=== PATIENT | male | born 1965 | race Caucasian/White ===

== ENCOUNTER → 2017-11-21 15:19 | Outpatient (CLI) | payer MEDICARE, MEDICAID, SELFPAY ==
--- NOTE | 2017-11-21 15:16 | DI.REPORT_ITS ---
SYMPTOMS/DIAGNOSIS: F/U LEFT DISTAL PHALANX FRACTURE LEFT RING FINGER: A single lateral view was obtained at the request of the ordering physician. Comparison is 07/13/17. The patient's ring finger is in a splint. On the lateral view, there is a displaced fracture involving the dorsal aspect of the base of the distal phalanx. There is soft tissue swelling noted.
== END ==
PROVIDERS: PCP Family Medicine; Visit Provider Student in an Organized Health Care Education/Training Program
DX: S62.665A Nondisplaced fracture of distal phalanx of left ring finger, initial encounter for closed fracture (principal); W01.10XA Fall on same level from slipping, tripping and stumbling with subsequent striking against unspecified object, initial encounter
CPT/HCPCS: 73140; 29130; 99214

== ENCOUNTER 2017-12-24 03:43 | Outpatient (CLI) | payer MEDICARE, MEDICAID, SELFPAY ==
[2017-12-24 10:42] LABS: ALT 119 U/L (12-78); AST 67 U/L (15-37); Albumin 4.1 g/dL (3.4-5.0); Alkaline Phosphatase 132 U/L (46-116); Anion Gap 10.9 mmol/L (3-11); BUN 13 mg/dL (7-18); Bilirubin, Total 0.6 mg/dL (0.2-1.0); CO2 26.1 mmol/L (21.0-32.0); CREATININE 0.94 mg/dL (0.70-1.30); Calcium 8.7 mg/dL (8.5-10.1); Chloride 101 mmol/L (98-107); Glucose 200 mg/dL (70-100); Potassium 4.3 mmol/L (3.5-5.1); Sodium 138 mmol/L (136-145); Total Protein 7.4 g/dL (6.4-8.2)
[2017-12-26 05:31] LABS: Hemoglobin A1C 7.7 % (4.5-6.2)
== END 2017-12-24 04:03 ==
PROVIDERS: Internal Medicine; PCP Family Medicine; Visit Provider Family Medicine
DX: E11.9 Type 2 diabetes mellitus without complications (principal)
CPT/HCPCS: 36415; 80053; 83036

== ENCOUNTER 2017-12-28 15:00 | Outpatient (CLI) | payer MEDICARE, MEDICAID, SELFPAY ==
--- NOTE | 2017-12-28 14:45 | DI.RAD_ITS ---
SYMPTOMS/DIAGNOSIS: PAIN, R52 STERNUM: Three views. No osseous abnormalities identified. IMPRESSION: Negative examination.
== END 2017-12-28 15:20 ==
PROVIDERS: PCP Family Medicine; Visit Provider Internal Medicine
DX: R07.2 Precordial pain (principal)
CPT/HCPCS: 71120

== ENCOUNTER → 2018-01-02 15:03 | Outpatient (BNVA) | payer MEDICARE, MEDICAID, SELFPAY | PROVIDERS: PCP Family Medicine; Referring Provider Family Medicine; Visit Provider Student in an Organized Health Care Education/Training Program | DX: S62.665D Nondisplaced fracture of distal phalanx of left ring finger, subsequent encounter for fracture with routine healing (principal); W01.10XD Fall on same level from slipping, tripping and stumbling with subsequent striking against unspecified object, subsequent encounter | CPT/HCPCS: 99213 ==

== ENCOUNTER 2018-03-07 02:03 | Outpatient (CLI) | payer MEDICARE, MEDICAID, SELFPAY ==
[2018-03-07 12:14] LABS: ALT 103 U/L (12-78); AST 53 U/L (15-37); Albumin 4.3 g/dL (3.4-5.0); Alkaline Phosphatase 114 U/L (46-116); Anion Gap 9.2 mmol/L (3-11); BUN 16 mg/dL (7-18); Bilirubin, Total 0.5 mg/dL (0.2-1.0); CO2 29.8 mmol/L (21.0-32.0); CREATININE 0.89 mg/dL (0.70-1.30); Calcium 9.6 mg/dL (8.5-10.1); Chloride 99 mmol/L (98-107); GGT 198 U/L (15-85); Glucose 179 mg/dL (70-100); Potassium 4.5 mmol/L (3.5-5.1); Sodium 138 mmol/L (136-145); Total Protein 7.7 g/dL (6.4-8.2)
[2018-03-07 14:10] LABS: Hemoglobin A1C 7.4 % (4.5-6.2)
== END 2018-03-07 02:23 ==
PROVIDERS: PCP Family Medicine; Visit Provider Family Medicine
DX: R94.5 Abnormal results of liver function studies (principal); E11.9 Type 2 diabetes mellitus without complications
CPT/HCPCS: 36415; 80053; 82977; 83036

== ENCOUNTER 2018-06-03 00:52 | Outpatient (CLI) | payer MEDICARE, MEDICAID, SELFPAY ==
[2018-06-03 10:05] LABS: Hemoglobin A1C 7.4 % (4.5-6.2)
[2018-06-03 10:40] LABS: ALT 80 U/L (12-78); AST 43 U/L (15-37); Alkaline Phosphatase 108 U/L (46-116); BUN 22 mg/dL (7-18); Bilirubin, Total 0.6 mg/dL (0.2-1.0); CREATININE 1.02 mg/dL (0.70-1.30); Calcium 9.3 mg/dL (8.5-10.1); Chloride 99 mmol/L (98-107); Cholesterol 166 mg/dL (50-200); GGT 156 U/L (15-85); Glucose 173 mg/dL (70-100); HDL Cholesterol 40 mg/dL (40-60); LDL CHOLESTEROL 96 mg/dL (<100); Potassium 4.6 mmol/L (3.5-5.1); Sodium 141 mmol/L (136-145); Total Protein 7.6 g/dL (6.4-8.2); Triglyceride 261 mg/dL (30-150)
[2018-06-03 10:51] LABS: Uric Acid 4.7 mg/dL (3.5-7.2)
[2018-06-03 16:47] LABS: COMMENT (LAB VIEW ONLY) 149.83 mg/dL
== END 2018-06-03 01:12 ==
PROVIDERS: PCP Family Medicine; Visit Provider Family Medicine
DX: I63.9 Cerebral infarction, unspecified (principal); E11.9 Type 2 diabetes mellitus without complications; I10 Essential (primary) hypertension; E78.5 Hyperlipidemia, unspecified; M10.9 Gout, unspecified; R94.5 Abnormal results of liver function studies
CPT/HCPCS: 36415; 80053; 80061; 83721; 82043; 82570; 82977; 83036; 84550

== ENCOUNTER → 2018-06-06 09:22 | Outpatient (BNVA) | payer MEDICARE, MEDICAID, SELFPAY | PROVIDERS: PCP Family Medicine; Visit Provider Nurse Practitioner Adult Health | DX: G43.009 Migraine without aura, not intractable, without status migrainosus (principal); E11.40 Type 2 diabetes mellitus with diabetic neuropathy, unspecified; Z79.84 Long term (current) use of oral hypoglycemic drugs; I10 Essential (primary) hypertension | CPT/HCPCS: 99213 ==

== ENCOUNTER 2018-07-11 01:51 | Outpatient (CLI) | payer MEDICARE, MEDICAID, SELFPAY ==
[2018-07-11 11:08] LABS: Hemoglobin A1C 6.9 % (4.5-6.2)
[2018-07-11 12:05] LABS: ALT 91 U/L (12-78); AST 44 U/L (15-37); Albumin 4.2 g/dL (3.4-5.0); Alkaline Phosphatase 115 U/L (46-116); Anion Gap 9.2 mmol/L (3-11); BUN 16 mg/dL (7-18); Bilirubin, Total 0.3 mg/dL (0.2-1.0); CO2 30.8 mmol/L (21.0-32.0); CREATININE 0.93 mg/dL (0.70-1.30); Calcium 9.7 mg/dL (8.5-10.1); Chloride 101 mmol/L (98-107); Glucose 162 mg/dL (70-100); Potassium 4.3 mmol/L (3.5-5.1); Sodium 141 mmol/L (136-145); Total Protein 7.9 g/dL (6.4-8.2)
== END 2018-07-11 02:11 ==
PROVIDERS: PCP Family Medicine; Visit Provider Family Medicine
DX: E11.9 Type 2 diabetes mellitus without complications (principal)
CPT/HCPCS: 36415; 80053; 83036

== ENCOUNTER 2018-10-28 00:17 | Outpatient (CLI) | payer MEDICARE, MEDICAID, SELFPAY ==
[2018-10-28 10:17] LABS: Hemoglobin A1C 7.9 % (4.5-6.2)
[2018-10-28 11:15] LABS: ALT 88 U/L (12-78); AST 51 U/L (15-37); Alkaline Phosphatase 107 U/L (46-116); Anion Gap 10.4 mmol/L (3-11); BUN 18 mg/dL (7-18); Bilirubin, Total 0.6 mg/dL (0.2-1.0); CO2 26.6 mmol/L (21.0-32.0); CREATININE 0.94 mg/dL (0.70-1.30); Calcium 8.6 mg/dL (8.5-10.1); Chloride 103 mmol/L (98-107); GGT 164 U/L (15-85); Glucose 210 mg/dL (70-100); Potassium 4.3 mmol/L (3.5-5.1); Sodium 140 mmol/L (136-145); Total Protein 7.2 g/dL (6.4-8.2)
== END 2018-10-28 00:37 ==
PROVIDERS: PCP Family Medicine; Visit Provider Family Medicine
DX: Z72.89 Other problems related to lifestyle (principal); E11.9 Type 2 diabetes mellitus without complications; R94.5 Abnormal results of liver function studies
CPT/HCPCS: 36415; 80053; 82977; 83036

== ENCOUNTER 2019-01-23 02:08 | Outpatient (CLI) | payer MEDICARE, MEDICAID, SELFPAY ==
[2019-01-23 11:00] LABS: Hemoglobin A1C 6.5 % (4.5-6.2)
[2019-01-23 12:43] LABS: ALT 55 U/L (16-63); AST 29 U/L (15-37); Albumin 4.1 g/dL (3.4-5.0); Alkaline Phosphatase 101 U/L (46-116); BUN 18 mg/dL (7-18); Bilirubin, Total 0.5 mg/dL (0.2-1.0); CREATININE 1.08 mg/dL (0.70-1.30); Chloride 102 mmol/L (98-107); Glucose 153 mg/dL (70-100); Potassium 4.3 mmol/L (3.5-5.1); Sodium 139 mmol/L (136-145); Total Protein 7.8 g/dL (6.4-8.2)
== END 2019-01-23 02:28 ==
PROVIDERS: PCP Family Medicine; Visit Provider Family Medicine
DX: E11.9 Type 2 diabetes mellitus without complications (principal); I10 Essential (primary) hypertension
CPT/HCPCS: 36415; 80053; 83036

== ENCOUNTER 2019-04-17 00:52 | Outpatient (CLI) | payer MEDICARE, MEDICAID, SELFPAY ==
--- NOTE | 2019-04-17 14:16 | DI.US_ITS ---
EXAM: US CAROTID CLINICAL HISTORY: h/o carotid stenosis, CVA, cerebral infarction, I63.9 TECHNIQUE: Ultrasound performed using standard protocol. COMPARISON: CAROTID ULTRASOUND from 05/27/2016 FINDINGS: Bilateral duplex carotid ultrasound was performed. There is bilateral antegrade vertebral flow. The re is little if any visible atheromatous plaque in the carotid circulation. Flow velocities in commo n internal and external carotid arteries are within normal limits bilaterally. IMPRESSION: No evidence of a hemodynamically significant carotid stenosis.
== END 2019-04-17 01:12 ==
PROVIDERS: PCP Family Medicine; Visit Provider Family Medicine
DX: I63.9 Cerebral infarction, unspecified (principal); Z86.79 Personal history of other diseases of the circulatory system
CPT/HCPCS: 93880

== ENCOUNTER → 2019-06-04 13:19 | Outpatient (BNVA) | payer MEDICARE, MEDICAID, SELFPAY | PROVIDERS: PCP Family Medicine; Referring Provider Family Medicine; Visit Provider Nurse Practitioner Adult Health | DX: G43.009 Migraine without aura, not intractable, without status migrainosus (principal) | CPT/HCPCS: 99213 ==

== ENCOUNTER 2019-06-25 14:36 | Outpatient (CLI) | payer MEDICARE, MEDICAID, SELFPAY ==
[2019-06-25 15:26] LABS: Calculated LDL 110 mg/dL (<100); Cholesterol 210 mg/dL (<200); HDL Cholesterol 43 mg/dL (40-60); Triglyceride 289 mg/dL (<150)
[2019-06-25 16:18] LABS: Hemoglobin A1C 6.2 % (3.8-5.6)
== END 2019-06-25 14:56 ==
PROVIDERS: PCP Family Medicine; Visit Provider Family Medicine
DX: E11.9 Type 2 diabetes mellitus without complications (principal); N40.0 Benign prostatic hyperplasia without lower urinary tract symptoms; I63.9 Cerebral infarction, unspecified
CPT/HCPCS: 36415; 80061; 83036; 84153

== ENCOUNTER 2020-04-01 11:36 | Outpatient (RCR) | payer OTHER, MEDICAID, SELFPAY ==
--- NOTE | 2020-04-01 12:30 | HOLTER_ITS ---
APPROVED REPORT Exam Type: HOLTER MONITOR APPLICATION Reason for Test: tachycardia Patient Location: O Conclusion This is a 48-hour Holter monitor ordered for indication of tachycardia. ???The patient was in normal sinus rhythm for the majority of the recording with an average heart rat e of 86 bpm. Maximal heart rate in sinus rhythm was 140 bpm. ???There was one episode of SVT which lasted 4 beats. There were rare PACs. ???There were no episodes of ventricular tachycardia and rare PVCs. ???There were no episodes of atrial fibrillation, no pauses greater than 3 seconds and no evidence of high degree heart block. ???There were no patient triggered events.
== END 2020-04-17 23:59 | disposition home or self-care (01) ==
LOC: RT 11:36
PROVIDERS: PCP Family Medicine; Visit Provider Family Medicine
DX: R00.0 Tachycardia, unspecified (principal); I49.1 Atrial premature depolarization; I47.2 Ventricular tachycardia
CPT/HCPCS: 93227; 93225; 93226

== ENCOUNTER 2020-04-03 01:38 | Outpatient (CLI) | payer OTHER, MEDICAID, SELFPAY ==
[2020-04-03 14:44] LABS: Hemoglobin A1C 7.8 % (<5.7)
[2020-04-03 14:46] LABS: ALT 70 U/L (16-63); AST 38 U/L (15-37); Albumin 4.3 g/dL (3.4-5.0); Alkaline Phosphatase 108 U/L (46-116); Anion Gap 12.6 mmol/L (3-11); BUN 15 mg/dL (7-18); Bilirubin, Total 0.4 mg/dL (0.2-1.0); CO2 23.4 mmol/L (21.0-32.0); CREATININE 1.11 mg/dL (0.70-1.30); Calcium 9.3 mg/dL (8.5-10.1); Chloride 102 mmol/L (98-107); Glucose 182 mg/dL (74-106); Potassium 4.1 mmol/L (3.5-5.1); Sodium 138 mmol/L (136-145); TSH (W/Ref FT4) 1.54 uIU/mL (0.36-3.74); Total Protein 7.7 g/dL (6.4-8.2); Uric Acid 3.4 mg/dL (3.5-7.2)
[2020-04-03 14:57] LABS: Calculated LDL 58 mg/dL (<100); Cholesterol 154 mg/dL (<200); HDL Cholesterol 42 mg/dL (40-60); Triglyceride 271 mg/dL (<150)
[2020-04-03 16:24] LABS: COMMENT (LAB VIEW ONLY) 65.84 mg/dL; Microalb ug/mg Crea 54.8 ug/mg Cr
[2020-04-03 23:09] LABS: PSA, Screening 1.9 ng/mL (0.0-3.5)
== END 2020-04-03 01:58 ==
PROVIDERS: PCP Family Medicine; Visit Provider Family Medicine
DX: I10 Essential (primary) hypertension (principal); E78.5 Hyperlipidemia, unspecified; E11.9 Type 2 diabetes mellitus without complications; M10.9 Gout, unspecified; R00.0 Tachycardia, unspecified; Z12.5 Encounter for screening for malignant neoplasm of prostate
CPT/HCPCS: 36415; 80053; 80061; 84153; 82043; 82570; 83036; 84443; 84550

== ENCOUNTER 2020-04-25 02:58 | Outpatient (CLI) | payer OTHER, MEDICAID, SELFPAY ==
[2020-04-26 15:45] LABS: COVID-19 RT-PCR Result NEGATIVE (Negative)
== END 2020-04-25 03:18 ==
PROVIDERS: PCP Family Medicine; Visit Provider Internal Medicine Cardiovascular Disease
DX: Z11.59 Encounter for screening for other viral diseases (principal); Z01.810 Encounter for preprocedural cardiovascular examination
CPT/HCPCS: U0003

== ENCOUNTER 2020-05-06 02:45 | Outpatient (CLI) | payer OTHER, MEDICAID, SELFPAY ==
[2020-05-07 19:10] LABS: COVID-19 RT-PCR UVMMC Result Negative (Negative)
== END 2020-05-06 03:05 ==
PROVIDERS: Family Medicine; PCP Family Medicine; Visit Provider Internal Medicine Cardiovascular Disease
DX: Z11.52 Encounter for screening for COVID-19 (principal)
CPT/HCPCS: U0003

== ENCOUNTER 2020-05-09 02:52 | Outpatient (CLI) | payer OTHER, MEDICAID, SELFPAY ==
--- NOTE | 2020-05-09 09:00 | ETT_ITS ---
APPROVED REPORT Exam: Exercise Treadmill Patient Location: Out-Patient Room/Bed: Stress Nurse: Sammi Lynne RN Ordering Provider:ALEC CELAYA, Contact Number: [phone] BMI: 41.04 Baseline Rhythm: Sinus Rhythm Comment: Flattened/inverted T waves noted Indications: Tachycardia, chest pressure, chest pain Medical History Medical History: Anxiety, depression, diabetes, etoh abuse, hypertension, hyperlipidemia, carotid subha nosis Cardiac Medications: aspirin, glipizide, lisinopril, omeprazole, rosuvastatin, sitagliptin Allergies: Penicillin, diphenhydramine Cardiac Risk Factors: hypertension, hyperlipidemia, diabetes, obesity, family hx, smoker (former) Previous Cardiac Procedures: None Pretest Chest Pain Characteristics: None Exercise History: Sedentary Physical Disabilities: None Lung Sounds: Clear to auscultation Heart Sounds: Regular Stress Test Details Test: Exercise stress testing was performed using a Eladio protocol. Rest Stress HR Resting HR Supine: 81 bpm Max Heart Rate (APMHR): 164 bpm Resting HR Standin bpm Target HR (85% APMHR): 139 bpm Max HR Achieved: 158 bpm % of APMHR: 96 Recovery HR: 112 bpm HR response to stress: Normal HR response to stress BP Resting BP Supine: 156/92 mmHg Resting BP Standin/80 mmHg Max BP: 192/76 mmHg Recovery BP: 148/76 mmHg BP response to stress: Normal blood pressure response to stress. ECG Resting ECG: Sinus Rhythm Ectopy: None Stress ECG: Sinus Tachycardia ST Change: Horizontal ST depression Lead(s): III, AVF Stage: [address] Deviation: 1 mm Arrhythmia: None Recovery ECG: Sinus Tachycardia Recovery ST Change: No significant ST segment changes noted Recovery Arrhythmia: None Clinical Reason for Termination: Leg pain, dyspnea Stress Symptoms: Leg pain, dyspnea Exercise duration: 4 min34 sec Highest Stage Reached: Stage 2: 2.5 mph at 12% grade. Exercise capacity: 7.00 METs Kamara Treadmill Score: 4.3 Rate Pressure Product: 11510 Stress ECG Conclusion 1. Resting electrocardiogram was normal 2. Patient exercised on the Eladio protocol. He completed a workload of 7 METS, limited by shortness of breath and leg pain. 3. Normal heart rate and blood pressure response to exercise. The patient achieved 96% of predicted heart rate for age 4. Electrocardiographically there was ST depression noted in inferior and lateral leads consistent wi th myocardial ischemia 5. There were no significant dysrhythmias 6. Suggest repeat with imaging if clinically indicated Kamara Treadmill Score is 4.3 which is Moderate risk. Stress Test Summary STAGE Time (mins) Speed (mph) Grade (%) HR BP SYMPTOMS METS Supine 81 156/92 Standing 97 142/80 1 3 1.7 10 140 4.6 1 min recovery 136 186/80 3 min recovery 124 192/76 6 min recovery 112 154/76 9 min recovery 112 148/76 12 min recovery 112 22 min recovery 113 Pt remained tachycardic after 24 minutes in recovery, 113 HR. Pt denied symptoms and stated he did no t take any of his medications today. Instructed to return home and take medications.
== END 2020-05-09 03:12 ==
PROVIDERS: PCP Family Medicine; Visit Provider Family Medicine
DX: R00.0 Tachycardia, unspecified (principal); R07.89 Other chest pain; I10 Essential (primary) hypertension; E78.5 Hyperlipidemia, unspecified; E11.9 Type 2 diabetes mellitus without complications; E66.9 Obesity, unspecified; Z82.49 Family history of ischemic heart disease and other diseases of the circulatory system; Z87.891 Personal history of nicotine dependence
CPT/HCPCS: 93016; 93018; 93017

== ENCOUNTER 2020-05-14 01:51 | Outpatient (CLI) | payer OTHER, MEDICAID, SELFPAY ==
--- NOTE | 2020-05-14 06:45 | DI.US_ITS ---
EXAM: US ABDOMEN CLINICAL HISTORY: ELEVATED LFT'S,R79.89 TECHNIQUE: Ultrasound abdomen performed using standard protocol. COMPARISON: No exams were available for comparison FINDINGS: LIVER: The liver is enlarged, measuring 24 cm in length. There is increased echogenicity consistent with moderate to severe diffuse fatty infiltration.. Posterior portions of the liver are suboptimall y visualized. No focal liver lesions are seen.. GALLBLADDER: No evidence of cholelithiasis. No evidence of wall thickening. No pericholecystic fluid identified. ELLSWORTH'S SIGN: Negative. BILIARY SYSTEM: No intrahepatic or extrahepatic biliary ductal dilation. KIDNEYS: Kidneys are symmetric in size. No evidence of renal calculi. No evidence of hydronephrosis. No renal mass or cyst identified. PANCREAS: Normal where visualized. SPLEEN: Borderline enlargement with a length 12.6 cm. ABDOMINAL AORTA AND IVC: Visualized portions normal caliber. ASCITES: None seen. IMPRESSION: Enlarged liver with moderate to severe fatty infiltration. DATA REPOSITORY:
--- NOTE | 2020-05-14 06:45 | DI.US_ITS ---
APPROVED REPORT EXAM: Comprehensive 2D, Doppler, and color-flow Echocardiogram Patient Location: Out-Patient Android Developer: Hue Zhong RDCS (AE) Indications: Tachycardia, HTN, DM Other Information Study Quality: Fair Conclusion Normal left ventricular wall thickness and chamber size. Estimated ejection fraction is 55 to 60%. There are no segmental wall motion abnormalities Normal right ventricular size and systolic function Both atria are normal in size There are no structural or hemodynamically significant valvular abnormalities Mildly dilated ascending aorta, measuring 3.77 cm Wall motion Left Ventricle The left ventricle is normal size. The left ventricular systolic function is normal. The left ventric ular ejection fraction is within the normal range. There is normal left ventricular wall thickness. T here is normal LV segmental wall motion. There is no ventricular septal defect visualized. LVEF is 55 -60%. Right Ventricle The right ventricle is normal size. The right ventricular systolic function is normal. Atria The left atrium size is normal. The right atrium size is normal. The interatrial septum is intact wit h no evidence for an atrial septal defect. Aortic Valve The aortic valve is normal in structure. Aortic valve is trileaflet. There is no aortic valvular sten osis. No aortic regurgitation is present. Mitral Valve The mitral valve is normal in structure. No evidence of mitral valve stenosis. Trace mitral regurgita tion. Tricuspid Valve The tricuspid valve is normal in structure. There is no tricuspid valve stenosis. Trace tricuspid reg urgitation. Unable to assess PA pressure. Pulmonic Valve Pulmonic valve is not well visualized. There is no pulmonic valvular stenosis. There is no pulmonic v alvular regurgitation. Great Vessels The aortic root is normal in size. The ascending aorta is mildly dilated. Aortic arch is normal in ca liber. The IVC is normal in size and collapses >50% with inspiration. Pericardium There is no pericardial effusion. 2D Dimensions IVSD d PLAX 1.09 cm M: 0.6-1.2 LV Vol A2C d MOD 85.6 mL LVPW d PLAX 1.09 cm M: 0.6 - 1.2 LV Vol A4C d MOD 124.8 mL LVID d PLAX 4.59 cm M: 4.2 - 5.8 LA vol/ BSA A2C s A-L 17.7 mL/m2 LVDs 3.45 cm M: 2.5 - 4.0 LA vol/ BSA A4C s A-L 15.4 mL/m2 Ao Root d 2.90 cm M: 3.1 - 3.7 LA Vol/ BSA Biplane s A-L 17.5 mL/m2 RA Area A4C 16.09 cm2 LA Area A4C s MOD 15.51 cm2 RA Vol/ BSA A4C s A-L 18.4 mL/m2 LA Area A2C s MOD 15.69 cm2 Ao Asc Diam d 3.77 cm M: 2.6 - 3.4 LV EF A4C MOD 50.2 % LV EF Teichholz 49.2 % LV EF A2C MOD 50.0 % LVEF (Finch's) 51.08 % M: 52 - 72 LV EF Biplane MOD 51.1 % LV Volume 75.81 mL M: 62 - 150 SV 54.14 mL LV Volume Index 32.67 mL/m2 M: 34 - 74 SV Index 23.32 mL/m2 LV Vol Biplane MOD 106.0 mL FS 24.80 % M-Mode TAPSE 2.14 cm (M/F) >1.7 LV Diastology MV E' medial 0.130 (>0.07 m/s) E/A Ratio 1.1 LV E/e MED 6.10 (<14) MV E Vmax 0.79 (0.4-1.3 m/s) MV E' lateral 0.123 (>0.1 m/s) MV A Vmax 0.70 (0.4-1.3 m/s) LV E/e LAT 6.40 (<14) MV E/A Ratio 1.07 MV E/E' medial 6.13 MV E/E' lateral 6.43 Aortic Valve LVOT Area 3.80 cm2 AoV Area Vmax 3.34 cm2 LVOT Vmax 1.10 m/s AoV Area/ BSA (Vmax) 1.44 cm2/m2 LVOT Mean Yanick. 0.68 m/s BRONWYN Mean Yanick. 2.84 cm2 LVOT Peak Grad 4.8 mmHg BRONWYN Mean Yanick. Index 1.22 cm2/m2 LVOT Mean Grad 2.2 mmHg LVOT VTI 0.210 m LVOT Diam s 2.15 cm AoV Vmax 1.25 m/s Velocity Ratio 0.88 AoV Mean Yanick. 0.90 m/s AoV Peak Grad 6.2 mmHg LVOT SV 79.92 mL AoV Mean Grad 3.7 mmHg AoV VTI 0.221 m AoV Area VTI 3.61 cm2 AoV Area/ BSA (VTI) 1.55 cm/m2 Mitral Valve MV DT 193 (160-240 msec) MV PHT 56 msec MV Area PHT 3.92 cm2 MV VTI 0.300 m MV Area VTI 2.66 (4.0-6.0 cm2) Pulmonary Valve PV Vmax 1.19 (0.5-1.5 m/s) RVOT Peak Gr. 2.21 mmHg PV Peak Grad 5.7 mmHg RVOT Mean Gr. 1.15 mmHg PV Mean Grad 3.1 mmHg RVOT VTI 0.153 m PV VTI 0.189 m RVOT Vmax 0.74 m/s
== END 2020-05-14 02:11 ==
PROVIDERS: PCP Family Medicine; Visit Provider Family Medicine
DX: R79.89 Other specified abnormal findings of blood chemistry (principal); E11.9 Type 2 diabetes mellitus without complications; I10 Essential (primary) hypertension; R00.0 Tachycardia, unspecified; I77.810 Thoracic aortic ectasia; K76.0 Fatty (change of) liver, not elsewhere classified
CPT/HCPCS: 93306; 76700

== ENCOUNTER → 2020-06-02 08:41 | Outpatient (BNVA) | payer OTHER, MEDICAID, SELFPAY | PROVIDERS: PCP Family Medicine; Referring Provider Family Medicine; Visit Provider Nurse Practitioner Adult Health | DX: G43.009 Migraine without aura, not intractable, without status migrainosus (principal) | CPT/HCPCS: 99213 ==

== ENCOUNTER 2020-06-09 03:03 | Outpatient (CLI) | payer OTHER, MEDICAID, SELFPAY ==
[2020-06-09 14:24] LABS: Hemoglobin A1C 8.3 % (<5.7)
[2020-06-09 15:23] LABS: ALT 67 U/L (16-63); AST 30 U/L (15-37); Albumin 4.6 g/dL (3.4-5.0); Alkaline Phosphatase 117 U/L (46-116); BUN 22 mg/dL (7-18); Bilirubin, Total 0.3 mg/dL (0.2-1.0); CREATININE 1.1 mg/dL (0.70-1.30); Calcium 9.7 mg/dL (8.5-10.1); Chloride 99 mmol/L (98-107); Glucose 228 mg/dL (74-106); Potassium 4.3 mmol/L (3.5-5.1); Sodium 138 mmol/L (136-145); Total Protein 8.5 g/dL (6.4-8.2)
== END 2020-06-09 03:04 | disposition home or self-care (01) ==
LOC: LBO 03:03
PROVIDERS: PCP Family Medicine; Visit Provider Family Medicine
DX: E11.9 Type 2 diabetes mellitus without complications (principal); R79.89 Other specified abnormal findings of blood chemistry
CPT/HCPCS: 36415; 80053; 83036

== ENCOUNTER 2020-09-03 02:56 | Outpatient (CLI) | payer OTHER, MEDICAID, SELFPAY ==
[2020-09-03 08:19] LABS: Hemoglobin A1C 6.5 % (<5.7)
== END 2020-09-03 02:57 | disposition home or self-care (01) ==
PROVIDERS: PCP Family Medicine; Visit Provider Family Medicine
DX: E11.9 Type 2 diabetes mellitus without complications (principal)
CPT/HCPCS: 36415; 83036

== ENCOUNTER 2020-12-10 12:52 | Outpatient (CLI) | payer OTHER, MEDICAID, SELFPAY ==
[2020-12-10 13:35] LABS: Hemoglobin A1C 6.2 % (<5.7)
== END 2020-12-10 12:53 | disposition home or self-care (01) ==
LOC: LBO 12:56
PROVIDERS: PCP Family Medicine; Visit Provider Family Medicine
DX: E11.9 Type 2 diabetes mellitus without complications (principal)
CPT/HCPCS: 36415; 83036

== ENCOUNTER 2021-05-11 03:36 | Outpatient (CLI) | payer MEDICARE, MEDICAID, SELFPAY ==
[2021-05-11 11:54] LABS: Hemoglobin A1C 5.8 % (<5.7)
[2021-05-11 13:12] LABS: ALT 38 U/L (16-63); AST 24 U/L (15-37); Albumin 4.3 g/dL (3.4-5.0); Alkaline Phosphatase 81 U/L (46-116); Anion Gap 10.1 mmol/L (3-11); BUN 18 mg/dL (7-18); Bilirubin, Total 0.5 mg/dL (0.2-1.0); CO2 26.9 mmol/L (21.0-32.0); CREATININE 0.9 mg/dL (0.70-1.30); Calcium 9.1 mg/dL (8.5-10.1); Calculated LDL 67 mg/dL (<100); Chloride 101 mmol/L (98-107); Cholesterol 150 mg/dL (<200); Glucose 115 mg/dL (74-106); HDL Cholesterol 58 mg/dL (40-60); Potassium 4.5 mmol/L (3.5-5.1); Sodium 138 mmol/L (136-145); Total Protein 7.8 g/dL (6.4-8.2); Triglyceride 128 mg/dL (<150)
== END 2021-05-11 03:37 | disposition home or self-care (01) ==
LOC: LBO 03:37
PROVIDERS: PCP Family Medicine; Visit Provider Family Medicine
DX: E78.5 Hyperlipidemia, unspecified (principal); E11.9 Type 2 diabetes mellitus without complications
CPT/HCPCS: 36415; 80053; 80061; 83036

== ENCOUNTER → 2021-05-14 09:29 | Outpatient (BNVA) | payer MEDICARE, MEDICAID, SELFPAY | PROVIDERS: PCP Family Medicine; Referring Provider Family Medicine; Visit Provider Nurse Practitioner Adult Health | DX: G43.009 Migraine without aura, not intractable, without status migrainosus (principal) | CPT/HCPCS: 99213; 99214 ==

== ENCOUNTER → 2021-07-06 08:58 | Outpatient (BNVA) | payer MEDICARE, MEDICAID, SELFPAY | PROVIDERS: PCP Family Medicine; Visit Provider Nurse Practitioner Adult Health | DX: G43.009 Migraine without aura, not intractable, without status migrainosus (principal) | CPT/HCPCS: 99213; 99214 ==

== ENCOUNTER 2021-09-07 14:41 | Outpatient (CLI) | payer MEDICARE, MEDICAID, SELFPAY | END 2021-09-07 14:42 | disposition home or self-care (01) | LOC: LBO 14:43 | PROVIDERS: PCP Family Medicine; Visit Provider Physician Assistant | DX: U07.1 COVID-19 (principal) | CPT/HCPCS: 36415; 82565 ==

== ENCOUNTER → 2021-10-14 10:24 | Outpatient (BNVA) | payer MEDICARE, MEDICAID, SELFPAY | PROVIDERS: PCP Family Medicine; Referring Provider Family Medicine; Visit Provider Nurse Practitioner Adult Health | DX: G43.009 Migraine without aura, not intractable, without status migrainosus (principal); R20.0 Anesthesia of skin | CPT/HCPCS: 99213; 99214 ==

== ENCOUNTER → 2021-12-09 09:31 | Outpatient (BNVA) | payer MEDICARE, MEDICAID, SELFPAY | PROVIDERS: PCP Family Medicine; Referring Provider Family Medicine; Visit Provider Nurse Practitioner Adult Health | DX: G43.009 Migraine without aura, not intractable, without status migrainosus (principal); R20.0 Anesthesia of skin | CPT/HCPCS: 99212; 99213 ==

== ENCOUNTER 2021-12-30 13:54 | Observation (INO) | payer MEDICARE, MEDICAID, SELFPAY ==
[2021-12-30] VITALS (33 sets, daily range): BP systolic 108–132; BP diastolic 65–82; PULSE 68–94; RESP 11–19; TEMP 36.4–37.1; O2SAT 95–96
--- NOTE | 2021-12-30 14:00 | RT.EKG_ITS ---
APPROVED REPORT Exam: Resting ECG Reason for Exam: sternal discomfort when breathing Patient Location: E HR:78 bpm ECG Measurements Heart Rate 78 AXIS VT 145 P 59 QRSd 85 QRS 46 QT 346 T 5 QTc 395 Conclusion Sinus rhythm...normal P axis, V-rate 60- 99 Physician: Rate 78, sinus rhythm, no significant ST elevations or depressions. No evidence of STEMI. unchanged
--- NOTE | 2021-12-30 14:00 | DI.CT_ITS ---
Exam(s) CT CHEST/ABD/PEL W EXAM: CT CHEST/ABD/PEL W CLINICAL HISTORY: vomiting, epigasrtic and chest pain, breathing josé luis. TECHNIQUE: Imaging Protocol: Axial computed tomography images with coronal and sagittal reformatted images were created and reviewed CONTRAST MATERIAL: Intravenous: Omnipaque 350 Contrast volume:100 ml Oral: None COMPARISON: No exams were available for comparison FINDINGS: CHEST: LUNGS: There is some platelike atelectasis and mild increased markings in both lower lobes. No pleur al effusions. No ominous pulmonary nodules. No significant focal findings in the trachea and mainst em bronchi. MEDIASTINUM: There is no hilar nor mediastinal adenopathy. Visualized thyroid unremarkable. CARDIAC: Heart size is normal. There is a small anterior pericardial effusion maximum thickness 12 m illimeters. This does not cover the apex.Caliber thoracic aorta is within normal limits. There is n o dissection. 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 OSSEOUS: No significant osseous lesions.. ABDOMEN: There is no ascites. LIVER: There are no focal hepatic lesions nor dilatation of intrahepatic ducts. GALLBLADDER/BILIARY: No obvious gallbladder pathology. CBD is not dilated. PANCREAS: No evidence of pancreatic mass nor dilatation of the pancreatic duct. SPLEEN: Spleen is not enlarged. There are no intrasplenic lesions. Splenic and portal veins are gamez nt. ADRENALS: There are no significant adrenal masses. KIDNEYS: No calculi nor hydronephrosis. No solid renal masses. No cysts evident. ABDOMINAL AORTA: Abdominal aorta is not enlarged. LYMPH NODES: There is no retroperitoneal nor paraaortic adenopathy. ABDOMINAL WALL: No evidence of significant anterior abdominal wall nor inguinal hernia. GI: There is no evidence of bowel obstruction. PELVIS: LYMPH NODES: There is no intrapelvic nor inguinal adenopathy. GI: The appendix is abnormal. It is widened, measuring 12 millimeters in diameter. It contains flui d and 3 calcified appendicoliths. There is no periappendiceal streaking.No evidence of sigmoid diver ticulitis. URINARY BLADDER: Mildly distended. No obvious masses nor calculi therein. REPRODUCTIVE: Enlarged and slightly lobulated prostate gland. OSSEOUS: No significant osseous lesions. No fractures. IMPRESSION: 1. Small pericardial effusion limited to the right side of the anterior pericardium but exhibiting th ickness 12 millimeters. Size is normal. 2. Appendix is abnormal, suspicious for appendicitis. The appendix is thickened to diameter of 12 mi llimeters and contains fluid and calcified appendicoliths. There is, however, no periappendiceal fat stranding. There is no adenopathy in the mesoappendix. Report called by myself to ER physician RADIATION DOSE DELIVERED: 1,849.14mGy.cm Total DLP DATA REPOSITORY: All CT scans at this facility are submitted to the National Radiology Data Registry (NRDR) Dose Index Registry (DIR) with the [employer] ([employer]). RADIATION OPTIMIZATION: All CT scans at this facility use at least one of these dose optimization te chniques: automated exposure control; mA and/or kV adjustment per patient size (includes targeted exa ms where dose is matched to clinical indication); or iterative reconstruction.
--- NOTE | 2021-12-30 14:23 | ED.GENADUL_ITS ---
Discharge Plan Disposition Patient Disposition: STILL A PATIENT Condition: Stable Discharge Details Chief Complaint: Abd Prob Clinical Impression: Acute epigastric pain Primary Care Provider: Kanwal Griffin ED Provider: Anthony Gandhi Home Meds and New Rx's Prescriptions: No Action aspirin 81 mg tablet,delayed release (DR/EC) 81 mg PO DAILY (DME) blood-glucose meter Misc See Dose Instructions .ROUTE .MEDSUPPLY Qty: 1 0RF Dose Instruction: As directed Rx Instructions: One touch verio E11.9 Once daily testing Balanced B-100 Complex 100 mg tablet extended release PO cyproheptadine 4 mg tablet See Rx Instructions PO DAILY Qty: 60 2RF Rx Instructions: Take 4 mg orally daily; May take an additional 4mg daily as needed for headaches multivitamin 1 EACH tablet 1 tab PO DAILY allopurinol 300 mg tablet 300 mg PO DAILY Qty: 90 4RF (DME) Blood Glucose Test Strip See Rx Instructions .ROUTE .MEDSUPPLY Qty: 100 7RF Rx Instructions: One Touch Verio test strips E11.9. Test daily Jardiance 25 mg tablet 25 mg PO QAM Qty: 90 5RF esomeprazole magnesium [Nexium] 20 mg capsule,delayed release(DR/EC) 20 mg PO DAILY Qty: 90 4RF gabapentin 300 mg capsule 300 mg PO BID Qty: 180 5RF glipizide 10 mg tablet extended release 24hr See Rx Instructions .ROUTE .COMPLEX Qty: 90 5RF Dose Instruction: TAKE 1 TABLET BY MOUTH DAILY Rx Instructions: TAKE 1 TABLET BY MOUTH DAILY (DME) lancets [FreeStyle Lancets] 28 gauge misc See Rx Instructions .ROUTE .MEDSUPPLY Qty: 100 5RF Rx Instructions: daily testing E11.9. One Touch Verio Lancets lisinopril 10 mg tablet 10 mg PO DAILY Qty: 90 4RF nystatin 100,000 unit/gram cream 1 - 2 applic TP BID PRN (Reason: rash) Qty: 30 1RF risperidone [Risperdal] 1 mg tablet 1 mg PO .AM Qty: 90 4RF risperidone [Risperdal] 2 mg tablet 2 mg PO HS Qty: 90 4RF rosuvastatin 10 mg tablet 10 mg PO DAILY Qty: 90 4RF Januvia 100 mg tablet 100 mg PO DAILY Qty: 90 11RF venlafaxine 75 mg capsule,extended release 24hr 75 mg PO DAILY Qty: 90 5RF naproxen sodium [Aleve] 220 MG tablet 220 mg PO BID PRN Medical Decision Making This is a 56-year-old male with past medical history of previous stroke, alcohol abuse, hypertension, high cholesterol, who presents today for evaluation of epigastric and chest pain. Patient states that 3 days ago he had had 8 episodes of vomiting. It was nonbloody. After that he has been able to eat without complication but he has had persistent epigastric pain and lower chest pain. He states it is worse when he stretches back. It does not seem to be worsened with food. He denies any current nausea. He denies any tearing or ripping pain. He denies any pleuritic chest pain. He denies any cough or fever. No other complaints at this time. He denies any history of cardiac disease. Exam demonstrates evidence of mild epigastric tenderness, minimal lower chest tenderness over the xiphoid process. No guarding or rebound. Bowel sounds present. Lung sounds are clear. Differential includes pancreatitis, diverticulitis, less likely cardiac or pulmonary etiology. Due to his age and risk factors we will evaluate for these concerning etiologies, monitor closely and reassess. 3:20 PM Laboratory work-up is stable. Pending CT scan. Patient will be signed out to my colleague Dr. Antwan Morataya for follow-up on imaging. EKG 14: 12 Rate 78, sinus rhythm, no significant ST elevations or depressions. No evidence of STEMI. HPI General Date/Time Provider Initiated Documentation: 12/30/21 14:08 . HPI Narrative: This is a 56-year-old male with past medical history of previous stroke, alcohol abuse, hypertension, high cholesterol, who presents today for evaluation of epigastric and chest pain. Patient states that 3 days ago he had had 8 episodes of vomiting. It was nonbloody. After that he has been able to eat without complication but he has had persistent epigastric pain and lower chest pain. He states it is worse when he stretches back. It does not seem to be worsened with food. He denies any current nausea. He denies any tearing or ripping pain. He denies any pleuritic chest pain. He denies any cough or fever. No other complaints at this time. He denies any history of cardiac disease. Related Data Home Medications Medication Instructions Recorded Confirmed multivitamin 1 tab PO DAILY 07/13/12 12/30/21 naproxen sodium 220 mg tablet 220 mg PO BID PRN 12/19/15 12/30/21 (Aleve) aspirin 81 mg tablet,delayed 81 mg PO DAILY 03/25/21 12/30/21 release blood-glucose meter #1 ea 05/14/21 12/30/21 allopurinol 300 mg tablet 300 mg PO DAILY #90 tabs 06/18/21 12/30/21 blood sugar diagnostic (Blood #100 ea 06/18/21 12/30/21 Glucose Test strips) empagliflozin 25 mg tablet 25 mg PO QAM #90 tabs 06/18/21 12/30/21 (Jardiance) esomeprazole magnesium 20 mg 20 mg PO DAILY #90 caps 06/18/21 12/30/21 capsule,delayed release (Nexium) gabapentin 300 mg capsule 300 mg PO BID #180 caps 06/18/21 12/30/21 glipizide 10 mg tablet, extended See Rx Instructions .Route 06/18/21 12/30/21 release 24 hr .COMPLEX #90 tabs lancets 28 gauge (FreeStyle #100 ea 06/18/21 12/30/21 Lancets) lisinopril 10 mg tablet 10 mg PO DAILY #90 tabs 06/18/21 12/30/21 nystatin 100,000 unit/gram topical 1 - 2 applic topical BID PRN rash 06/18/21 12/30/21 cream #30 grams risperidone 1 mg tablet (Risperdal) 1 mg PO .AM #90 tabs 06/18/21 12/30/21 risperidone 2 mg tablet (Risperdal) 2 mg PO HS #90 tabs 06/18/21 12/30/21 rosuvastatin 10 mg tablet 10 mg PO DAILY #90 tabs 06/18/21 12/30/21 sitagliptin 100 mg tablet (Januvia) 100 mg PO DAILY #90 tabs 06/18/21 12/30/21 venlafaxine 75 mg capsule,extended 75 mg PO DAILY #90 caps 06/18/21 12/30/21 release 24 hr vit B complex 100 combo no.2 100 tab PO 06/18/21 12/30/21 mg tablet,extended release (Balanced B-100 Complex) cyproheptadine 4 mg tablet See Rx Instructions PO DAILY 12/09/21 12/30/21 migraine headache #60 tabs Previous Rx's Medication Instructions Recorded blood-glucose meter #1 ea 05/14/21 allopurinol 300 mg tablet 300 mg PO DAILY #90 tabs 06/18/21 blood sugar diagnostic (Blood #100 ea 06/18/21 Glucose Test strips) empagliflozin 25 mg tablet 25 mg PO QAM #90 tabs 06/18/21 (Jardiance) esomeprazole magnesium 20 mg 20 mg PO DAILY #90 caps 06/18/21 capsule,delayed release (Nexium) gabapentin 300 mg capsule 300 mg PO BID #180 caps 06/18/21 glipizide 10 mg tablet, extended See Rx Instructions .Route 06/18/21 release 24 hr .COMPLEX #90 tabs lancets 28 gauge (FreeStyle #100 ea 06/18/21 Lancets) lisinopril 10 mg tablet 10 mg PO DAILY #90 tabs 06/18/21 nystatin 100,000 unit/gram topical 1 - 2 applic topical BID PRN rash 06/18/21 cream #30 grams risperidone 1 mg tablet (Risperdal) 1 mg PO .AM #90 tabs 06/18/21 risperidone 2 mg tablet (Risperdal) 2 mg PO HS #90 tabs 06/18/21 rosuvastatin 10 mg tablet 10 mg PO DAILY #90 tabs 06/18/21 sitagliptin 100 mg tablet (Januvia) 100 mg PO DAILY #90 tabs 06/18/21 venlafaxine 75 mg capsule,extended 75 mg PO DAILY #90 caps 06/18/21 release 24 hr cyproheptadine 4 mg tablet See Rx Instructions PO DAILY 12/09/21 migraine headache #60 tabs Allergies Allergy/AdvReac Type Severity Reaction Status Date / Time Penicillins Allergy Unknown Verified 12/30/21 14:01 venom-honey bee Allergy Swelling Verified 12/30/21 14:01 metformin AdvReac Intermediate diarrhea Verified 12/30/21 14:01 diphenhydramine HCl AdvReac hyper Verified 12/30/21 14:01 General Stated Complaint: Abd Prob SIS: 3 Review of Systems All systems reviewed & are unremarkable except as noted in HPI and below PFSH All Active Problems (Updated 12/30/21 @ 15:21 by Anhtony Gandhi DO) Acute epigastric pain (Acute) Left leg numbness (Acute) Right leg numbness (Acute) COVID-19 (Acute) 09/05/21 Vaccinated, booster 03/25/21 Anterior epistaxis (Acute) Encounter for screening colonoscopy (Acute) Facial pain (Acute) Bilateral impacted cerumen (Acute) Fall (Acute) Migraine headache without aura (Acute) Abnormal stress test (Acute) ischemic changes in inferior and lateral leads - needs cath LFT elevation (Acute) Chest pressure (Acute) Sleep apnea (Acute) Encounter for annual physical exam (Acute) Tachycardia (Acute) Sinus pain (Acute) Conductive hearing loss, external ear (Acute) Carpal tunnel syndrome (Acute) Foot pain (Acute) Ventricular arrhythmia (Acute 12/16/06) Vivid dream (Acute 02/08/17) Sensorineural hearing loss (SNHL), bilateral (Chronic) Chronic left-sided low back pain with left-sided sciatica (Acute) Unspecified intellectual disabilities (Chronic) IQ-53 Syrinx of spinal cord (Chronic 06/13/17) Reduced libido (Chronic 04/01/11) Peptic reflux disease (Chronic) Multiple somatic complaints (Chronic) Hyperlipidemia (Chronic 09/19/12) Gout (Chronic 06/08/17) Essential hypertension (Chronic 05/18/13) Diabetes mellitus (Chronic 09/19/12) Depressive disorder (Chronic) with psychotic features hears voices DISH (diffuse idiopathic skeletal hyperostosis) (Chronic 03/09/17) Carotid stenosis, right (Chronic 07/01/16) per ulatrsound May 2016. Asymptomatic. Needs yearly ultrasound follow-up. Anxiety (Chronic) Alcohol intake above recommended sensible limits (Chronic) Hyperlipidemia (Chronic) Hypertension (Chronic) Medical History Abdominal pain 03/17/02 neg h. 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) Right facial numbness (05/26/16) OCCASIONALLY Shoulder pain right; with bursitis S/P surgery Skin lesion (04/19/17) Unspecified sprain of left wrist, subsequent encounter (01/12/16) Vivid dream (02/08/17) Weakness of right side of body (05/26/16) Surgical History Colonoscopy - MAC (~02/2011) EGD - MAC (~02/2011) EXTRACTION, TEETH (~12/1989) H/O esophagogastroduodenoscopy 02/16/11 H/O tooth extraction 04/18/89 H/O tooth extraction 04/18/89 History of esophagogastroduodenoscopy History of shoulder surgery History of tooth extraction S/P wrist surgery 04/18/09 SHOULDER SURGERY (~04/2009) Status post wrist surgery WRIST SURGERY (~04/2009) Family History Mother , AGE 56 Essential hypertension Leukemia Stomach cancer Father , AGE 85 Essential hypertension Depression Stroke Alcohol abuse A-fib Heart disease Sister Essential hypertension Heart disease Hyperlipidemia Sister Essential hypertension Cancer skin Sister No problems noted. Maternal Grandfather , AGE 68 Essential hypertension Heart disease Paternal Grandfather , AGE 83 Essential hypertension Stomach cancer Colon cancer Maternal Grandmother , AGE 89 Asthma Paternal Grandmother , AGE 84 Stroke Asthma Social History Smoking/Tobacco Use Status: Former Tobacco Use tobacco type: cigarettes Quit Date: 04/18/81 Tobacco: How many years used: 35 Smokeless tobacco user: chewing tobacco Second Hand Exposure: Yes Smoking risk assessment performed?: Yes Alcohol Intake: never Drug use: Never Substance use type: does not use Household members: spouse Housing: house Communication Needs: Hard of Hearing, Corrective Lenses and Cannot Read Do you need help understanding health information?: Often 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 Pets and animals: Yes Pets and animals: cat(s) Sexually active: No Do you think of yourself as: straight/heterosexual Current gender identity: male What is your relationship status?: How often do you talk on the phone with friends or family?: three or more times per week How often do you get together with friends or relatives?: twice per week How often do you attend denominational or lutheran services?: 1-3 times per year Do you belong to any clubs or organized social groups?: no Panel score (0-1 are the most socially isolated patients): 2 What type of physical activity do you participate in: walking and aerobic Duration: 30-45 minutes/day Frequency: 5-6 times per week Tatianna/Protestant: Lutheran Special tatianna needs: No Seatbelt use: always Helmet use: No Drive intox or ride w/intox 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 3.ENT: Atraumatic external nose and ears. Moist MM. Neck: Symmetric, trachea midline, No thyromegaly. 4.CVS: +S1/S2, No murmurs or gallops. Peripheral pulses 2+ and equal in all extremities. Brisk capillary refill in all extremities. 5.RESP: Unlabored respiratory effort. Clear to auscultation bilaterally. No wheezes rales or rhonchi 6.GI: Mildly bloated, minimal epigastric tenderness. No guarding or rebound. No pain at McBurney's point, negative Maldonado sign. 7.MSK: Normocephalic/Atraumatic, Extremities w/o deformity or ttp No cyanosis or clubbing, Normal movement of all extremities 8.Skin: Warm, Dry. No rashes or lesions. 9.Neuro: director presales II-XII grossly intact. Sensation grossly intact, no focal neurologic deficits. 10.Psych: (AAO) x3. Appropriate mood and affect Course Vital Signs Vital signs: Vital Signs Temperature 36.4 C L 12/30/21 13:58 Pulse 94 H 12/30/21 13:58 Respiratory Rate 16 12/30/21 13:58 Blood Pressure 131/82 12/30/21 13:58 Pulse Oximetry 96 12/30/21 13:58 Temperature 36.4 C L 12/30/21 13:58 Temperature Source Oral 12/30/21 13:58 Pulse 94 H 12/30/21 13:58 Respiratory Rate 16 12/30/21 13:58 Respiratory Effort Non-Labored 12/30/21 14:04 Blood Pressure 131/82 12/30/21 13:58 Blood Pressure Position Sitting 12/30/21 13:58 Pulse Oximetry 96 12/30/21 13:58 Oxygen Delivery Method Room Air 12/30/21 13:58 Oxygen Flow Rate 0 12/30/21 13:58 Pain Level 3 12/30/21 13:58
[2021-12-30 14:29] LABS: Abs Immature Grans 0.03 10^3/uL (0.0-0.06); Absolute Basophil Count 0.05 10^3/uL (0.0-0.2); Absolute Eosinophil Count 0.31 10^3/uL (0.0-0.7); Absolute Lymphocyte Count 2.18 10^3/uL (1.2-3.4); Absolute Monocyte Count 0.95 10^3/uL (0.1-0.8); Absolute Neutrophil Count 4.49 10^3/uL (1.2-6.7); Basophils % 0.6; Eosinophils % 3.9; HGB 17.1 g/dL (13.5-17.5); Immature Grans % 0.4; Lymphocytes % 27.2; MCH 29.5 pg (27.0-33.0); MCHC 33.5 % (32.0-36.0); MCV 88 fL (80-95); MPV 10.7 fL (8.0-11.0); Monocytes % 11.9; Platelet Count 219 10^3/uL (130-400); RDW 13.2 % (11.8-14.1); RDW-SD 42.4 fL; WBC 8.01 10^3/uL (4.4-10.8)
[2021-12-30] MEDS: Pantoprazole 40 MG VIAL IVP (14:40)
[2021-12-30 14:59] LABS: ALT 38 U/L (16-63); AST 20 U/L (15-37); Albumin 4.2 g/dL (3.4-5.0); Alkaline Phosphatase 84 U/L (46-116); Anion Gap 7.7 mmol/L (3-11); BUN 19 mg/dL (7-18); Bilirubin, Total 0.4 mg/dL (0.2-1.0); CO2 28.3 mmol/L (21.0-32.0); CREATININE 0.9 mg/dL (0.70-1.30); Calcium 9.1 mg/dL (8.5-10.1); Chloride 102 mmol/L (98-107); Glucose 108 mg/dL (74-106); Lipase 144 U/L (73-393); Potassium 3.8 mmol/L (3.5-5.1); Sodium 138 mmol/L (136-145); Troponin I < 50 ng/L (<or=60)
[2021-12-30] MEDS: Omnipaque 350 MG/ML 100 ML BTL IV (16:20)
[2021-12-30] MEDS: Normal Saline Flush 10 ML SYR IVP (16:23)
[2021-12-30 16:41] LABS: Bilirubin Negative (Negative); Blood Negative (Negative); Clarity Clear (Clear); Glucose >=1000 mg/dL (Negative); Ketones Negative (Negative); Leukocyte Esterase Negative (Negative); Nitrite Negative (Negative); Specific Gravity <= 1.005 (1.005-1.025); Urobilinogen 0.2 EU/dL (Up TO 0.2); pH 5.5 (5-8)
[2021-12-30] MEDS: Normal Saline 1,000 ML 150 ML IV (16:51)
[2021-12-30 17:32] LABS: Source Nasal/Nares
[2021-12-30 17:40] LABS: Troponin I < 50 ng/L (<or=60)
[2021-12-30 18:04] LABS: COVID-19 PCR Negative (Negative)
--- NOTE | 2021-12-30 18:05 | W.PM.HP.N ---
Date of service: 12/30/21 Time of Service: 18:05 Assessment and Plan Assessment and plan (1) Abdominal pain: Status: Acute Assessment and plan: mr. Chaudhary is a pleasant 56 year old male with a PMHx significant for DM, HTN, who comes in to the ER with abdominal pain for 3 days which started after a bout of vomiting after he ate a [place]. His pain is more central. His CT scan shows a dilated and thickened appendix but no inflammation. He also has a small pericardial effusion He had a abnormal stress test done and that followed up with a cath. The cath showed no reversible issues. he is managed with metoprolol. Will admit for observation. IV fluids, NPO and repeat labs and exam in am. If pain worsens then may need laparoscopic appendectomy tomorrow. I did order an urgent ECHO due to the pericardial effusion. The plan was discussed with the patient and his and they agreed to proceed. History of Present Illness Consults Consult date: 12/30/21 Requesting physician: Antwan Morataya Narrative: Mr. Chaudhary is a pleasant 56 year old male who comes to the ED today because of abdominal pain. He had a sandwich on Tuesday around 10 am. A few hours later he felt sick to his stomach and vomited the undigested sandwich. He states that after that he started to have mid to lower abdominal pain that was generalized. He denies any diarrhea,Nausea or fevers. He has had no more episodes of vomiting. His labs are normal. His CT scan, which I reviewed today showed a dilated apopendix with a thickened wall but no inflammation. Also noted was a small pericardial effusion. Patient denies chest pain. Per Dr. Morataya his EKG today was normal. Radiologists interpretation: FINDINGS: CHEST: LUNGS: There is some platelike atelectasis and mild increased markings in both lower lobes.? No pleural effusions.? No ominous pulmonary nodules.? No significant focal findings in the trachea and mainstem bronchi.? MEDIASTINUM: There is no hilar nor mediastinal adenopathy. Visualized thyroid unremarkable. CARDIAC: Heart size is normal.? There is a small anterior pericardial effusion maximum thickness 12 millimeters.? This does not cover the apex.Caliber thoracic aorta is within normal limits.? There is no dissection.? 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 OSSEOUS: No significant osseous lesions.. ABDOMEN: There is no ascites. LIVER: There are no focal hepatic lesions nor dilatation of intrahepatic ducts.? GALLBLADDER/BILIARY: No obvious gallbladder pathology.? CBD is not dilated. PANCREAS: No evidence of pancreatic mass nor dilatation of the pancreatic duct.? SPLEEN: Spleen is not enlarged. There are no intrasplenic lesions.? Splenic and portal veins are patent. ADRENALS: There are no significant adrenal masses. KIDNEYS: No calculi nor hydronephrosis. No solid renal masses. No cysts evident. ABDOMINAL AORTA: Abdominal aorta is not enlarged. LYMPH NODES: There is no retroperitoneal nor paraaortic adenopathy. ABDOMINAL WALL: No evidence of significant anterior abdominal wall nor inguinal hernia.? GI: There is no evidence of bowel obstruction. PELVIS:? LYMPH NODES: There is no intrapelvic nor inguinal adenopathy. GI: The appendix is abnormal.? It is widened, measuring 12 millimeters in diameter.? It contains fluid and 3 calcified appendicoliths.? There is no periappendiceal streaking.No evidence of sigmoid diverticulitis. URINARY BLADDER: Mildly distended.? No obvious masses nor calculi therein. REPRODUCTIVE: Enlarged and slightly lobulated prostate gland. OSSEOUS: No significant osseous lesions. No fractures. IMPRESSION: 1. Small pericardial effusion limited to the right side of the anterior pericardium but exhibiting thickness 12 millimeters.? Size is normal. 2. Appendix is abnormal, suspicious for appendicitis.? The appendix is thickened to diameter of 12 millimeters and contains fluid and calcified appendicoliths.? There is, however, no periappendiceal fat stranding.? There is no adenopathy in the mesoappendix. HIs PMHx is significant for Diabetes, HTN, Migrain headaches. He had a stress test in the past which was abnormal. He had a cath done at [facility] which showed no major vascular narrowing and no reversible defects. He is managed medically on Metoprolol. ([facility] [place] are in the patients chart on Med Surg). Review of Systems Constitutional Constitutional: Denies fatigue, Denies fever(s), Denies headache(s), Denies poor appetite and Denies weight loss Eyes Eyes: Denies change in vision ENT Ears, Nose, Mouth, and Throat: Denies change in voice, Denies dysphagia and Denies headache(s) Cardiovascular Cardiovascular: Denies chest pain, Denies chest pain at rest, Denies irregular heart rhythm, Denies palpitations and Denies dyspnea Respiratory Respiratory: Denies cough and Denies dyspnea Gastrointestinal Gastrointestinal: Reports as per HPI and Denies dysphagia Genitourinary Genitourinary: Reports system reviewed and no additional complaints, except as documented Musculoskeletal Musculoskeletal: Reports system reviewed and no additional complaints, except as documented Integumentary/Breasts Skin/Breast: Reports system reviewed and no additional complaints, except as documented Neurologic Neurologic: Denies headache(s) Psychiatric Psychiatric: Reports system reviewed and no additional complaints, except as documented Endocrine Endocrine: Denies fatigue and Denies palpitations PFSH All Active Problems Abdominal pain (Acute) Left leg numbness (Acute) Right leg numbness (Acute) COVID-19 (Acute) 09/05/21 Vaccinated, booster 03/25/21 Anterior epistaxis (Acute) Encounter for screening colonoscopy (Acute) Facial pain (Acute) Bilateral impacted cerumen (Acute) Fall (Acute) Migraine headache without aura (Acute) Abnormal stress test (Acute) ischemic changes in inferior and lateral leads - needs cath LFT elevation (Acute) Chest pressure (Acute) Sleep apnea (Acute) Encounter for annual physical exam (Acute) Tachycardia (Acute) Sinus pain (Acute) Conductive hearing loss, external ear (Acute) Carpal tunnel syndrome (Acute) Foot pain (Acute) Ventricular arrhythmia (Acute 12/16/06) Vivid dream (Acute 02/08/17) Sensorineural hearing loss (SNHL), bilateral (Chronic) Chronic left-sided low back pain with left-sided sciatica (Acute) Unspecified intellectual disabilities (Chronic) IQ-53 Syrinx of spinal cord (Chronic 06/13/17) Reduced libido (Chronic 04/01/11) Peptic reflux disease (Chronic) Multiple somatic complaints (Chronic) Hyperlipidemia (Chronic 09/19/12) Gout (Chronic 06/08/17) Essential hypertension (Chronic 05/18/13) Diabetes mellitus (Chronic 09/19/12) Depressive disorder (Chronic) with psychotic features hears voices DISH (diffuse idiopathic skeletal hyperostosis) (Chronic 03/09/17) Carotid stenosis, right (Chronic 07/01/16) per [facility]atrs[facility] May 2016. Asymptomatic. Needs yearly ultrasound follow-up. Anxiety (Chronic) Alcohol intake above recommended sensible limits (Chronic) Hyperlipidemia (Chronic) Hypertension (Chronic) Medical History Abdominal pain 03/17/02 neg h. 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) Right facial numbness (05/26/16) OCCASIONALLY Shoulder pain right; with bursitis S/P surgery Skin lesion (04/19/17) Unspecified sprain of left wrist, subsequent encounter (01/12/16) Vivid dream (02/08/17) Weakness of right side of body (05/26/16) Surgical History Colonoscopy - MAC (~02/2011) EGD - MAC (~02/2011) EXTRACTION, TEETH (~12/1989) H/O esophagogastroduodenoscopy 02/16/11 H/O tooth extraction 04/18/89 H/O tooth extraction 04/18/89 History of esophagogastroduodenoscopy History of shoulder surgery History of tooth extraction S/P wrist surgery 04/18/09 SHOULDER SURGERY (~04/2009) Status post wrist surgery WRIST SURGERY (~04/2009) Family History Mother , AGE 56 Essential hypertension Leukemia Stomach cancer Father , AGE 85 Essential hypertension Depression Stroke Alcohol abuse A-fib Heart disease Sister Essential hypertension Heart disease Hyperlipidemia Sister Essential hypertension Cancer skin Sister No problems noted. Maternal Grandfather , AGE 68 Essential hypertension Heart disease Paternal Grandfather , AGE 83 Essential hypertension Stomach cancer Colon cancer Maternal Grandmother , AGE 89 Asthma Paternal Grandmother , AGE 84 Stroke Asthma Social History Smoking/Tobacco Use Status: Former Tobacco Use tobacco type: cigarettes Quit Date: 04/18/81 Tobacco: How many years used: 35 Smokeless tobacco user: chewing tobacco Second Hand Exposure: Yes Smoking risk assessment performed?: Yes Alcohol Intake: never Drug use: Never Substance use type: does not use Household members: spouse Housing: house Communication Needs: Hard of Hearing, Corrective Lenses and Cannot Read Do you need help understanding health information?: Often current occupation: [employer] Pets and animals: Yes Pets and animals: cat(s) Sexually active: No Do you think of yourself as: straight/heterosexual Current gender identity: male What is your relationship status?: How often do you talk on the phone with friends or family?: three or more times per week How often do you get together with friends or relatives?: twice per week How often do you attend mandaen or orthodox services?: 1-3 times per year Do you belong to any clubs or organized social groups?: no Panel score (0-1 are the most socially isolated patients): 2 What type of physical activity do you participate in: walking and aerobic Duration: 30-45 minutes/day Frequency: 5-6 times per week Eagle/Sabianist: Rastafari Special eagle needs: No Seatbelt use: always Helmet use: No Drive intox or ride w/intox 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 Do you feel safe at home: Yes Do you feel safe in your relationship?: Yes Victim of physical abuse: No Victim of emotional abuse: No Victim of sexual abuse: No Would you like helpful sources: No Meds Allergies and Home Medications Allergies Allergy/AdvReac Type Severity Reaction Status Date / Time Penicillins Allergy Unknown Verified 12/30/21 14:01 venom-honey bee Allergy Swelling Verified 12/30/21 14:01 metformin AdvReac Intermediate diarrhea Verified 12/30/21 14:01 diphenhydramine HCl AdvReac hyper Verified 12/30/21 14:01 Home Medications Medication Instructions Recorded Confirmed Type multivitamin 1 tab PO DAILY 07/13/12 12/30/21 History naproxen sodium 220 mg tablet 220 mg PO BID PRN 12/19/15 12/30/21 History (Aleve) aspirin 81 mg tablet,delayed 81 mg PO DAILY 03/25/21 12/30/21 History release blood-glucose meter #1 ea 05/14/21 12/30/21 Rx allopurinol 300 mg tablet 300 mg PO DAILY #90 tabs 06/18/21 12/30/21 Rx blood sugar diagnostic (Blood #100 ea 06/18/21 12/30/21 Rx Glucose Test strips) empagliflozin 25 mg tablet 25 mg PO QAM #90 tabs 06/18/21 12/30/21 Rx (Jardiance) esomeprazole magnesium 20 mg 20 mg PO DAILY #90 caps 06/18/21 12/30/21 Rx capsule,delayed release (Nexium) gabapentin 300 mg capsule 300 mg PO BID #180 caps 06/18/21 12/30/21 Rx glipizide 10 mg tablet, extended See Rx Instructions .Route 06/18/21 12/30/21 Rx release 24 hr .COMPLEX #90 tabs lancets 28 gauge (FreeStyle #100 ea 06/18/21 12/30/21 Rx Lancets) lisinopril 10 mg tablet 10 mg PO DAILY #90 tabs 06/18/21 12/30/21 Rx nystatin 100,000 unit/gram topical 1 - 2 applic topical BID PRN rash 06/18/21 12/30/21 Rx cream #30 grams risperidone 1 mg tablet (Risperdal) 1 mg PO .AM #90 tabs 06/18/21 12/30/21 Rx risperidone 2 mg tablet (Risperdal) 2 mg PO HS #90 tabs 06/18/21 12/30/21 Rx rosuvastatin 10 mg tablet 10 mg PO DAILY #90 tabs 06/18/21 12/30/21 Rx sitagliptin 100 mg tablet (Januvia) 100 mg PO DAILY #90 tabs 06/18/21 12/30/21 Rx venlafaxine 75 mg capsule,extended 75 mg PO DAILY #90 caps 06/18/21 12/30/21 Rx release 24 hr vit B complex 100 combo no.2 100 tab PO 06/18/21 12/30/21 History mg tablet,extended release (Balanced B-100 Complex) cyproheptadine 4 mg tablet See Rx Instructions PO DAILY 12/09/21 12/30/21 Rx migraine headache #60 tabs Exam Const General: cooperative, comfortable and no acute distress Nutritional Appearance: obese Orientation: alert and oriented x3 HENMT Head: normocephalic and atraumatic Resp Effort & Inspection: normal respiratory effort Auscultation: clear to auscultation bilaterally Cardio Rate: regular rate Rhythm: regular rhythm Heart Sounds: no gallops, no murmurs and no rubs GI Palpation: soft, no hepatosplenomegaly and tender (mid abdomen and LLQ more the RLQ) Results Imaging Abdomen CT scan report/results: report reviewed and image reviewed Labs Result diagrams: 12/30/21 14:15 12/30/21 14:15 Labs: Laboratory Results - last 24 hr 12/30/21 12/30/21 12/30/21 14:15 14:15 16:20 WBC 8.01 RBC 5.80 H Hgb 17.1 Hct 51.0 H MCV 88 MCH 29.5 MCHC 33.5 RDW 13.2 Plt Count 219 MPV 10.7 Immature Gran % 0.4 Neutrophils % 56.0 Lymphocytes % 27.2 Monocytes % 11.9 Eosinophils % 3.9 Basophils % 0.6 Nucleated RBC % 0.0 Absolute Neutrophils 4.49 Absolute Lymphocytes 2.18 Absolute Monocytes 0.95 H Absolute Eosinophils 0.31 Absolute Basophils 0.05 Sodium 138 Potassium 3.8 Chloride 102 Carbon Dioxide 28.3 Anion Gap 7.7 BUN 19 H Creatinine 0.9 Est GFR (CKD-EPI 2020) 99.00 Glucose 108 H Calcium 9.1 Total Bilirubin 0.4 AST 20 ALT 38 Alkaline Phosphatase 84 Troponin I < 50 Total Protein 8.0 Albumin 4.2 Lipase 144 Urine Color Yellow Urine Clarity Clear Urine pH 5.5 Ur Specific [place] <= 1.005 Urine Protein Negative Urine Ketones Negative Urine Blood Negative Urine Nitrite Negative Urine Bilirubin Negative Urine Urobilinogen 0.2 Ur Leukocyte Esterase Negative Urine Glucose >=1000 H COVID-19 Source SARS-CoV-2 (PCR) 12/30/21 12/30/21 17:17 17:25 WBC RBC Hgb Hct MCV MCH MCHC RDW Plt Count MPV Immature Gran % Neutrophils % Lymphocytes % Monocytes % Eosinophils % Basophils % Nucleated RBC % Absolute Neutrophils Absolute Lymphocytes Absolute Monocytes Absolute Eosinophils Absolute Basophils Sodium Potassium Chloride Carbon Dioxide Anion Gap BUN Creatinine Est GFR (CKD-EPI 2020) Glucose Calcium Total Bilirubin AST ALT Alkaline Phosphatase Troponin I < 50 Total Protein Albumin Lipase Urine Color Urine Clarity Urine pH Ur Specific [place] Urine Protein Urine Ketones Urine Blood Urine Nitrite Urine Bilirubin Urine Urobilinogen Ur Leukocyte Esterase Urine Glucose COVID-19 Source Nasal/Nares SARS-CoV-2 (PCR) Negative Last Vital Signs Temp 97.5 F L 12/30/21 13:58 Pulse 71 12/30/21 17:16 Resp 14 12/30/21 17:20 BP 127/66 12/30/21 17:16 Pulse Ox 96 12/30/21 13:58
--- NOTE | 2021-12-30 18:07 | ED.PROG_ITS ---
Date of service: 12/30/21 Time of Service: 18:08 Medical Decision Making Received signout from Dr. Gandhi. Please see his note regarding his of the initial presentation, exam and plan of care. The patient CT images showed a discrete pericardial effusion with no mechanical effect. The patient has evidence of a 12 mm in appendicitis that is thickened but without evidence of acute stranding. His presentation is somewhat unusual. Case discussed and patient seen in consultation by Dr. Escobedo. Received and reviewed patient's cardiac catheterization from June 16, 2020 in follow-up to abnormal stress test. This revealed no intervene of all disease and decision was made for the patient to be medically managed. Patient to be admitted for observation/medical management. Sign Out Sign Out Data: Sign Out Comment: Abdominal pain and vomiting 2 days ago, follow-up on imaging and reassess. Last updated by Anthony Gandhi DO at 12/30/21 15:32 Discharge Plan Disposition Patient Disposition: [facility] INPATIENT Condition: Stable Discharge Details Clinical Impression: Abdominal pain Admit Date/Time: 12/30/21 18:06 Admit Provider: Bessy Escobedo Attending Provider: Bessy Escobedo Primary Care Provider: Kanwal Griffin ED Provider: Antwan Morataya
[2021-12-30] MEDS: Lactated Ringers 1,000 ML 125 ML IV (19:30)
[2021-12-30] MEDS: Gabapentin 300 MG CAP PO (19:49)
[2021-12-30] MEDS: Docusate Sodium 100 MG CAP PO (19:49)
[2021-12-30] MEDS: risperiDONE 0.5 MG TAB 2 MG PO (21:06)
[2021-12-31 03:00] VITALS: BP 118/74; PULSE 72; RESP 17; TEMP 37; O2SAT 95
[2021-12-31] MEDS: Lactated Ringers 1,000 ML 125 ML IV ×2 (03:04→11:12)
[2021-12-31 07:12] VITALS: BP 121/60; PULSE 65; RESP 16; TEMP 36.8; O2SAT 94
[2021-12-31 07:17] LABS: Abs Immature Grans 0.03 10^3/uL (0.0-0.06); Absolute Basophil Count 0.05 10^3/uL (0.0-0.2); Absolute Lymphocyte Count 2.11 10^3/uL (1.2-3.4); Absolute Monocyte Count 0.93 10^3/uL (0.1-0.8); Absolute Neutrophil Count 3.89 10^3/uL (1.2-6.7); Basophils % 0.7; Eosinophils % 4.1; HCT 48.2 % (40.0-50.0); HGB 16.3 g/dL (13.5-17.5); Immature Grans % 0.4; Lymphocytes % 28.9; MCH 29.4 pg (27.0-33.0); MCHC 33.8 % (32.0-36.0); MCV 87 fL (80-95); MPV 10.5 fL (8.0-11.0); Monocytes % 12.7; Neutrophils % 53.2; Platelet Count 193 10^3/uL (130-400); RBC 5.54 10^6/uL (4.36-5.78); RDW 13.2 % (11.8-14.1); RDW-SD 42.3 fL; WBC 7.31 10^3/uL (4.4-10.8)
--- NOTE | 2021-12-31 07:27 | W.PM.PROGNOT ---
Date of Service Date of service: 12/31/21 Time of Service: 07:27 Assessment and Plan Assessment and plan (1) Abdominal pain: Status: Acute Assessment and plan: His white blood cell count this morning is only 7, and his vital signs are certainly reassuring. I do not think the abdominal exam is exactly consistent with acute appendicitis, nor do I find the CAT scan images particularly worrisome. Subjective Subjective Interval history since last seen: He says he feels a little better this morning, but he still has some ongoing crampy abdominal pain across the lower portion of both the right and left sides of his abdomen. He does have some appetite this morning. He says he has a bit of a new cough, that is mildly productive. Exam Resp Effort & Inspection: normal respiratory effort, able to speak in complete sentences and no respiratory distress Auscultation: bronchial breath sounds GI Inspection: normal to inspection, non-distended and large pannus Palpation: soft, no guarding, no hernias and nontender Percussion: normal to percussion Auscultation: hyperactive bowel sounds Objective Last Vital Signs Temp 98.2 F 12/31/21 07:12 Pulse 65 12/31/21 07:12 Resp 16 12/31/21 07:12 BP 121/60 12/31/21 07:12 Pulse Ox 94 12/31/21 07:12 Laboratory Results - last 24 hr 12/30/21 12/30/21 12/30/21 14:15 14:15 16:20 WBC 8.01 RBC 5.80 H Hgb 17.1 Hct 51.0 H MCV 88 MCH 29.5 MCHC 33.5 RDW 13.2 Plt Count 219 MPV 10.7 Immature Gran % 0.4 Neutrophils % 56.0 Lymphocytes % 27.2 Monocytes % 11.9 Eosinophils % 3.9 Basophils % 0.6 Nucleated RBC % 0.0 Absolute Neutrophils 4.49 Absolute Lymphocytes 2.18 Absolute Monocytes 0.95 H Absolute Eosinophils 0.31 Absolute Basophils 0.05 Sodium 138 Potassium 3.8 Chloride 102 Carbon Dioxide 28.3 Anion Gap 7.7 BUN 19 H Creatinine 0.9 Est GFR (CKD-EPI 2020) 99.00 Glucose 108 H Calcium 9.1 Total Bilirubin 0.4 AST 20 ALT 38 Alkaline Phosphatase 84 Troponin I < 50 Total Protein 8.0 Albumin 4.2 Lipase 144 Urine Color Yellow Urine Clarity Clear Urine pH 5.5 Ur Specific [place] <= 1.005 Urine Protein Negative Urine Ketones Negative Urine Blood Negative Urine Nitrite Negative Urine Bilirubin Negative Urine Urobilinogen 0.2 Ur Leukocyte Esterase Negative Urine Glucose >=1000 H COVID-19 Source SARS-CoV-2 (PCR) 12/30/21 12/30/21 12/31/21 17:17 17:25 06:57 WBC 7.31 RBC 5.54 Hgb 16.3 Hct 48.2 MCV 87 MCH 29.4 MCHC 33.8 RDW 13.2 Plt Count 193 MPV 10.5 Immature Gran % 0.4 Neutrophils % 53.2 Lymphocytes % 28.9 Monocytes % 12.7 Eosinophils % 4.1 Basophils % 0.7 Nucleated RBC % 0.0 Absolute Neutrophils 3.89 Absolute Lymphocytes 2.11 Absolute Monocytes 0.93 H Absolute Eosinophils 0.30 Absolute Basophils 0.05 Sodium Potassium Chloride Carbon Dioxide Anion Gap BUN Creatinine Est GFR (CKD-EPI 2020) Glucose Calcium Total Bilirubin AST ALT Alkaline Phosphatase Troponin I < 50 Total Protein Albumin Lipase Urine Color Urine Clarity Urine pH Ur Specific [place] Urine Protein Urine Ketones Urine Blood Urine Nitrite Urine Bilirubin Urine Urobilinogen Ur Leukocyte Esterase Urine Glucose COVID-19 Source Nasal/Nares SARS-CoV-2 (PCR) Negative
[2021-12-31 07:41] LABS: Anion Gap 6.6 mmol/L (3-11); BUN 14 mg/dL (7-18); CO2 28.4 mmol/L (21.0-32.0); Calcium 8.6 mg/dL (8.5-10.1); Chloride 104 mmol/L (98-107); Estimated GFR 87.24 (mL/min/1.73m2); Glucose 93 mg/dL (74-106); Potassium 3.9 mmol/L (3.5-5.1); Sodium 139 mmol/L (136-145)
[2021-12-31] MEDS: Allopurinol 300 MG TAB PO (08:42)
[2021-12-31] MEDS: Rosuvastatin 10 MG TAB PO (08:42)
[2021-12-31] MEDS: Gabapentin 300 MG CAP PO (08:42)
[2021-12-31] MEDS: Venlafaxine 75 MG CAPCR PO (08:42)
[2021-12-31] MEDS: Cyproheptadine 4 MG TAB PO (08:42)
[2021-12-31] MEDS: SITagliptin 100 MG TAB PO (08:42)
[2021-12-31] MEDS: Lisinopril 10 MG TAB PO (08:42)
[2021-12-31] MEDS: Docusate Sodium 100 MG CAP PO ×2 (08:42→13:42)
[2021-12-31] MEDS: Empaglifozin 25 MG TAB PO (08:42)
[2021-12-31] MEDS: risperiDONE 0.5 MG TAB 1 MG PO (08:43)
--- NOTE | 2021-12-31 10:27 | PDOC.CMIN ---
- If Service Date Differs Date of service: 12/31/21 Time of Service: 10:27 Care Management Initial Assess REASON FOR HOSPITALIZATION:: abdominal pain PAST MEDICAL HISTORY/PAST SURGICAL HISTORY:: All Active Problems . Abdominal pain (Acute). Left leg numbness (Acute). Right leg numbness (Acute). COVID-19 (Acute). 09/05/21. Vaccinated, booster 03/25/21. Anterior epistaxis (Acute). Encounter for screening colonoscopy (Acute). Facial pain (Acute). Bilateral impacted cerumen (Acute). Fall (Acute). Migraine headache without aura (Acute). Abnormal stress test (Acute). ischemic changes in inferior and lateral leads - needs cath. LFT elevation (Acute). Chest pressure (Acute). Sleep apnea (Acute). Encounter for annual physical exam (Acute). Tachycardia (Acute). Sinus pain (Acute). Conductive hearing loss, external ear (Acute). Carpal tunnel syndrome (Acute). Foot pain (Acute). Ventricular arrhythmia (Acute 12/16/06). Vivid dream (Acute 02/08/17). Sensorineural hearing loss (SNHL), bilateral (Chronic). Chronic left-sided low back pain with left-sided sciatica (Acute). Unspecified intellectual disabilities (Chronic). IQ-53. Syrinx of spinal cord (Chronic 06/13/17). Reduced libido (Chronic 04/01/11). Peptic reflux disease (Chronic). Multiple somatic complaints (Chronic). Hyperlipidemia (Chronic 09/19/12). Gout (Chronic 06/08/17). Essential hypertension (Chronic 05/18/13). Diabetes mellitus (Chronic 09/19/12). Depressive disorder (Chronic). with psychotic features. hears voices. DISH (diffuse idiopathic skeletal hyperostosis) (Chronic 03/09/17). Carotid stenosis, right (Chronic 07/01/16). [facility] Asymptomatic. Needs yearly ultrasound follow-up. Anxiety (Chronic). Alcohol intake above recommended sensible limits (Chronic). Hyperlipidemia (Chronic). Hypertension (Chronic). Medical History . Abdominal pain. 03/17/02 neg h. pylori, +liver cyst--resolved. Abdominal pain (03/17/02). Carpal tunnel syndrome. Chest pain. pos ETT and neg MPI. Chest pain. CVA (cerebral vascular accident). Foot pain. 04/18/89 resolved with orthotics. Fracture of distal phalanx of left ring finger. Gastrointestinal hemorrhage. History of ETOH abuse. Impacted cerumen of both ears. 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 Numbness of face (09/14/12). Plantar fascia syndrome (11/04/14). 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 Right facial numbness (05/26/16). OCCASIONALLY. Shoulder pain. right; with bursitis. S/P surgery. Skin lesion (04/19/17). Unspecified sprain of left wrist, subsequent encounter (01/12/16). Vivid dream (02/08/17). Weakness of right side of body (05/26/16). Surgical History . Colonoscopy - MAC (~02/2011). EGD - MAC (~02/2011). EXTRACTION, TEETH (~12/1989). H/O esophagogastroduodenoscopy. 02/16/11. H/O tooth extraction. 04/18/89. H/O tooth extraction. 04/18/89. History of esophagogastroduodenoscopy. History of shoulder surgery. History of tooth extraction. S/P wrist surgery. 04/18/09. SHOULDER SURGERY (~04/2009). Status post wrist surgery. WRIST SURGERY (~04/2009) PREVIOUS FUNCTIONAL STATUS/SOCIAL/FAMILY SUPPORTS:: Arie lives in [place] with his Edna Guaman CURRENT FUNCTIONAL STATUS:: Arie was perparing to discharge when CM met with him. He stated that his pain is better and the provider told him that he likely had a viral infecction. He denied the need for any services. Has patient been provided with info about the portal/API?: Yes Did the patient sign up for the portal?: Yes (previously) CODE STATUS:: Full Code INSURANCE COVERAGE / FINANCIAL ISSUES:: [facility] Medicare Replacement Plan. Medicaid PRIMARY CARE PHYSICIAN:: Kanwal Griffin POTENTIAL DISCHARGE NEEDS:: follow up with surgeon and plan of care PATIENT/FAMILY EDUCATION NEEDS:: Review of discharge instructions, activity, diet, limitations, follow up plan, Ask Me Three TRANSPORTATION:: via private vehicle with family PLAN:: Arie will be discharged home with no new services. He will follow up with his PCP and plan of care and transport with family.
--- NOTE | 2021-12-31 13:36 | DSE_ITS ---
Date of service: 12/31/21 Time of Service: 13:37 DS: Diagnosis Discharge Diagnosis (1) Abdominal pain: Status: Acute Asessment and Plan: This resolved with some gentle resuscitation overnight. It seems most consistent with a mild case of enteritis. Arie was able to tolerate a regular diet today. We will discharge him home, and he can follow-up with his primary care physician. Discharge Plan Disposition Patient Disposition: HOME Condition: Stable Discharge Details Reason For Visit: Abdominal Pain Admit Date/Time: 12/30/21 18:06 Admit Provider: Bessy Escobedo Attending Provider: Bessy Escobedo Primary Care Provider: Kanwal Griffin Hospital Course Hospital Course: Arie is a 56-year-old male who came to the emergency department with lower abdominal pain. He underwent a CAT scan that showed a mildly thickened appendix, but no pericholecystic fluid or inflammation. He was admitted to the hospital overnight with some intravenous fluids. By the following afternoon his symptoms had resolved, and he was tolerating a regular diet. Incidentally, his CAT scan raised the suggestion of a pericardial effusion. He underwent an echocardiogram that refuted that diagnosis. Home Meds and New Rx's Prescriptions: Continued aspirin 81 mg tablet,delayed release (DR/EC) 81 mg PO DAILY (DME) blood-glucose meter Mis See Dose Instructions .ROUTE .MEDSUPPLY Qty: 1 0RF Dose Instruction: As directed Rx Instructions: One touch verio E11.9 Once daily testing Balanced B-100 Complex 100 mg tablet extended release PO cyproheptadine 4 mg tablet See Rx Instructions PO DAILY Qty: 60 2RF Rx Instructions: Take 4 mg orally daily; May take an additional 4mg daily as needed for headaches multivitamin 1 EACH tablet 1 tab PO DAILY allopurinol 300 mg tablet 300 mg PO DAILY Qty: 90 4RF (DME) Blood Glucose Test Strip See Rx Instructions .ROUTE .MEDSUPPLY Qty: 100 7RF Rx Instructions: One Touch Verio test strips E11.9. Test daily Jardiance 25 mg tablet 25 mg PO QAM Qty: 90 5RF esomeprazole magnesium [Nexium] 20 mg capsule,delayed release(DR/EC) 20 mg PO DAILY Qty: 90 4RF gabapentin 300 mg capsule 300 mg PO BID Qty: 180 5RF glipizide 10 mg tablet extended release 24hr See Rx Instructions .ROUTE .COMPLEX Qty: 90 5RF Dose Instruction: TAKE 1 TABLET BY MOUTH DAILY Rx Instructions: TAKE 1 TABLET BY MOUTH DAILY (DME) lancets [FreeStyle Lancets] 28 gauge misc See Rx Instructions .ROUTE .MEDSUPPLY Qty: 100 5RF Rx Instructions: daily testing E11.9. One Touch Verio Lancets lisinopril 10 mg tablet 10 mg PO DAILY Qty: 90 4RF nystatin 100,000 unit/gram cream 1 - 2 applic TP BID PRN (Reason: rash) Qty: 30 1RF risperidone [Risperdal] 1 mg tablet 1 mg PO .AM Qty: 90 4RF risperidone [Risperdal] 2 mg tablet 2 mg PO HS Qty: 90 4RF rosuvastatin 10 mg tablet 10 mg PO DAILY Qty: 90 4RF Januvia 100 mg tablet 100 mg PO DAILY Qty: 90 11RF venlafaxine 75 mg capsule,extended release 24hr 75 mg PO DAILY Qty: 90 5RF naproxen sodium [Aleve] 220 MG tablet 220 mg PO BID PRN Discharge Instructions Instructions: Gastroenteritis (DC) Additional Instructions: Contact your primary care physician for routine follow-up in the next 2 to 3 weeks Referrals: Kanwal Griffin MD, [place] [Primary Care Provider] - Activity:: Activity as Tolerated Equipment/Supplies:: Blood Glucose Monitor Diet:: As Tolerated Discharge Orders Discharge Orders: Discharge Order (Routine); Ordered 12/31/21 Ordered By: Corona Thompson DS: Summary Time Spent with Patient providing and/or coordinating discharge services: Greater than 30 minutes Status at Discharge Functional status at discharge: independent ambulation Overall status at discharge: patient is back to baseline Mental Status: mental status grossly normal Speech and Movement: speech and movement normal Mood: congruent mood Affect: normal affect Exam Const General: cooperative and comfortable Nutritional Appearance: obese Orientation: awake and oriented x3 Eyes General: appearance normal, both eyes and all related structures Conjunctivae: conjunctivae normal Sclera: sclerae normal Resp Effort & Inspection: normal respiratory effort and able to speak in complete sentences Cardio Jugular venous pressure: no JVD Rate: regular rate GI Inspection: non-distended Palpation: soft, no guarding, no hernias and nontender Auscultation: normal bowel sounds Skin General skin exam: normal turgor Neuro General: patient alert, patient awake and patient oriented x3 Cognition: normal cognition Extrem Right lower extremity: no edema Left lower extremity: no edema Psych Mental Status: mental status grossly normal Speech and Movement: speech and movement normal Mood: congruent mood Affect: normal affect DS: Data Vitals/I&O Vitals and I&O: Vital Signs Temperature 98.2 F 12/31/21 07:12 Temperature Source Tympanic 12/31/21 07:12 Pulse 65 12/31/21 07:12 Pulse Rhythm Regular 12/31/21 08:45 Pulse 76 12/30/21 18:01 Respiratory Rate 16 12/31/21 07:12 Respiratory Effort Non-Labored 12/31/21 08:45 Respiratory Depth Normal 12/31/21 08:45 Respiratory Pattern Normal 12/31/21 08:45 Blood Pressure 121/60 12/31/21 07:12 Blood Pressure Mean 80 12/30/21 18:01 Blood Pressure Position Sitting 12/30/21 13:58 Pulse Oximetry 94 12/31/21 07:12 Oxygen Delivery Method Room Air 12/31/21 07:12 Oxygen Flow Rate 0 12/31/21 07:12 Pain Level 2 12/31/21 07:12 Intake & Output 12/30/21 12/31/21 12/31/21 23:59 11:59 23:59 Intake Total 1060 / 1060 1945.833 / 1945.833 Output Total 501 / 501 600 / 600 Balance 559 / 559 1345.833 / 1345.833 Weight 260 lb 3.23 oz Intake: IV 1000 / 1000 1945.833 / 1945.833 Oral 60 / 60 0 / 0 Output: Urine 501 / 501 600 / 600 Other: Urine Color Yellow Yellow Urine Appearance Clear Clear Urine Odor None None Voiding Methods Urinal Toilet Data Completed and Pending Labs on day of discharge: Labs from last 24 hours 12/31/21 12/31/21 12/30/21 06:57 06:57 17:25 WBC 7.31 RBC 5.54 Hgb 16.3 Hct 48.2 MCV 87 MCH 29.4 MCHC 33.8 RDW 13.2 Plt Count 193 MPV 10.5 Immature Gran % 0.4 Neutrophils % 53.2 Lymphocytes % 28.9 Monocytes % 12.7 Eosinophils % 4.1 Basophils % 0.7 Nucleated RBC % 0.0 Absolute Neutrophils 3.89 Absolute Lymphocytes 2.11 Absolute Monocytes 0.93 H Absolute Eosinophils 0.30 Absolute Basophils 0.05 Sodium 139 Potassium 3.9 Chloride 104 Carbon Dioxide 28.4 Anion Gap 6.6 BUN 14 Creatinine 1.0 Est GFR (CKD-EPI 2020) 87.24 Glucose 93 Calcium 8.6 Total Bilirubin AST ALT Alkaline Phosphatase Troponin I Total Protein Albumin Lipase Urine Color Urine Clarity Urine pH Ur Specific [place] Urine Protein Urine Ketones Urine Blood Urine Nitrite Urine Bilirubin Urine Urobilinogen Ur Leukocyte Esterase Urine Glucose COVID-19 Source Nasal/Nares SARS-CoV-2 (PCR) Negative 12/30/21 12/30/21 12/30/21 17:17 16:20 14:15 WBC 8.01 RBC 5.80 H Hgb 17.1 Hct 51.0 H MCV 88 MCH 29.5 MCHC 33.5 RDW 13.2 Plt Count 219 MPV 10.7 Immature Gran % 0.4 Neutrophils % 56.0 Lymphocytes % 27.2 Monocytes % 11.9 Eosinophils % 3.9 Basophils % 0.6 Nucleated RBC % 0.0 Absolute Neutrophils 4.49 Absolute Lymphocytes 2.18 Absolute Monocytes 0.95 H Absolute Eosinophils 0.31 Absolute Basophils 0.05 Sodium Potassium Chloride Carbon Dioxide Anion Gap BUN Creatinine Est GFR (CKD-EPI 2020) Glucose Calcium Total Bilirubin AST ALT Alkaline Phosphatase Troponin I < 50 Total Protein Albumin Lipase Urine Color Yellow Urine Clarity Clear Urine pH 5.5 Ur Specific [place] <= 1.005 Urine Protein Negative Urine Ketones Negative Urine Blood Negative Urine Nitrite Negative Urine Bilirubin Negative Urine Urobilinogen 0.2 Ur Leukocyte Esterase Negative Urine Glucose >=1000 H COVID-19 Source SARS-CoV-2 (PCR) 12/30/21 14:15 WBC RBC Hgb Hct MCV MCH MCHC RDW Plt Count MPV Immature Gran % Neutrophils % Lymphocytes % Monocytes % Eosinophils % Basophils % Nucleated RBC % Absolute Neutrophils Absolute Lymphocytes Absolute Monocytes Absolute Eosinophils Absolute Basophils Sodium 138 Potassium 3.8 Chloride 102 Carbon Dioxide 28.3 Anion Gap 7.7 BUN 19 H Creatinine 0.9 Est GFR (CKD-EPI 2020) 99.00 Glucose 108 H Calcium 9.1 Total Bilirubin 0.4 AST 20 ALT 38 Alkaline Phosphatase 84 Troponin I < 50 Total Protein 8.0 Albumin 4.2 Lipase 144 Urine Color Urine Clarity Urine pH Ur Specific [place] Urine Protein Urine Ketones Urine Blood Urine Nitrite Urine Bilirubin Urine Urobilinogen Ur Leukocyte Esterase Urine Glucose COVID-19 Source SARS-CoV-2 (PCR) PFSH All Active Problems Abdominal pain (Acute) Left leg numbness (Acute) Right leg numbness (Acute) COVID-19 (Acute) 09/05/21 Vaccinated, booster 03/25/21 Anterior epistaxis (Acute) Encounter for screening colonoscopy (Acute) Facial pain (Acute) Bilateral impacted cerumen (Acute) Fall (Acute) Migraine headache without aura (Acute) Abnormal stress test (Acute) ischemic changes in inferior and lateral leads - needs cath LFT elevation (Acute) Chest pressure (Acute) Sleep apnea (Acute) Encounter for annual physical exam (Acute) Tachycardia (Acute) Sinus pain (Acute) Conductive hearing loss, external ear (Acute) Carpal tunnel syndrome (Acute) Foot pain (Acute) Ventricular arrhythmia (Acute 12/16/06) Vivid dream (Acute 02/08/17) Sensorineural hearing loss (SNHL), bilateral (Chronic) Chronic left-sided low back pain with left-sided sciatica (Acute) Unspecified intellectual disabilities (Chronic) IQ-53 Syrinx of spinal cord (Chronic 06/13/17) Reduced libido (Chronic 04/01/11) Peptic reflux disease (Chronic) Multiple somatic complaints (Chronic) Hyperlipidemia (Chronic 09/19/12) Gout (Chronic 06/08/17) Essential hypertension (Chronic 05/18/13) Diabetes mellitus (Chronic 09/19/12) Depressive disorder (Chronic) with psychotic features hears voices DISH (diffuse idiopathic skeletal hyperostosis) (Chronic 03/09/17) Carotid stenosis, right (Chronic 07/01/16) per ulatrsound May 2016. Asymptomatic. Needs yearly ultrasound follow-up. Anxiety (Chronic) Alcohol intake above recommended sensible limits (Chronic) Hyperlipidemia (Chronic) Hypertension (Chronic) Medical History Abdominal pain 03/17/02 neg h. 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) Right facial numbness (05/26/16) OCCASIONALLY Shoulder pain right; with bursitis S/P surgery Skin lesion (04/19/17) Unspecified sprain of left wrist, subsequent encounter (01/12/16) Vivid dream (02/08/17) Weakness of right side of body (05/26/16) Surgical History Colonoscopy - MAC (~02/2011) EGD - MAC (~02/2011) EXTRACTION, TEETH (~12/1989) H/O esophagogastroduodenoscopy 02/16/11 H/O tooth extraction 04/18/89 H/O tooth extraction 04/18/89 History of esophagogastroduodenoscopy History of shoulder surgery History of tooth extraction S/P wrist surgery 04/18/09 SHOULDER SURGERY (~04/2009) Status post wrist surgery WRIST SURGERY (~04/2009) Family History Mother , AGE 56 Essential hypertension Leukemia Stomach cancer Father , AGE 85 Essential hypertension Depression Stroke Alcohol abuse A-fib Heart disease Sister Essential hypertension Heart disease Hyperlipidemia Sister Essential hypertension Cancer skin Sister No problems noted. Maternal Grandfather , AGE 68 Essential hypertension Heart disease Paternal Grandfather , AGE 83 Essential hypertension Stomach cancer Colon cancer Maternal Grandmother , AGE 89 Asthma Paternal Grandmother , AGE 84 Stroke Asthma Social History Smoking/Tobacco Use Status: Former Tobacco Use tobacco type: cigarettes Quit Date: 04/18/81 Tobacco: How many years used: 35 Smokeless tobacco user: chewing tobacco Second Hand Exposure: Yes Smoking risk assessment performed?: Yes Alcohol Intake: never Drug use: Never Substance use type: does not use Household members: spouse Housing: house Communication Needs: Hard of Hearing, Corrective Lenses and Cannot Read Do you need help understanding health information?: Often current occupation: [employer] Pets and animals: Yes Pets and animals: cat(s) Sexually active: No Do you think of yourself as: straight/heterosexual Current gender identity: male What is your relationship status?: How often do you talk on the phone with friends or family?: three or more times per week How often do you get together with friends or relatives?: twice per week How often do you attend religion or confucianist services?: 1-3 times per year Do you belong to any clubs or organized social groups?: no Panel score (0-1 are the most socially isolated patients): 2 What type of physical activity do you participate in: walking and aerobic Duration: 30-45 minutes/day Frequency: 5-6 times per week Tatianna/Buddhist: Mandaeism Special tatianna needs: No Seatbelt use: always Helmet use: No Drive intox or ride w/intox party bus driver: No Do you feel safe at home: Yes Do you feel safe in your relationship?: Yes Victim of physical abuse: No Victim of emotional abuse: No Victim of sexual abuse: No Would you like helpful sources: No
--- NOTE | 2021-12-31 14:30 | CHAPLAIN ---
Arie was resting in bed when I visited. His was with him and they were waiting for his discharged papers.
== END 2021-12-31 14:54 | disposition home or self-care (01) ==
LOC: ER 18:17 → MS 18:59
PROVIDERS: Student in an Organized Health Care Education/Training Program; Admitting Provider Surgery; Emergency Provider Emergency Medicine; PCP Family Medicine; Visit Provider Surgery
DX: R07.89 Other chest pain (principal); R10.30 Lower abdominal pain, unspecified; R93.3 Abnormal findings on diagnostic imaging of other parts of digestive tract; Z79.899 Other long term (current) drug therapy; Z79.82 Long term (current) use of aspirin; Z79.84 Long term (current) use of oral hypoglycemic drugs; Z86.73 Personal history of transient ischemic attack (TIA), and cerebral infarction without residual deficits; F10.10 Alcohol abuse, uncomplicated; I10 Essential (primary) hypertension; E78.00 Pure hypercholesterolemia, unspecified; R20.0 Anesthesia of skin; Z86.16 Personal history of COVID-19; G43.009 Migraine without aura, not intractable, without status migrainosus; G47.30 Sleep apnea, unspecified; M54.42 Lumbago with sciatica, left side; F70 Mild intellectual disabilities; E78.5 Hyperlipidemia, unspecified; K21.9 Gastro-esophageal reflux disease without esophagitis; M10.9 Gout, unspecified; E11.9 Type 2 diabetes mellitus without complications; M48.10 Ankylosing hyperostosis [Forestier], site unspecified; I65.21 Occlusion and stenosis of right carotid artery; F41.9 Anxiety disorder, unspecified
CPT/HCPCS: 36415; 74177; 80048; 80053; 83690; 87635; 93005; 96361; 96374; 99217; 99219; 99285; 71260; 81003; 84484; 85025; 93010; 93306; G0378; J3490

== ENCOUNTER 2022-02-01 04:01 | Outpatient (CLI) | payer MEDICARE, MEDICAID, SELFPAY ==
--- NOTE | 2022-02-01 13:00 | NS.NUTBLAN_ITS ---
Ozzie and his attend diabetes self management education 5'8 268 lbs BMI: 40 DM meds: 25 mg jardiance, januvia, 10 mg glipizide A1C (08/27/21): 5.9% Diet Recall: jiménez sandwich (WW) and magaly thomasut for B, Lunch: sandwich and chips, D: 3 hot dogs and baked beans Exercise: none Ozzie is here for help with weight loss. Currently with excellent glycemic control. Current intake high in simple carbs, low in non starchy vegetables and lean protein. Provided meal plans and education on lower carb meal plan with emphasizes lean protein, non starchy vegetables and healthy fats. Encouraged daily walking of 20 minutes. Ozzie and are both motivated to lose at least 10% of their body weight. Follow up scheduled for 03/01/22 at 1 pm.
== END 2022-02-01 04:02 | disposition home or self-care (01) ==
LOC: DS 04:01
PROVIDERS: PCP Family Medicine; Visit Provider Dietitian, Registered
DX: E11.9 Type 2 diabetes mellitus without complications (principal); Z79.84 Long term (current) use of oral hypoglycemic drugs; Z71.3 Dietary counseling and surveillance; E66.8 Other obesity
CPT/HCPCS: 97802

== ENCOUNTER 2022-03-08 03:09 | Outpatient (CLI) | payer MEDICARE, MEDICAID, SELFPAY ==
--- NOTE | 2022-03-08 14:00 | NS.NUTBLAN_ITS ---
Ozzie and his attend follow up for diabetes and weight management education. Wt: 264 lbs, 5'8 BMI: 39 down 4 lbs in last 6 weeks Meds: 10 mg glipizide, 25 mg jardiance. Ozzie's has been providing him with a meal plan with <100 g carbs, Meals are higher in lean protein and healthy fats and lower in carb rich foods. She has been journaling their meals and reports that she has also lost weight. He does not check BS, reports no symptoms of high or low BS. Ozzie remains active doing yard chores. Encouraged continued attention to meal plans and being active. Follow up planned for 05/17/22 at 1 pm. Goal weight loss at that time is 10 lbs.
== END 2022-03-08 03:10 | disposition home or self-care (01) ==
LOC: DS 03:09
PROVIDERS: PCP Family Medicine; Visit Provider Dietitian, Registered
DX: E11.9 Type 2 diabetes mellitus without complications (principal); Z79.84 Long term (current) use of oral hypoglycemic drugs; E66.8 Other obesity; Z71.3 Dietary counseling and surveillance; Z68.39 Body mass index [BMI] 39.0-39.9, adult
CPT/HCPCS: 97803

== ENCOUNTER → 2022-04-15 08:58 | Outpatient (BNVA) | payer MEDICARE, MEDICAID, SELFPAY | PROVIDERS: PCP Family Medicine; Referring Provider Family Medicine; Visit Provider Physical Therapy Assistant | DX: Z12.11 Encounter for screening for malignant neoplasm of colon (principal) ==

== ENCOUNTER 2022-04-26 09:08 | Day surgery (SDC) | payer MEDICARE, MEDICAID, SELFPAY ==
[2022-04-26 09:37] VITALS: BP 123/70; PULSE 78; RESP 16; TEMP 36.4; O2SAT 93
--- NOTE | 2022-04-26 09:59 | ANES.PREOP_ITS ---
General Info Date of Service Date Performed: 04/26/22 Height: 5 ft 8.11 in Weight: 118.6 kg Body Mass Index (BMI): 39.6 Surgical Procedure: Operation Date: 04/26/22 11:05 Proposed Procedure Side Surgeon p Kobe Lemus MD Meds Allergies and Home Medications Allergies Allergy/AdvReac Type Severity Reaction Status Date / Time Penicillins Allergy Unknown Verified 04/26/22 09:30 venom-honey bee Allergy Swelling Verified 04/26/22 09:30 metformin AdvReac Intermediate diarrhea Verified 04/26/22 09:30 diphenhydramine HCl AdvReac hyper Verified 04/26/22 09:30 Home Medication Medication Instructions Recorded multivitamin 1 tab PO DAILY 07/13/12 naproxen sodium 220 mg tablet 220 mg PO BID PRN 12/19/15 (Aleve) aspirin 81 mg tablet,delayed 81 mg PO DAILY 03/25/21 release blood-glucose meter #1 ea 05/14/21 allopurinol 300 mg tablet 300 mg PO DAILY #90 tabs 06/18/21 empagliflozin 25 mg tablet 25 mg PO QAM #90 tabs 06/18/21 (Jardiance) gabapentin 300 mg capsule 300 mg PO BID #180 caps 06/18/21 glipizide 10 mg tablet, extended See Rx Instructions .Route 06/18/21 release 24 hr .COMPLEX #90 tabs lancets 28 gauge (FreeStyle #100 ea 06/18/21 Lancets) lisinopril 10 mg tablet 10 mg PO DAILY #90 tabs 06/18/21 nystatin 100,000 unit/gram topical 1 - 2 applic topical BID PRN rash 06/18/21 cream #30 grams risperidone 1 mg tablet (Risperdal) 1 mg PO .AM #90 tabs 06/18/21 risperidone 2 mg tablet (Risperdal) 2 mg PO HS #90 tabs 06/18/21 sitagliptin phosphate 100 mg 100 mg PO DAILY #90 tabs 06/18/21 tablet (Januvia) venlafaxine 75 mg capsule,extended 75 mg PO DAILY #90 caps 06/18/21 release 24 hr vit B complex 100 combo no.2 100 1 tab PO DAILY 06/18/21 mg tablet,extended release (Balanced B-100 Complex) blood sugar diagnostic (Blood #100 ea 01/19/22 Glucose Test strips) bisacodyl 5 mg tablet,delayed 5 mg PO ONCE #4 tabs 04/15/22 release (Dulcolax (bisacodyl)) polyethylene glycol 3350 17 17 g PO ONCE #238 grams 04/15/22 gram/dose oral powder cyproheptadine 4 mg tablet 4 mg PO HS migraine headache 04/26/22 esomeprazole magnesium 20 mg 20 mg PO HS 04/26/22 capsule,delayed release (Nexium) rosuvastatin 10 mg tablet 10 mg PO HS 04/26/22 Current Visit Medications: Current Medications Generic Name Dose Route Start Last Admin Trade Name Freq PRN Reason Stop Dose Admin Ringer's Solution 1,000 mls @ 80 mls/hr 04/26/22 06:00 IV 05/18/22 23:59 INFUSION [facility] IV Miscellaneous Supplies 1 each 04/26/22 06:00 Iv Access IV 05/18/22 23:59 DIRECTED TYSON Sodium Chloride 0 ml 04/26/22 06:00 Normal Saline Flush 10 Ml Syr IV 05/18/22 23:59 PRN PRN Sodium Chloride 0 ml 04/26/22 06:00 Normal Saline 10 Ml Vial IJ 05/18/22 23:59 DIRECTED PRN Sterile Water 0 ml 04/26/22 06:00 Water,Injection,Sterile 10 Ml Vial IJ 05/18/22 23:59 DIRECTED PRN PFSH Active Problems Active Problems: Problem Status Onset Code Abdominal pain R10.9 Obesity E66.9 Left leg numbness R20.0 Right leg numbness R20.0 COVID-19 U07.1 Anterior epistaxis R04.0 Encounter for screening colonoscopy Z12.11 Facial pain R51.9 Bilateral impacted cerumen H61.23 Fall W19.XXXA Migraine headache without aura G43.009 Abnormal stress test R94.39 LFT elevation R79.89 Chest pressure R07.89 Sleep apnea G47.30 Encounter for annual physical exam Z00.00 Tachycardia R00.0 Sinus pain J34.89 Conductive hearing loss, external ear H90.2 Carpal tunnel syndrome G56.00 Foot pain M79.673 Ventricular arrhythmia 12/16/06 I49.9 Vivid dream 02/08/17 R68.89 Sensorineural hearing loss (SNHL), bilateral H90.3 Chronic left-sided low back pain with left-sided sciatica M54.42, G89.29 Unspecified intellectual disabilities F79 Syrinx of spinal cord 06/13/17 G95.0 Reduced libido 04/01/11 R68.82 Peptic reflux disease K21.9 Multiple somatic complaints R68.89 Hyperlipidemia 09/19/12 E78.5 Gout 06/08/17 M10.9 Essential hypertension 05/18/13 I10 Diabetes mellitus 09/19/12 E11.9 Depressive disorder F32.9 DISH (diffuse idiopathic skeletal hyperostosis) 03/09/17 M48.10 Carotid stenosis, right 07/01/16 I65.21 Anxiety F41.9 Alcohol intake above recommended sensible limits Z72.89 Hyperlipidemia E78.5 Hypertension I10 Medical History Medical History Abdominal pain 03/17/02 neg h. 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) Right facial numbness (05/26/16) OCCASIONALLY Shoulder pain right; with bursitis S/P surgery Skin lesion (04/19/17) Unspecified sprain of left wrist, subsequent encounter (01/12/16) Vivid dream (02/08/17) Weakness of right side of body (05/26/16) Surgical History Surgical History Colonoscopy - MAC (~02/2011) EGD - MAC (~02/2011) EXTRACTION, TEETH (~12/1989) H/O esophagogastroduodenoscopy 02/16/11 H/O tooth extraction 04/18/89 H/O tooth extraction 04/18/89 History of esophagogastroduodenoscopy History of shoulder surgery History of tooth extraction S/P wrist surgery 04/18/09 SHOULDER SURGERY (~04/2009) Status post wrist surgery WRIST SURGERY (~04/2009) Tobacco Smoking/Tobacco Use Status: Former Tobacco Use Smokeless tobacco user: chewing tobacco Passive smoking exposure: Yes Second hand exposure: Yes Alcohol Alcohol Intake: never Substance Use Substance use: Never Substance use type: does not use Vital Signs and Lab Results Vital Signs Most Recent Vital Signs in EMR: Most Recent Vital Signs Temp Pulse Resp BP Pulse Ox 36.4 C L 78 16 123/70 93 04/26/22 09:37 04/26/22 09:37 04/26/22 09:37 04/26/22 09:37 04/26/22 09:37 Lab Results Blood Type / Crossmatch: No Data to Display Complete Blood Count: No Data to Display Complete Metabolic Panel: No Data to Display Liver Function Panel: No Data to Display Coagulation Panel: 2 No Data to Display Cardiac Panel: No Data to Display Arterial Blood Gas: No Data to Display Venous Blood Gas: No Data to Display Pancreas Panel: No Data to Display Thyroid Panel: No Data to Display Infectious Disease: No Data to Display Blood Cultures: No Data to Display Toxicology Panel: No Data to Display Imaging and Studies Imaging and Studies Study information below may be from another EMR and interpreted by another provider. Please see original notes in EMR for more complete details. EKG Summary: Conclusion Sinus rhythm...normal P axis, V-rate 60- 99 Physician: Rate 78, sinus rhythm, no significant ST elevations or depressions. No evidence of STEMI. unchanged Stress Test Summary: 05/08 Stress ECG Conclusion 1. Resting electrocardiogram was normal 2. Patient exercised on the Eladio protocol. He completed a workload of 7 METS, limited by shortness of breath and leg pain. 3. Normal heart rate and blood pressure response to exercise. The patient achieved 96% of predicted heart rate for age 4. Electrocardiographically there was ST depression noted in inferior and lateral leads consistent with myocardial ischemia 5. There were no significant dysrhythmias 6. Suggest repeat with imaging if clinically indicated Kamara Treadmill Score is 4.3 which is Moderate risk. Carotid Artery Summary:: Bilateral duplex carotid ultrasound was performed. There is bilateral antegrade vertebral flow. There is little if any visible atheromatous plaque in the carotid circulation. Flow velocities in common internal and external carotid arteries are within normal limits bilaterally. IMPRESSION: No evidence of a hemodynamically significant carotid stenosis. 05/27/16 Anesthesia Assessment and Plan Anesthesia History Personal History: No History of Anesthesia Complications Family History: No Family History of Anesthesia Complications Exercise Tolerance Exercise Tolerance: Metabolic Equivalents>4 Pertinent Negatives Pertinent Negatives: No Symptoms of GERD Cardiac & Pulmonary Exam Cardiac Exam: Normal S1/S2 Heart Sounds Pulmonary Exam: Clear Bilateral Breath Sounds Implantable Cardiac Device Does patient have a Pacemaker or an ICD?: No Airway Exam Known Difficult Airway: No Mallampati Class: 2 Mouth Opening: Normal (> 3cm) Thyromental Distance: Greater than 3 cm Facial Hair: Full [place] Neck Range of Motion: Full ROM Neck Circumference: Thick Teeth Condition: Normal Dentition ASA Classification ASA Score: ASA 3 Emergency Case?: No NPO Status NPO Status: NPO Clears >2 hours, Solids >8 hours Anesthesia Plan Resuscitation Status: Full Code Anesthesia Technique: General Anesthesia Airway Planned: Natural Airway Monitors Used: Standard Monitors
[2022-04-26] MEDS: Lactated Ringers 1,000 ML 80 ML IV (10:00)
[2022-04-26 10:06] VITALS: BMI 39.6
--- NOTE | 2022-04-26 10:15 | COLE_ITS ---
Date of service: 04/26/22 Time of Service: 10:47 Colonoscopy Report Procedure Description: Procedures performed: 1. Colonoscopy 2. Cold forceps polypectomy x2 Preoperative diagnosis: Surveillance colonoscopy Postoperative diagnosis: Colon polyps Surgeon: Kvng Lemus Anesthesia: Dejon Indication for procedure: 56-year-old man does not have any symptoms, his prior colonoscopy was normal (10+ years ago) but he does have a family history of colon cancer: An aunt had colon cancer and an uncle had colon cancer. Findings: Normal terminal ileum. 2 small 3-5 mm sessile polyps were removed with hot snare technique from the transverse colon and sent together. No other findings. No diverticular disease and no hemorrhoid disease. Surveillance/follow-up recommendations: 3-5 years. Colorectal Society recommendations with 2 second-degree relatives is every 5 years. Villous or sessile serrated histology would warrant in 3 years. Complications: None Blood loss: Minimal Prep: Excellent Procedure in detail: Written consent was obtained from the patient who was in agreement with the risks, benefits and indications of the procedure.? We went to the endoscopy suite and laid the patient in left lateral decubitus position.? Anesthesia was administered which was tolerated well.? A timeout was performed and when we are all in agreement we began the procedure. Digital rectal exam and visual examination was performed and within normal limits.? A well?lubricated colonoscope was advanced without difficulty all the way to the cecum identified by the ileocecal valve, and triangular folds and appendiceal orifice.? Terminal ileum was normal.? It was then slowly wi thdrawn.?? Retroflexion was performed in the rectum.? The findings/interventions are noted above. The scope was then removed and the patient tolerated the procedure well and was then taken back to the PACU in hemodynamically stable condition.
--- NOTE | 2022-04-26 10:40 | BOWEL_PTH ---
PATIENT: Ozzie Chaudhary LOC: [facility] U#:[id number] AGE/SX: 56/M ROOM: RE04/26/[address]: Sarwat Lemus : 1965 BED: DIS: 04/26/2022 SPEC #: [id number] RECD: 04/26/22 12:43 STATUS: XAVIER REKatya #: [id number] WEST: 04/26/22 10:[address]: Sarwat Lemus DEPT: Surgical Specimen RECD BY: Valery Hopkins ENTERED: 04/26/22 12:43 SP TYPE: Bowel OTHR DR: Kanwal Griffin MD, DC Tissues: 1 - BIOPSY BOWEL Procedures: GROSS AND MICRO LEVEL 4 Comments: [id number]
[2022-04-26 10:59] VITALS: BP 113/77; PULSE 79; RESP 14; TEMP 36.6; O2SAT 92
[2022-04-26 11:15] VITALS: BP 125/84; PULSE 62; RESP 15; TEMP 36.7; O2SAT 94
--- NOTE | 2022-04-26 11:22 | W.ANESPOSTOP ---
Postoperative Evaluation Date, Time and Location Date Performed: 04/26/22 Time Performed: 10:55 Patient Location: Day Surgery Unit Vital Signs Most Recent Imported Vital Signs: Most Recent Vital Signs Temp Pulse Resp BP Pulse Ox 36.6 C 79 14 113/77 92 04/26/22 10:59 04/26/22 10:59 04/26/22 10:59 04/26/22 10:59 04/26/22 10:59 Pain Score Most Recent Pain Score: Most Recent Pain Score Pain Level 0 04/26/22 10:59 Assessment Mental Status: Awake (Alert & Oriented to Patient Baseline) Airway and Respiratory Function: Patent airway with normal (patient baseline) respiratory exam Cardiovascular Function: Hemodynamically Stable Hydration Status: Adequately Hydrated Nausea & Vomiting: No Nausea or Vomiting Pain: Pt. Denies Any Pain Peripheral Nerve Block: Patient did not receive a nerve block
== END 2022-04-26 11:43 | disposition home or self-care (01) ==
PROVIDERS: PCP Family Medicine; Visit Provider Student in an Organized Health Care Education/Training Program
PROC: 0DJD8ZZ Inspection of Lower Intestinal Tract, Via Natural or Artificial Opening Endoscopic (ICD-10-PCS; CPT 45378; principal; 2022-04-26 11:00)
DX: Z12.11 Encounter for screening for malignant neoplasm of colon (principal); K63.5 Polyp of colon; Z80.0 Family history of malignant neoplasm of digestive organs
CPT/HCPCS: 45385; 88305

== ENCOUNTER 2022-05-17 03:07 | Outpatient (CLI) | payer MEDICARE, MEDICAID, SELFPAY ==
--- NOTE | 2022-05-17 13:00 | NS.NUTBLAN_ITS ---
Ozzie and his return for diabetes self management education and weight management. Wt: 258 lbs down 6 lbs in last 8 weeks, down 10 lbs in last 90 days. Meds: 10 mg glipizide, 26 mg jardiance Does not check his blood sugars very often, but reports no numbers > 240 mg/dl. Encouraged him to check a couple times per week either fasting BS or post prandial BS. Overall, Ozzie is eating much less potato, pasta and bread and a lot more vegetables and meats. Is eating cottage cheese when needing a snack and continues to be active around the house. He is motivated to continue to lose weight and his goal weight is around 240 lbs. Follow up 07/12/22 at 1 pm.
== END 2022-05-17 03:08 | disposition home or self-care (01) ==
PROVIDERS: PCP Family Medicine; Visit Provider Dietitian, Registered
DX: E11.9 Type 2 diabetes mellitus without complications (principal); Z71.3 Dietary counseling and surveillance; E66.8 Other obesity; Z79.84 Long term (current) use of oral hypoglycemic drugs
CPT/HCPCS: 97802

== ENCOUNTER → 2022-06-09 12:27 | Outpatient (BNVA) | payer MEDICARE, MEDICAID, SELFPAY | PROVIDERS: PCP Family Medicine; Visit Provider Nurse Practitioner Adult Health | DX: G43.009 Migraine without aura, not intractable, without status migrainosus (principal) | CPT/HCPCS: 99212; 99213 ==

== ENCOUNTER 2022-11-06 11:50 | Outpatient (REF) | payer MEDICARE, MEDICAID, SELFPAY | END 2022-11-06 11:51 | disposition home or self-care (01) | LOC: LBN 11:50 | PROVIDERS: PCP Family Medicine; Visit Provider Nurse Practitioner Family | DX: L98.8 Other specified disorders of the skin and subcutaneous tissue (principal); N48.89 Other specified disorders of penis | CPT/HCPCS: 87070; 87205 ==

== ENCOUNTER → 2022-12-08 12:27 | Outpatient (BNVA) | payer MEDICARE, MEDICAID, SELFPAY | PROVIDERS: PCP Family Medicine; Visit Provider Nurse Practitioner Adult Health | DX: G43.009 Migraine without aura, not intractable, without status migrainosus (principal); I10 Essential (primary) hypertension; E11.9 Type 2 diabetes mellitus without complications | CPT/HCPCS: 99213 ==

== ENCOUNTER 2022-12-14 12:53 | Outpatient (REF) | payer MEDICARE, MEDICAID, SELFPAY ==
[2022-12-14 14:38] LABS: COMMENT (LAB VIEW ONLY) 44.89 mg/dL; Microalb ug/mg Crea 15.6 ug/mg Cr
== END 2022-12-14 12:54 | disposition home or self-care (01) ==
LOC: LBN 12:53
PROVIDERS: PCP Family Medicine; Visit Provider Family Medicine
DX: E11.9 Type 2 diabetes mellitus without complications (principal)
CPT/HCPCS: 82043; 82570

== ENCOUNTER → 2023-03-02 13:41 | Outpatient (CLI) | payer MEDICARE, MEDICAID, SELFPAY ==
--- NOTE | 2023-03-02 14:10 | DI.RAD_ITS ---
Exam(s) XR LUMBAR SPINE COMPLETE EXAM: XR LUMBAR SPINE COMPLETE CLINICAL HISTORY: low back pain, m54.50. TECHNIQUE: 2D digital imaging was performed. Five views. COMPARISON: MR MRI - LUMBAR SPINE WO CONTRAST from 06/16/[address] CHEST/ABD/PEL W from 12/30/2021 FINDINGS: BONES: No fracture or destructive lesion. Vertebral body heights are maintained. Small endplate oste ophytes. Facet hypertrophy identified L4-5 and L5-S1.. DISKS: Intervertebral disc spaces are maintained. ALIGNMENT: Lumbar spinal alignment is within normal limits. SOFT TISSUE: Normal. IMPRESSION: Degenerative changes of the facet joints of the lower lumbar spine. DATA REPOSITORY: RADIATION DOSE DELIVERED:
== END ==
PROVIDERS: PCP Family Medicine; Visit Provider Family Medicine
DX: M46.96 Unspecified inflammatory spondylopathy, lumbar region
CPT/HCPCS: 72110

== ENCOUNTER → 2023-06-07 13:23 | Outpatient (BNVA) | payer MEDICARE, MEDICAID, SELFPAY | PROVIDERS: PCP Family Medicine; Visit Provider Nurse Practitioner Adult Health | DX: G43.009 Migraine without aura, not intractable, without status migrainosus (principal) | CPT/HCPCS: 99214 ==

== ENCOUNTER 2023-07-25 11:03 | Outpatient (REF) | payer MEDICARE, MEDICAID, SELFPAY ==
[2023-07-25 15:17] LABS: HCT 51.5 % (40.0-50.0); HGB 17.4 g/dL (13.5-17.5); MCH 29.7 pg (27.0-33.0); MCHC 33.8 % (32.0-36.0); MCV 88 fL (80-95); MPV 11.3 fL (8.0-11.0); Platelet Count 216 10^3/uL (130-400); RBC 5.86 10^6/uL (4.36-5.78); RDW 13.1 % (11.8-14.1); RDW-SD 42.3 fL; WBC 6.55 10^3/uL (4.4-10.8)
[2023-07-25 16:06] LABS: Hemoglobin A1C 6.9 % (<5.7)
[2023-07-25 16:14] LABS: ALT 53 U/L (16-63); AST 27 U/L (15-37); Albumin 4.2 g/dL (3.4-5.0); Alkaline Phosphatase 88 U/L (46-116); Anion Gap 14.6 mmol/L (3-11); BUN 16 mg/dL (7-18); Bilirubin, Total 0.5 mg/dL (0.2-1.0); CO2 23.4 mmol/L (21.0-32.0); Calcium 9.1 mg/dL (8.5-10.1); Calculated LDL 60 mg/dL (<100); Chloride 104 mmol/L (98-107); Cholesterol 164 mg/dL (<200); Estimated GFR 86.16 (mL/min/1.73m2); Glucose 230 mg/dL (74-106); HDL Cholesterol 52 mg/dL (40-60); Potassium 3.9 mmol/L (3.5-5.1); Sodium 142 mmol/L (136-145); Total Protein 7.4 g/dL (6.4-8.2); Triglyceride 261 mg/dL (<150)
== END 2023-07-25 11:04 | disposition home or self-care (01) ==
LOC: NCHCN 11:03
PROVIDERS: PCP Physician Assistant; Visit Provider Physician Assistant
DX: E11.9 Type 2 diabetes mellitus without complications (principal); I10 Essential (primary) hypertension
CPT/HCPCS: 80053; 80061; 85027; 83036

== ENCOUNTER 2023-07-27 11:49 | Outpatient (CLI) | payer MEDICARE, MEDICAID, SELFPAY ==
--- NOTE | 2023-07-27 08:00 | DI.RAD_ITS ---
Exam(s) XR SHOULDER RT COMPLETE 2+V EXAM: XR SHOULDER RT COMPLETE 2+V CLINICAL HISTORY: RIGHT SHOULDER PAIN. TECHNIQUE: 2D digital imaging was performed. COMPARISON: No exams were available for comparison FINDINGS: Two views. No evidence of fracture or dislocation or abnormal soft tissue calcifications. There is a round luce ncy in the proximal diaphysis of the of the humerus consistent with a probable biceps tenodesis site. There are mild degenerative changes in the glenohumeral joint. Also mild degenerative changes in t he AC joint. Bone density normal. No osseous lesions. IMPRESSION: Biceps tenodesis site noted. Mild degenerative changes in the glenohumeral joint. No diminution of the subacromial space. DATA REPOSITORY: RADIATION DOSE DELIVERED:
== END 2023-07-27 11:50 | disposition home or self-care (01) ==
LOC: DIORS 11:49
PROVIDERS: PCP Physician Assistant; Referring Provider Physician Assistant; Visit Provider Student in an Organized Health Care Education/Training Program
DX: M19.011 Primary osteoarthritis, right shoulder; M75.101 Unspecified rotator cuff tear or rupture of right shoulder, not specified as traumatic
CPT/HCPCS: 99213; 73030

== ENCOUNTER → 2023-08-02 03:11 | Outpatient (CLI) | payer MEDICARE, MEDICAID, SELFPAY ==
--- NOTE | 2023-08-02 | DI.US_ITS ---
Exam(s) US CAROTID EXAM: US CAROTID CLINICAL HISTORY: DIZZINESS AND GIDDINESS R42 KNOWN CAROTID STENOSIS. TECHNIQUE: Ultrasound carotids performed using grayscale, color-flow, and spectral Doppler imaging. COMPARISON: US US CAROTID from 04/17/2019 FINDINGS: RIGHT CAROTID ARTERY: Plaque: Minimal. Velocity elevation: None. LEFT CAROTID ARTERY: Plaque: Minimal. Velocity elevation: None. VERTEBRAL ARTERIES: Antegrade flow. Measurements: R Bulb: 66.5cm/s PS / 9.6cm/s ED R CCA: 86.8cm/s PS / 18.2cm/s ED R ECA: 150.1cm/s PS / 19.4cm/s ED R ICA Prox: 103.2cm/s PS / 19.8cm/s ED R ICA Mid: 115.9cm/s PS / 21.6cm/s ED R ICA Distal: 40.3cm/s PS /14.6cm/s ED R Vert: 44cm/s PS / 15.8cm/s ED R SVR: 1.3 R DVR: 1.2 L Bulb: 88.1cm/s PS / 19.5cm/s ED L CCA: PS / 21.7cm/s ED L ECA: 126.1cm/s PS / 14.2cm/s ED L ICA Prox: 67.4cm/s PS / 10.8cm/s ED L ICA Mid: 85.1cm/s PS / 21.6cm/s ED L ICA Distal: 66.9cm/s PS / 18cm/s ED L Vert: 87.8cm/s PS / 9.8cm/s ED L SVR: 0.8 L DVR: 0.9 IMPRESSION: No evidence for hemodynamically significant internal carotid stenosis. Vertebral artery velocities a re within normal limits. Mildly elevated systolic velocity in the external carotid arteries, right greater than left. No sign ificant stenosis visually. Criteria for Carotid Stenosis: Normal: ICA PSV <125 cm/s no plaque or intimal thickening is visible. <50% stenosis: ICA PSV <125 cm/s and plaque or intimal thickening is visible. 50-69% stenosis: ICA PSV is 125-250 cm/s and plaque is visible. >70% stenosis to near occlusion: ICA PSV >250 cm/s with visible plaque and luminal narrowing. DATA REPOSITORY:
== END ==
PROVIDERS: PCP Physician Assistant; Visit Provider Physician Assistant
DX: R42 Dizziness and giddiness (principal)
CPT/HCPCS: 93880

== ENCOUNTER → 2023-08-10 04:33 | Outpatient (CLI) | payer MEDICARE, MEDICAID, SELFPAY ==
--- NOTE | 2023-08-10 08:30 | DI.MRI_ITS ---
Exam(s) MR UPPER JOINT RT WO EXAM: MR UPPER JOINT RT WO CLINICAL HISTORY: R SHOULDER PAIN,rt rotator cuff tear,m75.101. TECHNIQUE: Multiplanar multisequence MRI was performed. COMPARISON: MR MRI R UPPER JOINT WO CONT from 03/11/2010 CR XR SHOULDER RT COMPLETE 2+V from 07/27/2023 FINDINGS: BONES: There is no fracture or contusion pattern. Orthopedic screws are seen in the humeral head. JOINTS: Mild degenerative changes are seen at the acromioclavicular joint. The glenohumeral joint is normal. TENDONS: Supraspinatus: There is a focus of hyperintense signal seen in the anterior aspect of the supraspinat us tendon near its insertion site suspicious for partial small bursal surface tear. Infraspinatus: Unremarkable. Subscapularis: Unremarkable. Teres [place]: Unremarkable. Biceps and [place]: The long head of the biceps is not seen within the bicipital groove. The findings on the x-ray suggest of prior biceps tenodesis. MUSCLES: Unremarkable. GLENOID LABRUM: Unremarkable on this noncontrast examination. SOFT TISSUES: Unremarkable. LIGAMENTS: Unremarkable. OTHER: Subacromial and subdeltoid bursae are unremarkable. IMPRESSION: 1. Hyperintense signal seen on the at the anterior aspect of the supraspinatus tendon suspicious for small partial bursal surface tear. 2. Findings suggestive of a prior biceps tenodesis. DATA REPOSITORY:
== END ==
PROVIDERS: PCP Physician Assistant; Visit Provider Student in an Organized Health Care Education/Training Program
DX: M75.111 Incomplete rotator cuff tear or rupture of right shoulder, not specified as traumatic (principal)
CPT/HCPCS: 73221

== ENCOUNTER → 2023-08-24 10:50 | Outpatient (BNVA) | payer MEDICARE, MEDICAID, SELFPAY | PROVIDERS: PCP Physician Assistant; Referring Provider Physician Assistant; Visit Provider Student in an Organized Health Care Education/Training Program | DX: M75.101 Unspecified rotator cuff tear or rupture of right shoulder, not specified as traumatic (principal) | CPT/HCPCS: 99213 ==

== ENCOUNTER → 2023-10-13 13:26 | Outpatient (BNVA) | payer MEDICARE, MEDICAID, SELFPAY | PROVIDERS: PCP Physician Assistant; Referring Provider Physician Assistant; Visit Provider Nurse Practitioner Adult Health | DX: R51.9 Headache, unspecified (principal); R44.3 Hallucinations, unspecified | CPT/HCPCS: 99214 ==

== ENCOUNTER 2023-10-28 02:13 | Outpatient (CLI) | payer MEDICARE, MEDICAID, SELFPAY ==
[2023-10-28] MEDS: Inhaler, Assist Device 1 EACH MC (14:24)
[2023-10-28] MEDS: Levalbuterol HFA 15 GM INH 4 PUFF IH (14:24)
--- NOTE | 2023-11-03 13:21 | W.PFT ---
Date of service: 11/03/23 Time of Service: 10:10 Pulmonary Function Test Result Requesting Provider Alvaro Lee Indications: JASMINE Interpretation Spirometry: Normal Lung Volumes: Normal Diffusion Capacity: Normal Impression Normal spirometry, lung volumes and normal diffusion. Flow volume curve is normal. Clinical Correlation therefore is recommended.
--- NOTE | 2023-11-03 13:26 | W.PFT ---
Date of service: 10/28/23 Time of Service: 10:10 Pulmonary Function Test Result Requesting Provider P Clinical Correlation therefore is recommended.
== END 2023-10-28 02:14 | disposition home or self-care (01) ==
LOC: RT 02:14
PROVIDERS: PCP Physician Assistant; Visit Provider Physician Assistant
DX: R79.81 Abnormal blood-gas level (principal); J45.909 Unspecified asthma, uncomplicated; R06.09 Other forms of dyspnea
CPT/HCPCS: 00123; 94060; 94726; 94729

== ENCOUNTER → 2023-11-09 01:12 | Outpatient (CLI) | payer MEDICARE, MEDICAID, SELFPAY ==
--- NOTE | 2023-11-09 15:51 | DI.MRI_ITS ---
Exam(s) MR BRAIN WO EXAM: MR BRAIN WO CLINICAL HISTORY: worsening headaches, R51.9; hallucinations, R44.3 TECHNIQUE: Multiplanar multisequence MRI of the brain was performed. COMPARISON: MR MRI - BRAIN WO CONTRAST from 05/27/2016 FINDINGS: VENTRICLES AND EXTRA AXIAL SPACES: Normal in size and morphology for the patient's age. MIDLINE SHIFT: None. CEREBRAL PARENCHYMA: No focus of restricted diffusion to suggest acute infarct. No space-occupying le jefferson identified. There are multiple areas of hyperintense signal seen in the white matter on the FLAI R and T2 weighted images most consistent with chronic microvascular ischemic disease. HEMORRHAGE: There is a round hypointense focus on the gradient images in the high posterior right par ietal lobe which may represent a benign lesion such as a vascular malformation or old injury. BRAINSTEM/CEREBELLUM: Normal. CALVARIUM: Normal. VISUALIZED PARANASAL SINUSES/MASTOIDS:Clear. COUNCIL OF CORDOVA: Normal flow void. PITUITARY GLAND: Unremarkable. OTHER FINDINGS: None. IMPRESSION: 1. No evidence of an intracranial mass or infarct. 2. Age-related cerebral atrophy and chronic microvascular ischemic disease. DATA REPOSITORY:
== END ==
PROVIDERS: PCP Physician Assistant; Visit Provider Nurse Practitioner Adult Health
DX: R51.9 Headache, unspecified (principal); R44.3 Hallucinations, unspecified; G31.89 Other specified degenerative diseases of nervous system; I67.82 Cerebral ischemia
CPT/HCPCS: 70551

== ENCOUNTER → 2023-11-09 01:17 | Outpatient (CLI) | payer MEDICARE, MEDICAID, SELFPAY ==
--- NOTE | 2023-11-09 10:04 | DI.RAD_ITS ---
Exam(s) XR CHEST 2V PA LATERAL EXAM: XR CHEST 2V PA LATERAL CLINICAL HISTORY: DYSPNEA, R06.00 TECHNIQUE: 2D digital imaging was performed of the chest. Three images were obtained. PA and later al views were obtained. COMPARISON: CR CHEST 2 VIEWS PA,LAT from 03/09/2017 CR XR sternum from 12/28/2017 FINDINGS: MEDIASTINUM: Normal. HEART: Normal. PULMONARY VASCULATURE: Normal. LUNGS: No focal consolidating infiltrates. There is again seen linear scarring in the right lower lo be. PLEURAL SPACE: No pleural effusion or pneumothorax. BONE:Within normal limits for the patient's age. OTHER FINDINGS:Normal. IMPRESSION: No acute pulmonary findings. DATA REPOSITORY: RADIATION DOSE DELIVERED:
== END ==
PROVIDERS: PCP Physician Assistant; Visit Provider Physician Assistant
DX: R06.00 Dyspnea, unspecified (principal); I67.82 Cerebral ischemia; G31.89 Other specified degenerative diseases of nervous system
CPT/HCPCS: 71046

== ENCOUNTER → 2023-12-06 12:48 | Outpatient (BNVA) | payer MEDICARE, MEDICAID, SELFPAY | PROVIDERS: PCP Physician Assistant; Visit Provider Nurse Practitioner Adult Health | DX: G43.009 Migraine without aura, not intractable, without status migrainosus (principal) | CPT/HCPCS: 99213 ==

== ENCOUNTER 2024-03-01 17:50 | Outpatient (REF) | payer MEDICARE, MEDICAID, SELFPAY ==
[2024-03-01 19:35] LABS: COMMENT (LAB VIEW ONLY) 51.67 mg/dL; Microalb ug/mg Crea 35.6 ug/mg Cr
== END 2024-03-01 17:51 | disposition home or self-care (01) ==
LOC: NCHCN 17:50
PROVIDERS: PCP Physician Assistant; Visit Provider Physician Assistant
DX: E11.9 Type 2 diabetes mellitus without complications (principal)
CPT/HCPCS: 82043; 82570

== ENCOUNTER → 2024-03-06 13:21 | Outpatient (BNVA) | payer MEDICARE, MEDICAID, SELFPAY | PROVIDERS: PCP Physician Assistant; Referring Provider Physician Assistant; Visit Provider Nurse Practitioner Adult Health | DX: G43.009 Migraine without aura, not intractable, without status migrainosus (principal) | CPT/HCPCS: 99213 ==

== ENCOUNTER 2024-03-23 16:41 | Emergency (ER) | payer MEDICARE, MEDICAID, SELFPAY ==
[2024-03-23 16:46] VITALS: BP 113/69; PULSE 93; RESP 14; TEMP 36.6; O2SAT 93
[2024-03-23 17:31] LABS: Abs Immature Grans 0.05 10^3/uL (0.0-0.06); Absolute Lymphocyte Count 1.25 10^3/uL (1.2-3.4); Absolute Monocyte Count 1.05 10^3/uL (0.1-0.8); Absolute Neutrophil Count 8.69 10^3/uL (1.2-6.7); Basophils % 0.3 %; Eosinophils % 4.2 %; HCT 53.4 % (40.0-50.0); HGB 17.8 g/dL (13.5-17.5); Immature Grans % 0.4 %; Lymphocytes % 10.8 %; MCH 29.8 pg (27.0-33.0); MCHC 33.3 % (32.0-36.0); MCV 89 fL (80-95); MPV 10.6 fL (8.0-11.0); Monocytes % 9.1 %; Neutrophils % 75.2 %; Platelet Count 201 10^3/uL (130-400); RBC 5.97 10^6/uL (4.36-5.78); RDW 12.7 % (11.8-14.1); RDW-SD 41.6 fL; WBC 11.56 10^3/uL (4.4-10.8)
[2024-03-23 17:35] LABS: Absolute Basophil Count 0.03 10^3/uL (0.0-0.2); Absolute Eosinophil Count 0.49 10^3/uL (0.0-0.7)
[2024-03-23 17:44] VITALS: BP 128/74; PULSE 84; RESP 16; O2SAT 94
[2024-03-23 17:44] LABS: ALT 49 U/L (16-63); AST 29 U/L (15-37); Alkaline Phosphatase 100 U/L (46-116); Anion Gap 13.2 mmol/L (3-11); BUN 14 mg/dL (7-18); Bilirubin, Total 0.45 mg/dL (0.2-1.0); CO2 24.8 mmol/L (21.0-32.0); CREATININE 0.9 mg/dL (0.70-1.30); Calcium 8.7 mg/dL (8.5-10.1); Chloride 103 mmol/L (98-107); Estimated GFR 97.78 (mL/min/1.73m2); Glucose 116 mg/dL (74-106); Magnesium 2.2 mg/dL (1.8-2.4); Potassium 3.9 mmol/L (3.5-5.1); Sodium 141 mmol/L (136-145); Total Protein 7.5 g/dL (6.4-8.2)
--- NOTE | 2024-03-23 17:48 | ED.GENADUL_ITS ---
Discharge Plan Disposition Patient Disposition: Home Condition: Stable Discharge Details Clinical Impression: Diarrhea, Diabetes mellitus, Essential hypertension, Hyperlipidemia Primary Care Provider: Alvaro Lee ED Provider: Karmen Heaton Home Meds and New Rx's Prescriptions: No Action aspirin 81 mg tablet,delayed release (DR/EC) 81 mg PO DAILY cyproheptadine 4 mg tablet See Rx Instructions PO HS Qty: 180 3RF Rx Instructions: Take 4 mg at bedtime every night. Ok to take an additional 4 mg tab once daily as needed for headaches. venlafaxine 37.5 mg capsule,extended release 24hr 37.5 mg PO DAILY (DME) blood-glucose meter Misc See Dose Instructions .ROUTE .MEDSUPPLY Qty: 1 0RF Dose Instruction: As directed Rx Instructions: One touch verio E11.9 Once daily testing Balanced B-100 Complex 100 mg tablet extended release 1 tab PO DAILY Jardiance 25 mg tablet 25 mg PO QAM Qty: 90 5RF glipizide 10 mg tablet extended release 24hr See Rx Instructions .ROUTE .COMPLEX Qty: 90 5RF Dose Instruction: TAKE 1 TABLET BY MOUTH DAILY Rx Instructions: TAKE 1 TABLET BY MOUTH DAILY metoprolol succinate 25 mg tablet extended release 24 hr 25 mg PO DAILY risperidone [Risperdal] 2 mg tablet 2 mg PO BID multivitamin 1 EACH tablet 1 tab PO DAILY (DME) lancets [FreeStyle Lancets] 28 gauge misc See Rx Instructions .ROUTE .MEDSUPPLY Qty: 100 5RF Rx Instructions: daily testing E11.9. One Touch Verio Lancets rosuvastatin 10 mg tablet 10 mg PO HS Qty: 90 6RF nystatin 100,000 unit/gram cream 1 - 2 applic TP BID PRN (Reason: rash) Qty: 30 0RF (DME) Blood Glucose Test Strip See Rx Instructions .ROUTE .MEDSUPPLY Qty: 100 7RF Rx Instructions: One Touch Verio test strips E11.9. Test daily (DME) lancets [OneTouch Delica Lancets] 33 gauge misc See Rx Instructions .ROUTE DAILY Qty: 100 5RF Rx Instructions: E11.9 daily lisinopril 10 mg tablet 10 mg PO DAILY Qty: 90 4RF allopurinol 300 mg tablet 300 mg PO DAILY Qty: 90 4RF venlafaxine 75 mg capsule,extended release 24hr 75 mg PO DAILY Qty: 90 5RF gabapentin 300 mg capsule 300 mg PO BID Qty: 180 5RF esomeprazole magnesium [Nexium] 20 mg capsule,delayed release(DR/EC) 20 mg PO HS Qty: 90 3RF naproxen sodium [Aleve] 220 MG tablet 220 mg PO BID PRN Discharge Instructions Instructions: Dealing with Diarrhea from the Drugs You Take Additional Instructions: You were seen in the emergency department today for evaluation of diarrhea, which was likely due to your Ozempic. Additionally, you have any change in the color and character of your stool that is probably due to the Pepto-Bismol that you took. Your laboratory studies were all reassuring and did not show any sign of anemia, though certainly we considered bleeding ulcers as we discussed. I recommend that you stop the Pepto-Bismol, try an Imodium as needed for management of your diarrhea, and continue to monitor for changes such as bloody diarrhea, nausea or vomiting, abdominal pain. You need to be reevaluated by your primary care provider in the next few days to ensure that your symptoms are improving. Please continue to maintain good hydration and nutrition, and make you for allowing us to take care. HPI General Date/Time Provider Initiated Documentation: 03/23/24 16:50 . Limitations to Documentation: no limitations . Information obtained by: patient and old records reviewed . HPI Narrative: HPI: This is a 66-year-old male patient with a past medical history significant for sleep apnea, hyperlipidemia, diabetes, who was recently initiated on Ozempic, presenting for evaluation of diarrhea. The patient had been on Ozempic but was experiencing diarrhea and so stopped this medication 2 or 3 weeks ago. He states that since that time he has had diarrhea on Fridays, consistently for the last 3 to 5 days and arrival with normal stools in between. Today, he states he had watery diarrhea, estimates 20-30 movements per day, states that he tried Pepto-Bismol this afternoon, and shortly after developed black stools which caused him concern. He states that in the past he has had a history of bleeding ulcer in his stomach that needed to be intervened upon, he does take a PPI now for this condition. He states he has been able to eat and drink normally, has been attempting the brat diet, has not had nausea or vomiting. He denies abdominal pain. The patient reports that he has not had any travel outside the [facility], his family members have not been sick with similar symptoms, and he has not had any recent hospitalizations. He has not taken antibiotics recently. Exam: Gen: Awake and alert, in no apparent distress HEENT: Non-icteric sclera Neck: Supple Lungs: No apparent respiratory distress, normal respiratory effort. 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 No manisha blood noted, no hemorrhoids MSK: Moves 4 extremities without apparent limitation in ROM Skin: Visualized skin without rashes, cyanosis. Neuro: Normal Gait, no obvious focal deficits or facial asymmetry. Speaks in full, clear sentences. Psych: Appropriate for situation. MDM: This is a 58-year-old male patient presenting for evaluation of diarrhea. Differential includes but is not limited to medication effect, certainly considered infectious diarrheal illness. Patient is reassuringly without risk factors for C. difficile, parasitic diarrheas, and has not had any concerning exposures. I also considered Pepto-Bismol as the cause of the color change. Certainly considered upper GI bleed given patient's history of ulcers/PUD, have a lower concern for mesenteric ischemia, diverticulitis, diverticular bleed, hemorrhoidal bleed based on patient's history and physical examination. The patient is not taking any blood thinning medications making coagulopathy less likely. Guaiac testing likely to be inconclusive given the false positives which can be seen with Pepto-Bismol. For this reason, we will proceed with laboratory studies to include CBC, CMP, lipid screen, PT/INR. ED Course: I independently interpreted the laboratory studies, which show no significant leukocytosis, anemia, or thrombocytopenia. The chemistry panel is without evidence of electrolyte abnormality, kidney dysfunction, or liver injury. INR normal. On reassessment, the patient has not had any bowel movements over the course of this time [facility] emergency department. I do not see any indication for admission or for advanced imaging studies. I did recommend that the patient trial Imodium rather than Pepto-Bismol, and monitor for cessation of dark- colored stools. If the patient has weakness, shortness of breath, abdominal pain, vomiting, or any other concerning symptoms he should return to the emergency department for evaluation, and he recommended that he touch base with his primary care provider for reassessment as well as discuss potential outpatient endoscopy to evaluate his peptic ulcer disease burden. At this time, the patient has had a full medical evaluation and is safe for disc harge to home. They are hemodynamically stable, ambulatory, and tolerating PO. They are understanding of the follow-up plan and return precautions. They left our facility without incident. Karmen Heaton MD Related Data Home Medications ?Medication ?Instructions ?Recorded ?Confirmed multivitamin 1 tab PO DAILY 07/13/12 03/23/24 naproxen sodium 220 mg tablet 220 mg PO BID PRN 12/19/15 03/23/24 (Aleve) aspirin 81 mg tablet,delayed 81 mg PO DAILY 03/25/21 03/23/24 release blood-glucose meter #1 ea 05/14/21 03/23/24 lancets 28 gauge (FreeStyle #100 ea 06/18/21 03/23/24 Lancets) vit B complex 100 combo no.2 100 1 tab PO DAILY 06/18/21 03/23/24 mg tablet,extended release (Balanced B-100 Complex) empagliflozin 25 mg tablet 25 mg PO QAM #90 tabs 06/01/22 03/23/24 (Jardiance) glipizide 10 mg tablet, extended See Rx Instructions .Route 06/01/22 03/23/24 release 24 hr .COMPLEX #90 tabs rosuvastatin 10 mg tablet 10 mg PO HS #90 tabs 06/21/22 03/23/24 nystatin 100,000 unit/gram topical 1 - 2 applic topical BID PRN rash 07/05/22 03/23/24 cream #30 grams blood sugar diagnostic (Blood #100 ea 07/14/22 03/23/24 Glucose Test strips) lancets 33 gauge (OneTouch Delica #100 ea 09/14/22 03/23/24 Lancets) allopurinol 300 mg tablet 300 mg PO DAILY #90 tabs 06/06/23 03/23/24 esomeprazole magnesium 20 mg 20 mg PO HS #90 caps 06/06/23 03/23/24 capsule,delayed release (Nexium) gabapentin 300 mg capsule 300 mg PO BID #180 caps 02/19/24 12/06/24 lisinopril 10 mg tablet 10 mg PO DAILY #90 tabs 06/06/23 03/23/24 venlafaxine 75 mg capsule,extended 75 mg PO DAILY #90 caps 06/06/23 03/23/24 release 24 hr cyproheptadine 4 mg tablet See Rx Instructions PO HS migraine 06/07/23 03/23/24 headache #180 tabs metoprolol succinate 25 mg 25 mg PO DAILY 07/27/23 03/23/24 tablet,extended release 24 hr venlafaxine 37.5 mg 37.5 mg PO DAILY 10/13/23 03/23/24 capsule,extended release 24 hr risperidone 2 mg tablet (Risperdal) 2 mg PO BID 11/10/23 03/23/24 Previous Rx's ?Medication ?Instructions ?Recorded blood-glucose meter #1 ea 05/14/21 lancets 28 gauge (FreeStyle #100 ea 06/18/21 Lancets) empagliflozin 25 mg tablet 25 mg PO QAM #90 tabs 06/01/22 (Jardiance) glipizide 10 mg tablet, extended See Rx Instructions .Route 06/01/22 release 24 hr .COMPLEX #90 tabs rosuvastatin 10 mg tablet 10 mg PO HS #90 tabs 06/21/22 nystatin 100,000 unit/gram topical 1 - 2 applic topical BID PRN rash 07/05/22 cream #30 grams blood sugar diagnostic (Blood #100 ea 07/14/22 Glucose Test strips) lancets 33 gauge (OneTouch Delica #100 ea 09/14/22 Lancets) allopurinol 300 mg tablet 300 mg PO DAILY #90 tabs 06/06/23 esomeprazole magnesium 20 mg 20 mg PO HS #90 caps 06/06/23 capsule,delayed release (Nexium) gabapentin 300 mg capsule 300 mg PO BID #180 caps 06/06/23 lisinopril 10 mg tablet 10 mg PO DAILY #90 tabs 06/06/23 venlafaxine 75 mg capsule,extended 75 mg PO DAILY #90 caps 06/06/23 release 24 hr cyproheptadine 4 mg tablet See Rx Instructions PO HS migraine 06/07/23 headache #180 tabs Allergies Allergy/AdvReac Type Severity Reaction Status Date / Time Penicillins Allergy Unknown Other (See Verified 03/23/24 16:49 Comment) venom-honey bee Allergy Swelling Verified 03/23/24 16:49 metformin AdvReac Intermediate diarrhea Verified 03/23/24 16:49 diphenhydramine HCl AdvReac hyper Verified 03/23/24 16:49 General Stated Complaint: Nausea/Vomit/Diar SIS: 3 Course Vital Signs Vital signs: Vital Signs Temperature 36.6 C 03/23/24 16:46 Pulse 93 H 03/23/24 16:46 Respiratory Rate 14 03/23/24 16:46 Blood Pressure 113/69 03/23/24 16:46 Pulse Oximetry 93 03/23/24 16:46 Temperature 36.6 C 03/23/24 16:46 Temperature Source Oral 03/23/24 16:46 Pulse 84 03/23/24 17:44 Respiratory Rate 16 03/23/24 17:44 Respiratory Effort Normal, Non-Labored 03/23/24 17:03 Blood Pressure 128/74 03/23/24 17:44 Blood Pressure Position Sitting 03/23/24 16:46 Pulse Oximetry 94 03/23/24 17:44 Oxygen Delivery Method Room Air 03/23/24 17:44 Oxygen Flow Rate 0 03/23/24 17:44 Pain Level 0 03/23/24 16:46 Lab/Test Results Lab/Test Results: Laboratory Tests Range/Units 03/23/24 17:15 WBC (4.4-10.8) 10^3/uL 11.56 H RBC (4.36-5.78) 10^6/uL 5.97 H Hgb (13.5-17.5) g/dL 17.8 H Hct (40.0-50.0) % 53.4 H MCV (80-95) fL 89 MCH (27.0-33.0) pg 29.8 MCHC (32.0-36.0) % 33.3 RDW (11.8-14.1) % 12.7 Plt Count (130-400) 10^3/uL 201 MPV (8.0-11.0) fL 10.6 Immature Gran % % 0.4 Neutrophils % % 75.2 Lymphocytes % % 10.8 Monocytes % % 9.1 Eosinophils % % 4.2 Basophils % % 0.3 Nucleated RBC % (0.0-0.3) % 0.0 Absolute Neutrophils (1.2-6.7) 10^3/uL 8.69 H Absolute Lymphocytes (1.2-3.4) 10^3/uL 1.25 Absolute Monocytes (0.1-0.8) 10^3/uL 1.05 H Absolute Eosinophils (0.0-0.7) 10^3/uL 0.49 Absolute Basophils (0.0-0.2) 10^3/uL 0.03 Medical Decision Making Quality:SDOH Health Related Social Needs: No Data to Display PFSH All Active Problems (Updated 03/23/24 @ 18:53 by Karmen Heaton MD) Diarrhea (Acute) Hallucinations (Acute) Worsening headaches (Acute) Rotator cuff tear, right (Acute) Arm pain (Acute) Low back pain (Acute) Wears hearing aid in both ears (Acute) Tubular adenoma of colon (Acute) Abdominal pain (Acute) Obesity (Chronic) Left leg numbness (Acute) Right leg numbness (Acute) COVID-19 (Acute) 09/05/21 Vaccinated, booster 03/25/21 Anterior epistaxis (Acute) Encounter for screening colonoscopy (Acute) Facial pain (Acute) Bilateral impacted cerumen (Acute) Fall (Acute) Abnormal stress test (Acute) ischemic changes in inferior and lateral leads - needs cath LFT elevation (Acute) Chest pressure (Acute) Sleep apnea (Acute) Encounter for annual physical exam (Acute) Tachycardia (Acute) Sinus pain (Acute) Migraine headache without aura (Acute) Conductive hearing loss, external ear (Acute) Carpal tunnel syndrome (Acute) Foot pain (Acute) Ventricular arrhythmia (Acute 12/16/06) Vivid dream (Acute 02/08/17) Sensorineural hearing loss (SNHL), bilateral (Chronic) Chronic left-sided low back pain with left-sided sciatica (Acute) Unspecified intellectual disabilities (Chronic) IQ-53 Syrinx of spinal cord (Chronic 06/13/17) Reduced libido (Chronic 04/01/11) Peptic reflux disease (Chronic) Multiple somatic complaints (Chronic) Hyperlipidemia (Chronic 09/19/12) Gout (Chronic 06/08/17) Essential hypertension (Chronic 05/18/13) Diabetes mellitus (Chronic 09/19/12) Depressive disorder (Chronic) with psychotic features hears voices DISH (diffuse idiopathic skeletal hyperostosis) (Chronic 03/09/17) Carotid stenosis, right (Chronic 07/01/16) per ulatrmary May 2016. Asymptomatic. Needs yearly ultrasound follow-up. 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) CVA (cerebral vascular accident) Surgical History History of esophagogastroduodenoscopy History of shoulder surgery History of tooth extraction Status post wrist surgery S/P wrist surgery 04/18/09 H/O esophagogastroduodenoscopy 02/16/11 H/O tooth extraction 04/18/89 H/O tooth extraction 04/18/89 WRIST SURGERY (~04/2009) SHOULDER SURGERY (~04/2009) EXTRACTION, TEETH (~12/1989) EGD - MAC (~02/2011) Colonoscopy - MAC (~02/2011) 04/2022 Family History Mother , AGE 56 Essential hypertension Leukemia Stomach cancer Father , AGE 85 Essential hypertension Depression Stroke Alcohol abuse A-fib Heart disease Sister Essential hypertension Heart disease Hyperlipidemia Sister Essential hypertension Cancer skin Sister No problems noted. Maternal Grandfather , AGE 68 Essential hypertension Heart disease Paternal Grandfather , AGE 83 Essential hypertension Stomach cancer Colon cancer Maternal Grandmother , AGE 89 Asthma Paternal Grandmother , AGE 84 Stroke Asthma Social History Smoking/Tobacco Use Status: Former Tobacco Use tobacco type: cigarettes Quit Date: 04/18/81 Tobacco: How many years used: 35 Smokeless tobacco user: chewing tobacco Second Hand Exposure: Yes Smoking risk assessment performed?: Yes Alcohol Intake: never Drug use: Never Substance use type: does not use Caregiver/Support person: No Household members: spouse Housing: house Communication Needs: Hard of Hearing, Corrective Lenses and Cannot Read Do you need help understanding health information?: Rarely 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 Pets and animals: Yes Pets and animals: cat(s) Sexually active: No Do you think of yourself as: straight/heterosexual Current gender identity: male What is your relationship status?: How often do you talk on the phone with friends or family?: three or more times per week How often do you get together with friends or relatives?: once per week How often do you attend scientology or nondenominational services?: 1-3 times per year Do you belong to any clubs or organized social groups?: no Panel score (0-1 are the most socially isolated patients): 2 What type of physical activity do you participate in: walking and aerobic Duration: 15-30 minutes/day Frequency: 3-4 times per week Tatianna/Jainism: Adventism Special tatianna needs: No Seatbelt use: always Helmet use: No Drive intox or ride w/intox driver manager: No Do you feel safe at home: Yes Victim of physical abuse: No Victim of emotional abuse: No Victim of sexual abuse: No Would you like helpful sources: No Additional Social history: unble to assess privately
[2024-03-23 17:56] LABS: Prothrombin Time 10.1 sec (9.1-11.1)
[2024-03-23 19:01] VITALS: BP 128/74; PULSE 84; RESP 16; TEMP 36.8; O2SAT 94
== END 2024-03-23 19:01 | disposition home or self-care (01) ==
PROVIDERS: Emergency Provider Emergency Medicine; PCP Physician Assistant
DX: R19.7 Diarrhea, unspecified (principal); I10 Essential (primary) hypertension; E78.5 Hyperlipidemia, unspecified; E11.9 Type 2 diabetes mellitus without complications; G47.30 Sleep apnea, unspecified; K92.1 Melena; Z87.11 Personal history of peptic ulcer disease
CPT/HCPCS: 80053; 86850; 86900; 86901; 99282; 83735; 85025; 85610; 99283

== ENCOUNTER 2024-03-31 08:19 | Inpatient (IN) | payer MEDICARE, MEDICAID, SELFPAY ==
[2024-03-31] VITALS (65 sets, daily range): BP systolic 90–176; BP diastolic 56–86; PULSE 73–107; RESP 11–24; TEMP 35.6–37; O2SAT 88–97; BMI 39.0
--- NOTE | 2024-03-31 08:30 | RT.EKG_ITS ---
APPROVED REPORT Exam: Resting ECG Reason for Exam: abdominal pain Patient Location: E HR:65 bpm ECG Measurements Heart Rate 65 AXIS WV 145 P 63 QRSd 83 QRS 55 QT 372 T 42 QTc 386 Conclusion Sinus rhythm...normal P axis, V-rate 60- 99 Narrow complex normal sinus rhythm at a rate of 60. Normal axis. Intervals within normal limits. N o ST segment abnormalities. No T wave versions. Compared to prior dated earlier this year no acute changes.
--- NOTE | 2024-03-31 09:00 | DI.CT_ITS ---
Exam(s) CT ABDOMEN PELVIS W EXAM: CT ABDOMEN PELVIS W CLINICAL HISTORY: diffuse abd pain, rebound, guarding , diarrhea. TECHNIQUE: Imaging Protocol: Axial computed tomography images with coronal and sagittal reformatted images were created and reviewed CONTRAST MATERIAL: Intravenous: Omnipaque-350 100cc Oral: None COMPARISON: CT CT CHEST/ABD/PEL W from 12/30/2021 FINDINGS: VISUALIZED LUNG BASES: Mild increased markings in both lung bases basal segments both lower lobes but no pleural effusions.. ABDOMEN: There is no ascites. LIVER: There are no focal hepatic lesions evident. No dilated intrahepatic ducts. GALLBLADDER/BILIARY: No obvious gallbladder pathology. CBD is not dilated. PANCREAS: No evidence of pancreatic mass nor dilatation of the pancreatic duct. SPLEEN: Spleen is not enlarged. No obvious intrasplenic lesions. Splenic and portal veins are paten t. ADRENALS: There are no significant adrenal masses. KIDNEYS:No cysts evident. No solid renal masses. No calculi nor hydronephrosis.. ABDOMINAL AORTA: Abdominal aorta is not enlarged. LYMPH NODES:There is no retroperitoneal nor paraaortic adenopathy. ABDOMINAL WALL: No evidence of significant anterior abdominal wall nor inguinal hernia. GI: There is evidence of acute appendicitis. The appendix is swollen to 1.3 cm diameter and contains multiple calcified appendicoliths. There is also Vane mesenteric inflammatory streaking. No free a ir. No abscess. Terminal ileum appears unremarkable. PELVIS: GI: No evidence of sigmoid diverticulitis. LYMPH NODES: There is no intrapelvic nor inguinal adenopathy. REPRODUCTIVE: Mildly enlarged prostate. Seminal vesicles unremarkable. No lymphadenopathy in the pe lvis. URINARY BLADDER: Mildly thickened urinary bladder wall. No radiopaque calculi in the bladder lumen. Pelvic ureters are not dilated. OSSEOUS: No fractures and no significant osseous lesions. IMPRESSION: 1. Findings are consistent with acute appendicitis, as described above. There is presently no eviden ce of perforation or abscess. RADIATION DOSE DELIVERED: 780.59mGy.cm Total DLP DATA REPOSITORY: All CT scans at this facility are submitted to the National Radiology Data Registry (NRDR) Dose Index Registry (DIR) with the [employer] (ACR). RADIATION OPTIMIZATION: All CT scans at this facility use at least one of these dose optimization te chniques: automated exposure control; mA and/or kV adjustment per patient size (includes targeted exa ms where dose is matched to clinical indication); or iterative reconstruction.
[2024-03-31] MEDS: Prochlorperazine 10 MG/2 ML VIAL 5 MG IVP (09:07)
[2024-03-31] MEDS: MORPHine 4 MG/ML SYR IVP ×2 (09:07→13:14)
[2024-03-31] MEDS: Normal Saline 1,000 ML 1000 ML IV ×2 (09:08→11:42)
[2024-03-31 09:15] LABS: BE (Venous) 0 mmol/L (-2-3); HCO3 (Venous) 25 mmol/L (23-28); Lactate 1.4 mmol/L (0.6-1.4); O2 Sat (Venous) 81 %; TCO2 (Venous) 21 mmol/L (24-29); pCO2 (Venous) 42 mmHg (41-51); pH (Venous) 7.38 (7.31-7.41); pO2 (Venous) 44 mmHg
[2024-03-31 09:16] LABS: Abs Immature Grans 0.09 10^3/uL (0.0-0.06); Absolute Basophil Count 0.06 10^3/uL (0.0-0.2); Absolute Eosinophil Count 0.03 10^3/uL (0.0-0.7); Absolute Neutrophil Count 13.38 10^3/uL (1.2-6.7); Basophils % 0.4 %; Eosinophils % 0.2 %; HCT 54.2 % (40.0-50.0); HGB 18.2 g/dL (13.5-17.5); Immature Grans % 0.6 %; Lymphocytes % 5.7 %; MCH 29.8 pg (27.0-33.0); MCHC 33.6 % (32.0-36.0); MCV 89 fL (80-95); MPV 10.7 fL (8.0-11.0); Monocytes % 7.8 %; Neutrophils % 85.3 %; Platelet Count 223 10^3/uL (130-400); RBC 6.11 10^6/uL (4.36-5.78); RDW 12.8 % (11.8-14.1); RDW-SD 41.5 fL; WBC 15.69 10^3/uL (4.4-10.8)
[2024-03-31 09:21] LABS: Absolute Lymphocyte Count 0.89 10^3/uL (1.2-3.4); Absolute Monocyte Count 1.22 10^3/uL (0.1-0.8)
[2024-03-31] MEDS: Normal Saline - Diluent 50 ML VIAL IJ (09:28)
[2024-03-31] MEDS: Omnipaque 350 MG/ML 100 ML BTL IJ (09:29)
[2024-03-31 09:37] LABS: ALT 42 U/L (16-63); AST 21 U/L (15-37); Albumin 4.3 g/dL (3.4-5.0); Alkaline Phosphatase 117 U/L (46-116); Anion Gap 13.7 mmol/L (3-11); BUN 12 mg/dL (7-18); Bilirubin, Total 0.84 mg/dL (0.2-1.0); CO2 25.3 mmol/L (21.0-32.0); Calcium 9.2 mg/dL (8.5-10.1); Chloride 100 mmol/L (98-107); Estimated GFR 86.16 (mL/min/1.73m2); Glucose 192 mg/dL (74-106); Lipase 28 U/L (<78); Magnesium 2.1 mg/dL (1.8-2.4); Potassium 4.6 mmol/L (3.5-5.1); Sodium 139 mmol/L (136-145); Total Protein 8.2 g/dL (6.4-8.2); Troponin I 5 ng/L (<or=76)
[2024-03-31 09:38] LABS: Diff Comment RBC Morph Reviewed; RBC Morphology Normal
[2024-03-31 10:00] LABS: Bilirubin Negative (Negative); Blood Negative (Negative); Clarity Clear (Clear); Glucose 500 mg/dL (Negative); Ketones >=160 mg/dL (Negative); Leukocyte Esterase Negative (Negative); Nitrite Negative (Negative); Urobilinogen 0.2 mg/dL (Up to 0.2)
--- NOTE | 2024-03-31 11:02 | DI.VRAD_ITS ---
Addendum created by Ricki Houser MD on 03/31/2024 11:02:58 AM EST: THIS REPORT CONTAINS FINDINGS THAT MAY BE CRITICAL TO PATIENT CARE. The findings were verbally communicated via telephone conference with Valery Sales at 11:02 AM EST on 03/31/2024. The findings were acknowledged and understood. Initial report created on 03/31/2024 11:02:12 AM EST: PROCEDURE INFORMATION: Exam: CT Abdomen And Pelvis With Contrast Exam date and time: 03/31/2024 9:29 AM Age: 58 years old Clinical indication: Other: Diffuse abd pain, rebound, guarding , diarrhea TECHNIQUE: Imaging protocol: Computed tomography of the abdomen and pelvis with contrast. Contrast material: OMNIPAQUE 350; Contrast volume: 100 ml; Contrast route: INTRAVENOUS (IV); COMPARISON: CT CHEST/ABD/PEL W 12/30/2021 3:49 PM FINDINGS: Lungs: There is bilateral lower lobe atelectasis. Liver: Normal. No mass. Gallbladder and biliary ducts: Normal. No calcified stones. No ductal dilation. Pancreas: Normal. No ductal dilation. Spleen: Normal. No splenomegaly. Adrenal glands: Normal. No mass. Kidneys and ureters: Normal. No hydronephrosis. Stomach and bowel: There is diverticulosis of the sigmoid colon. Appendix: The appendix is enlarged measuring 1.4 cm wall thickening and surrounding fat stranding. There is a 7 mm appendicolith at the base of the appendix. Intraperitoneal space: Unremarkable. No free air. No significant fluid collection. Vasculature: There are vascular calcifications. Lymph nodes: Unremarkable. No enlarged lymph nodes. Urinary bladder: Unremarkable as visualized. Reproductive: Enlarged prostate gland with its median lobe impinging on the neck of the bladder. Bones/joints: There is mild degenerative disease of both hip joints and symphysis pubis. Curvature of the lumbar spine convex to the left. The lumbar spine demonstrates mild degenerative changes at multiple levels. Soft tissues: Bilateral inguinal hernias. IMPRESSION: Acute appendicitis with no perforation or abscess formation. Dictated and Authenticated by: Ricki Houser MD. Ordering:ASHLEY Rasmussen MD
[2024-03-31 11:04] LABS: Troponin I 4 ng/L (<or=76)
[2024-03-31] MEDS: ACETAMINOPHEN 1,000 MG/100 ML BAG 400 MG IVPB (11:05)
--- NOTE | 2024-03-31 11:25 | W.ED.GENAD ---
Discharge Plan Discharge Details Chief Complaint: Abd Prob Primary Care Provider: Alvaro Lee ED Provider: Valery Sales Home Meds and New Rx's Prescriptions: No Action aspirin 81 mg tablet,delayed release (DR/EC) 81 mg PO DAILY cyproheptadine 4 mg tablet See Rx Instructions PO HS Qty: 180 3RF Rx Instructions: Take 4 mg at bedtime every night. Ok to take an additional 4 mg tab once daily as needed for headaches. venlafaxine 37.5 mg capsule,extended release 24hr 37.5 mg PO DAILY (DME) blood-glucose meter Misc See Dose Instructions .ROUTE .MEDSUPPLY Qty: 1 0RF Dose Instruction: As directed Rx Instructions: One touch verio E11.9 Once daily testing Balanced B-100 Complex 100 mg tablet extended release 1 tab PO DAILY Jardiance 25 mg tablet 25 mg PO QAM Qty: 90 5RF glipizide 10 mg tablet extended release 24hr See Rx Instructions .ROUTE .COMPLEX Qty: 90 5RF Dose Instruction: TAKE 1 TABLET BY MOUTH DAILY Rx Instructions: TAKE 1 TABLET BY MOUTH DAILY metoprolol succinate 25 mg tablet extended release 24 hr 25 mg PO DAILY risperidone [Risperdal] 2 mg tablet 2 mg PO BID multivitamin 1 EACH tablet 1 tab PO DAILY (DME) lancets [FreeStyle Lancets] 28 gauge misc See Rx Instructions .ROUTE .MEDSUPPLY Qty: 100 5RF Rx Instructions: daily testing E11.9. One Touch Verio Lancets rosuvastatin 10 mg tablet 10 mg PO HS Qty: 90 6RF nystatin 100,000 unit/gram cream 1 - 2 applic TP BID PRN (Reason: rash) Qty: 30 0RF (DME) Blood Glucose Test Strip See Rx Instructions .ROUTE .MEDSUPPLY Qty: 100 7RF Rx Instructions: One Touch Verio test strips E11.9. Test daily (DME) lancets [OneTouch Delica Lancets] 33 gauge misc See Rx Instructions .ROUTE DAILY Qty: 100 5RF Rx Instructions: E11.9 daily lisinopril 10 mg tablet 10 mg PO DAILY Qty: 90 4RF allopurinol 300 mg tablet 300 mg PO DAILY Qty: 90 4RF venlafaxine 75 mg capsule,extended release 24hr 75 mg PO DAILY Qty: 90 5RF gabapentin 300 mg capsule 300 mg PO BID Qty: 180 5RF esomeprazole magnesium [Nexium] 20 mg capsule,delayed release(DR/EC) 20 mg PO HS Qty: 90 3RF naproxen sodium [Aleve] 220 MG tablet 220 mg PO BID PRN HPI General Date/Time Provider Initiated Documentation: 03/31/24 08:21. HPI Narrative: This 58-year-old male with history of hypertension, hyperlipidemia diabetes presents with report of diarrhea for the past 8 days. He states few days ago he developed severe pain that is continued to worsen. It hurts when he walks reportedly. He has had nausea with several episodes of vomiting without blood. He is still having some intermittent diarrhea denies blood in his stool. Unsure regarding fever but has been sweaty today per patient. Denies urinary symptoms. Unable to eat or drink secondary to discomfort. Describes the pain as sharp and intermittently cramping. Patient has not had any alcohol for the past year. Related Data Home Medications ?Medication ?Instructions ?Recorded ?Confirmed multivitamin 1 tab PO DAILY 07/13/12 03/31/24 naproxen sodium 220 mg tablet 220 mg PO BID PRN 12/19/15 03/31/24 (Aleve) aspirin 81 mg tablet,delayed 81 mg PO DAILY 03/25/21 03/31/24 release blood-glucose meter #1 ea 05/14/21 03/31/24 lancets 28 gauge (FreeStyle #100 ea 06/18/21 03/31/24 Lancets) vit B complex 100 combo no.2 100 1 tab PO DAILY 06/18/21 03/31/24 mg tablet,extended release (Balanced B-100 Complex) empagliflozin 25 mg tablet 25 mg PO QAM #90 tabs 06/01/22 03/31/24 (Jardiance) glipizide 10 mg tablet, extended See Rx Instructions .Route 06/01/22 03/31/24 release 24 hr .COMPLEX #90 tabs rosuvastatin 10 mg tablet 10 mg PO HS #90 tabs 06/21/22 03/31/24 nystatin 100,000 unit/gram topical 1 - 2 applic topical BID PRN rash 07/05/22 03/31/24 cream #30 grams blood sugar diagnostic (Blood #100 ea 07/14/22 03/31/24 Glucose Test strips) lancets 33 gauge (OneTouch Delica #100 ea 09/14/22 03/31/24 Lancets) allopurinol 300 mg tablet 300 mg PO DAILY #90 tabs 06/06/23 03/31/24 esomeprazole magnesium 20 mg 20 mg PO HS #90 caps 06/06/23 03/31/24 capsule,delayed release (Nexium) gabapentin 300 mg capsule 300 mg PO BID #180 caps 06/06/23 03/31/24 lisinopril 10 mg tablet 10 mg PO DAILY #90 tabs 06/06/23 03/31/24 venlafaxine 75 mg capsule,extended 75 mg PO DAILY #90 caps 06/06/23 03/31/24 release 24 hr cyproheptadine 4 mg tablet See Rx Instructions PO HS migraine 06/07/23 03/31/24 headache #180 tabs metoprolol succinate 25 mg 25 mg PO DAILY 07/27/23 03/31/24 tablet,extended release 24 hr venlafaxine 37.5 mg 37.5 mg PO DAILY 10/13/23 03/31/24 capsule,extended release 24 hr risperidone 2 mg tablet (Risperdal) 2 mg PO BID 11/10/23 03/31/24 Previous Rx's ?Medication ?Instructions ?Recorded blood-glucose meter #1 ea 05/14/21 lancets 28 gauge (FreeStyle #100 ea 06/18/21 Lancets) empagliflozin 25 mg tablet 25 mg PO QAM #90 tabs 06/01/22 (Jardiance) glipizide 10 mg tablet, extended See Rx Instructions .Route 06/01/22 release 24 hr .COMPLEX #90 tabs rosuvastatin 10 mg tablet 10 mg PO HS #90 tabs 06/21/22 nystatin 100,000 unit/gram topical 1 - 2 applic topical BID PRN rash 07/05/22 cream #30 grams blood sugar diagnostic (Blood #100 ea 07/14/22 Glucose Test strips) lancets 33 gauge ([facility] [place] Delica #100 ea 09/14/22 Lancets) allopurinol 300 mg tablet 300 mg PO DAILY #90 tabs 06/06/23 esomeprazole magnesium 20 mg 20 mg PO HS #90 caps 06/06/23 capsule,delayed release (Nexium) gabapentin 300 mg capsule 300 mg PO BID #180 caps 06/06/23 lisinopril 10 mg tablet 10 mg PO DAILY #90 tabs 06/06/23 venlafaxine 75 mg capsule,extended 75 mg PO DAILY #90 caps 06/06/23 release 24 hr cyproheptadine 4 mg tablet See Rx Instructions PO HS migraine 06/07/23 headache #180 tabs Allergies Allergy/AdvReac Type Severity Reaction Status Date / Time Penicillins Allergy Unknown Other (See Verified 03/31/24 08:28 Comment) venom-honey bee Allergy Swelling Verified 03/31/24 08:28 metformin AdvReac Intermediate diarrhea Verified 03/31/24 08:28 diphenhydramine HCl AdvReac hyper Verified 03/31/24 08:28 General Stated Complaint: Abd Prob SIS: 3 Exam Narrative Exam Narrative: Patient alert and oriented, diaphoretic, pupils equal round reactive to light and accommodation, lungs clear to auscultation, cardiac rate rhythm regular, no abdominal bruit or pulsatile mass, rebound and guarding to right lower extremity, Course Vital Signs Vital signs: Vital Signs Temperature 36.6 C 03/31/24 08:24 Pulse 89 03/31/24 08:24 Respiratory Rate 16 03/31/24 08:24 Blood Pressure 171/80 H 03/31/24 08:24 Pulse Oximetry 97 03/31/24 08:24 Temperature 36.3 C L 03/31/24 08:27 Temperature Source Oral 03/31/24 08:27 Pulse 90 03/31/24 09:39 Respiratory Rate 18 03/31/24 09:39 Respiratory Effort Normal, Non-Labored 03/31/24 08:26 Blood Pressure 159/71 H 03/31/24 09:39 Blood Pressure Position Sitting 03/31/24 08:27 Pulse Oximetry 94 03/31/24 09:39 Oxygen Delivery Method Room Air 03/31/24 09:39 Oxygen Flow Rate 0 03/31/24 09:39 Pain Level 4 03/31/24 10:07 Comment 03/2703/31/24 08:24 Lab/Test Results Lab/Test Results: 03/31/24 11:15 Blood Blood Culture - Pending 03/31/24 10:42 Blood Blood Culture - Pending Laboratory Tests Range/Units 03/31/24 03/31/24 03/31/24 09:00 09:48 10:34 WBC (4.4-10.8) 10^3/uL 15.69 H RBC (4.36-5.78) 10^6/uL 6.11 H Hgb (13.5-17.5) g/dL 18.2 H Hct (40.0-50.0) % 54.2 H MCV (80-95) fL 89 MCH (27.0-33.0) pg 29.8 MCHC (32.0-36.0) % 33.6 RDW (11.8-14.1) % 12.8 Plt Count (130-400) 10^3/uL 223 MPV (8.0-11.0) fL 10.7 Immature Gran % % 0.6 Neutrophils % % 85.3 Lymphocytes % % 5.7 Monocytes % % 7.8 Eosinophils % % 0.2 Basophils % % 0.4 Nucleated RBC % (0.0-0.3) % 0.0 Absolute Neutrophils (1.2-6.7) 10^3/uL 13.38 H Absolute Lymphocytes (1.2-3.4) 10^3/uL 0.89 L Absolute Monocytes (0.1-0.8) 10^3/uL 1.22 H Absolute Eosinophils (0.0-0.7) 10^3/uL 0.03 Absolute Basophils (0.0-0.2) 10^3/uL 0.06 RBC Morphology Normal VBG pH (7.31-7.41) 7.38 VBG pCO2 (41-51) mmHg 42 VBG pO2 mmHg 44 VBG HCO3 (23-28) mmol/L 25 VBG Total CO2 (24-29) mmol/L 21 L VBG O2 Saturation % 81 VBG Base Excess (-2-3) mmol/L 0 VBG Lactate (0.6-1.4) mmol/L 1.4 Sodium (136-145) mmol/L 139 Potassium (3.5-5.1) mmol/L 4.6 Chloride (98-107) mmol/L 100 Carbon Dioxide (21.0-32.0) mmol/L 25.3 Anion Gap (3-11) mmol/L 13.7 H BUN (7-18) mg/dL 12 Creatinine (0.70-1.30) mg/dL 1.0 Est GFR (CKD-EPI 2020) (mL/min/1.73m2) 86.16 Glucose (74-106) mg/dL 192 H Calcium (8.5-10.1) mg/dL 9.2 Magnesium (1.8-2.4) mg/dL 2.1 Total Bilirubin (0.2-1.0) mg/dL 0.84 AST (15-37) U/L 21 ALT (16-63) U/L 42 Alkaline Phosphatase (46-116) U/L 117 H Troponin I (<or=76) ng/L 5 4 Total Protein (6.4-8.2) g/dL 8.2 Albumin (3.4-5.0) g/dL 4.3 Lipase (<78) U/L 28 Urine Color (Yellow) Yellow Urine Clarity (Clear) Clear Urine pH (5-8) 6.0 Ur Specific [place] (1.005-1.025) 1.010 Urine Protein (Neg-Trace) mg/dL Negative Urine Ketones (Negative) mg/dL >=160 H Urine Blood (Negative) Negative Urine Nitrite (Negative) Negative Urine Bilirubin (Negative) Negative Urine Urobilinogen (Up to 0.2) mg/dL 0.2 Ur Leukocyte Esterase (Negative) Negative Urine Glucose (Negative) mg/dL 500 H Medical Decision Making 58-year-old male presenting with acute abdominal pain. Secondary to diaphoresis and concerning abdominal exam CT abdomen pelvis was ordered in addition to blood work. Leukocytosis 15,000 increased to 11,000 from patient's visit several days prior to arrival. Patient does have a listed in his chart that he has a history of alcohol consumption, he has not had a drink in over a year per patient. He has been n.p.o. since last evening for patient. Patient received Compazine 5 mg, morphine 4 mg, after which she developed a fever, temperature 100.7 at 2300. Blood cultures were ordered, lactate within normal limits, ceftriaxone and Flagyl initiated secondary to penicillin allergy. Case discussed with Dr. Ibarra after reviewing the imaging with the radiologist at [facility], Dr. Yanes which displays acute appendicitis without obvious perforation. Dr. Ibarra aware and will take operating room today. Urinalysis with greater than 160 ketones, will continue hydrating with fluids, received 2 L of normal saline IV in the emergency department, no evidence of volume overload status. Quality:SDKY Health Related Social Needs: No Data to Display FOR[facility]LY [facility] All Active Problems (Updated 03/23/24 @ 18:53 by Karmen Heaton MD) Diarrhea (Acute) Hallucinations (Acute) Worsening headaches (Acute) Rotator cuff tear, right (Acute) Arm pain (Acute) Low back pain (Acute) Wears hearing aid in both ears (Acute) Tubular adenoma of colon (Acute) Abdominal pain (Acute) Obesity (Chronic) Left leg numbness (Acute) Right leg numbness (Acute) COVID-19 (Acute) 09/05/21 Vaccinated, booster 03/25/21 Anterior epistaxis (Acute) Encounter for screening colonoscopy (Acute) Facial pain (Acute) Bilateral impacted cerumen (Acute) Fall (Acute) Abnormal stress test (Acute) ischemic changes in inferior and lateral leads - needs cath LFT elevation (Acute) Chest pressure (Acute) Sleep apnea (Acute) Encounter for annual physical exam (Acute) Tachycardia (Acute) Sinus pain (Acute) Migraine headache without aura (Acute) Conductive hearing loss, external ear (Acute) Carpal tunnel syndrome (Acute) Foot pain (Acute) Ventricular arrhythmia (Acute 12/16/06) Vivid dream (Acute 02/08/17) Sensorineural hearing loss (SNHL), bilateral (Chronic) Chronic left-sided low back pain with left-sided sciatica (Acute) Unspecified intellectual disabilities (Chronic) IQ-53 Syrinx of spinal cord (Chronic 06/13/17) Reduced libido (Chronic 04/01/11) Peptic reflux disease (Chronic) Multiple somatic complaints (Chronic) Hyperlipidemia (Chronic 09/19/12) Gout (Chronic 06/08/17) Essential hypertension (Chronic 05/18/13) Diabetes mellitus (Chronic 09/19/12) Depressive disorder (Chronic) with psychotic features hears voices DISH (diffuse idiopathic skeletal hyperostosis) (Chronic 03/09/17) Carotid stenosis, right (Chronic 07/01/16) per ulatrsound May 2016. Asymptomatic. Needs yearly ultrasound follow-up. 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) CVA (cerebral vascular accident) Surgical History History of esophagogastroduodenoscopy History of shoulder surgery History of tooth extraction Status post wrist surgery S/P wrist surgery 04/18/09 H/O esophagogastroduodenoscopy 02/16/11 H/O tooth extraction 04/18/89 H/O tooth extraction 04/18/89 WRIST SURGERY (~04/2009) SHOULDER SURGERY (~04/2009) EXTRACTION, TEETH (~12/1989) EGD - MAC (~02/2011) Colonoscopy - MAC (~02/2011) 04/2022 Family History Mother , AGE 56 Essential hypertension Leukemia Stomach cancer Father , AGE 85 Essential hypertension Depression Stroke Alcohol abuse A-fib Heart disease Sister Essential hypertension Heart disease Hyperlipidemia Sister Essential hypertension Cancer skin Sister No problems noted. Maternal Grandfather , AGE 68 Essential hypertension Heart disease Paternal Grandfather , AGE 83 Essential hypertension Stomach cancer Colon cancer Maternal Grandmother , AGE 89 Asthma Paternal Grandmother , AGE 84 Stroke Asthma Social History Smoking/Tobacco Use Status: Former Tobacco Use tobacco type: cigarettes Quit Date: 04/18/81 Tobacco: How many years used: 35 Smokeless tobacco user: chewing tobacco Second Hand Exposure: Yes Smoking risk assessment performed?: Yes Alcohol Intake: never Drug use: Never Substance use type: does not use Caregiver/Support person: No Household members: spouse Housing: house Communication Needs: Hard of Hearing, Corrective Lenses and Cannot Read Do you need help understanding health information?: Rarely current occupation: [employer] Pets and animals: Yes Pets and animals: cat(s) Sexually active: No Do you think of yourself as: straight/heterosexual Current gender identity: male What is your relationship status?: How often do you talk on the phone with friends or family?: three or more times per week How often do you get together with friends or relatives?: once per week How often do you attend zoroastrianism or presybeterian services?: 1-3 times per year Do you belong to any clubs or organized social groups?: no Panel score (0-1 are the most socially isolated patients): 2 What type of physical activity do you participate in: walking and aerobic Duration: 15-30 minutes/day Frequency: 3-4 times per week Tatianna/Pentecostalism: Congregational Special tatianna needs: No Seatbelt use: always Helmet use: No Drive intox or ride w/intox auto haulaway driver: No Do you feel safe at home: Yes Victim of physical abuse: No Victim of emotional abuse: No Victim of sexual abuse: No Would you like helpful sources: No Additional Social history: unble to assess privately
[2024-03-31] MEDS: cefTRIAXone 2 GM/50 ML BAG IVPB (11:29)
[2024-03-31] MEDS: metroNIDAZOLE 500 MG/100 ML BAG 100 MG IVPB ×2 (11:30→18:16)
--- NOTE | 2024-03-31 12:16 | HPE_ITS ---
Date of service: 03/31/24 Time of Service: 12:17 Assessment and Plan Assessment and plan (1) Anxiety: Status: Chronic (2) Depressive disorder: Status: Chronic (3) Alcohol intake above recommended sensible limits: Status: Chronic (4) Hypertension: Status: Chronic (5) Hyperlipidemia: Status: Chronic (6) Diabetes mellitus: Status: Chronic (7) Obesity: Status: Chronic (8) Peptic reflux disease: Status: Chronic (9) Sleep apnea: Status: Acute (10) History of ETOH abuse: (11) Former smoker: Status: Acute (12) Edentulous: Status: Acute (13) Bilateral inguinal hernia without obstruction or gangrene: Status: Acute (14) Acute appendicitis: Status: Acute Assessment and plan: Informed consent is obtained for the procedural (explained in simple layman's terms that the pt and/or family could understand) explaining risks vs benefits and alternatives to the procedure and consequences if we do not do the procedure. Risks include but are not limited to: bleeding, infections, pneumonia, blood clots/DVT/PE, anesthesia (aspiration, damage to teeth/airway/AZ/CVA//prolonged mechanical ventilation/PTX/IV infections), damage to bowel, bladder, blood vessels, ureters. Damage to solid organs requiring removal. . Leakage from anastomosis requiring colostomy. Wound infections requiring further surgery. ?Scarring and disfigurement. Subsequent bowel obstructions from scar tissue.? Chronic pain or numbness from the incision, or hernia. Possible open procedure if minimally invasive procedure is being attempted. The patient will be admitted postoperatively for antibiotics and pain management. (15) Illiterate: Status: Acute History of Present Illness Narrative: Patient is a 4-year-old male who was in his normal state of health on night he started to develop vague abdominal pain and nausea. Is progressed to pain in the right lower quadrant which is severe. He has had nausea vomiting and anorexia. He has been unable to eat. However he did have banana at 6 AM today. He has been running a temperature. He denies any chest pain or shortness of breath. He denies any productive cough. He denies any trauma. He did undergo a CT scan which does show acute appendicitis with no abscess and there is a fecalith. CT also shows a small umbilical hernia and bilateral inguinal hernias right greater than left. Past surgical history significant for shoulder surgery and dental work. He denies any complications from anesthesia. He is on aspirin. He did receive ceftriaxone and Flagyl in the ED. Past medical history significant for stroke in the past he is not anticoagulated however. GERD/KAMILLA/diabetes/hypertension/hyperlipidemia/EtOH abuse/former smoker. Review of Systems All systems reviewed & are unremarkable except as noted in HPI and below PFSH All Active Problems (Updated 03/31/24 @ 12:50 by Trina Ibarra, ) Illiterate (Acute) Acute appendicitis (Acute) Bilateral inguinal hernia without obstruction or gangrene (Acute) Edentulous (Acute) Former smoker (Acute) Diarrhea (Acute) Hallucinations (Acute) Worsening headaches (Acute) Rotator cuff tear, right (Acute) Arm pain (Acute) Low back pain (Acute) Wears hearing aid in both ears (Acute) Tubular adenoma of colon (Acute) Abdominal pain (Acute) Obesity (Chronic) Left leg numbness (Acute) Right leg numbness (Acute) COVID-19 (Acute) 09/05/21 Vaccinated, booster 03/25/21 Anterior epistaxis (Acute) Encounter for screening colonoscopy (Acute) Facial pain (Acute) Bilateral impacted cerumen (Acute) Fall (Acute) Abnormal stress test (Acute) ischemic changes in inferior and lateral leads - needs cath LFT elevation (Acute) Chest pressure (Acute) Sleep apnea (Acute) Encounter for annual physical exam (Acute) Tachycardia (Acute) Sinus pain (Acute) Migraine headache without aura (Acute) Conductive hearing loss, external ear (Acute) Carpal tunnel syndrome (Acute) Foot pain (Acute) Ventricular arrhythmia (Acute 12/16/06) Vivid dream (Acute 02/08/17) Sensorineural hearing loss (SNHL), bilateral (Chronic) Chronic left-sided low back pain with left-sided sciatica (Acute) Unspecified intellectual disabilities (Chronic) IQ-53 Syrinx of spinal cord (Chronic 06/13/17) Reduced libido (Chronic 04/01/11) Peptic reflux disease (Chronic) Multiple somatic complaints (Chronic) Hyperlipidemia (Chronic 09/19/12) Gout (Chronic 06/08/17) Essential hypertension (Chronic 05/18/13) Diabetes mellitus (Chronic 09/19/12) Depressive disorder (Chronic) with psychotic features hears voices DISH (diffuse idiopathic skeletal hyperostosis) (Chronic 03/09/17) Carotid stenosis, right (Chronic 07/01/16) per carlaatrsomary May 2016. Asymptomatic. Needs yearly ultrasound follow-up. 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) CVA (cerebral vascular accident) Surgical History History of esophagogastroduodenoscopy History of shoulder surgery History of tooth extraction Status post wrist surgery S/P wrist surgery 04/18/09 H/O esophagogastroduodenoscopy 02/16/11 H/O tooth extraction 04/18/89 H/O tooth extraction 04/18/89 WRIST SURGERY (~04/2009) SHOULDER SURGERY (~04/2009) EXTRACTION, TEETH (~12/1989) EGD - MAC (~02/2011) Colonoscopy - MAC (~02/2011) 04/2022 Family History Mother , AGE 56 Essential hypertension Leukemia Stomach cancer Father , AGE 85 Essential hypertension Depression Stroke Alcohol abuse A-fib Heart disease Sister Essential hypertension Heart disease Hyperlipidemia Sister Essential hypertension Cancer skin Sister No problems noted. Maternal Grandfather , AGE 68 Essential hypertension Heart disease Paternal Grandfather , AGE 83 Essential hypertension Stomach cancer Colon cancer Maternal Grandmother , AGE 89 Asthma Paternal Grandmother , AGE 84 Stroke Asthma Social History Smoking/Tobacco Use Status: Former Tobacco Use tobacco type: cigarettes Quit Date: 04/18/81 Tobacco: How many years used: 35 Smokeless tobacco user: chewing tobacco Second Hand Exposure: Yes Smoking risk assessment performed?: Yes Alcohol Intake: never Drug use: Never Substance use type: does not use Caregiver/Support person: No Household members: spouse Housing: house Communication Needs: Hard of Hearing, Corrective Lenses and Cannot Read Do you need help understanding health information?: Rarely 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 Pets and animals: Yes Pets and animals: cat(s) Sexually active: No Do you think of yourself as: straight/heterosexual Current gender identity: male What is your relationship status?: How often do you talk on the phone with friends or family?: three or more times per week How often do you get together with friends or relatives?: once per week How often do you attend yarsanism or jew services?: 1-3 times per year Do you belong to any clubs or organized social groups?: no Panel score (0-1 are the most socially isolated patients): 2 What type of physical activity do you participate in: walking and aerobic Duration: 15-30 minutes/day Frequency: 3-4 times per week Tatianna/Scientology: Muslim Special tatianna needs: No Seatbelt use: always Helmet use: No Drive intox or ride w/intox driver retraining instructor: No Do you feel safe at home: Yes Victim of physical abuse: No Victim of emotional abuse: No Victim of sexual abuse: No Would you like helpful sources: No Additional Social history: unble to assess privately Meds Allergies and Home Medications Allergies Allergy/AdvReac Type Severity Reaction Status Date / Time Penicillins Allergy Unknown Other (See Verified 03/31/24 08:28 Comment) venom-honey bee Allergy Swelling Verified 03/31/24 08:28 metformin AdvReac Intermediate diarrhea Verified 03/31/24 08:28 diphenhydramine HCl AdvReac hyper Verified 03/31/24 08:28 Home Medications ?Medication ?Instructions ?Recorded ?Confirmed ?Type multivitamin 1 tab PO DAILY 07/13/12 03/31/24 History naproxen sodium 220 mg tablet 220 mg PO BID PRN 12/19/15 03/31/24 History (Aleve) aspirin 81 mg tablet,delayed 81 mg PO DAILY 03/25/21 03/31/24 History release blood-glucose meter #1 ea 05/14/21 03/31/24 Rx lancets 28 gauge (FreeStyle #100 ea 06/18/21 03/31/24 Rx Lancets) vit B complex 100 combo no.2 100 1 tab PO DAILY 06/18/21 03/31/24 History mg tablet,extended release (Balanced B-100 Complex) empagliflozin 25 mg tablet 25 mg PO QAM #90 tabs 06/01/22 03/31/24 Rx (Jardiance) glipizide 10 mg tablet, extended See Rx Instructions .Route 06/01/22 03/31/24 Rx release 24 hr .COMPLEX #90 tabs rosuvastatin 10 mg tablet 10 mg PO HS #90 tabs 06/21/22 03/31/24 Rx nystatin 100,000 unit/gram topical 1 - 2 applic topical BID PRN rash 07/05/22 03/31/24 Rx cream #30 grams blood sugar diagnostic (Blood #100 ea 07/14/22 03/31/24 Rx Glucose Test strips) lancets 33 gauge (OneTouch Delica #100 ea 09/14/22 03/31/24 Rx Lancets) allopurinol 300 mg tablet 300 mg PO DAILY #90 tabs 06/06/23 03/31/24 Rx esomeprazole magnesium 20 mg 20 mg PO HS #90 caps 06/06/23 03/31/24 Rx capsule,delayed release (Nexium) gabapentin 300 mg capsule 300 mg PO BID #180 caps 06/06/23 03/31/24 Rx lisinopril 10 mg tablet 10 mg PO DAILY #90 tabs 06/06/23 03/31/24 Rx venlafaxine 75 mg capsule,extended 75 mg PO DAILY #90 caps 06/06/23 03/31/24 Rx release 24 hr cyproheptadine 4 mg tablet See Rx Instructions PO HS migraine 06/07/23 03/31/24 Rx headache #180 tabs metoprolol succinate 25 mg 25 mg PO DAILY 07/27/23 03/31/24 History tablet,extended release 24 hr venlafaxine 37.5 mg 37.5 mg PO DAILY 10/13/23 03/31/24 History capsule,extended release 24 hr risperidone 2 mg tablet (Risperdal) 2 mg PO BID 11/10/23 03/31/24 History Exam Narrative Exam Narrative: PHYSICAL EXAM GENERAL APPEARANCE: Alert, healthy appearance, oriented, x 3,? in no acute distress HYDRATION: Well hydrated HEAD, EYES, EARS, NECK, THROAT: Head is normocephalic, pupils equal, round, reactive to light and accommodation, ocular movement intact, sclera clear and no jaundice. ?Edentulous. No sore throat.? No jaw pain. No thrush NECK Trachea midline.? Neck supple.? No JVD LUNGS: normal respiration/normal chest excursion. ?Clear to auscultation bilaterally. ?No wheeze. ?HEART: Regular rate and rhythm. no murmurs EXTREMITY: No edema or cyanosis.? no leg pain, redness, swelling.? ABDOMEN: Right localized lower quadrant tenderness with rebound and guarding. Small umbilical hernia. Protuberant abdomen. Minimal bowel sounds. Results Labs 03/31/24 09:00 03/31/24 09:00 Labs: Laboratory Results - last 24 hr 03/31/24 03/31/24 03/31/24 09:00 09:48 10:34 WBC 15.69 H RBC 6.11 H Hgb 18.2 H Hct 54.2 H MCV 89 MCH 29.8 MCHC 33.6 RDW 12.8 Plt Count 223 MPV 10.7 Immature Gran % 0.6 Neutrophils % 85.3 Lymphocytes % 5.7 Monocytes % 7.8 Eosinophils % 0.2 Basophils % 0.4 Nucleated RBC % 0.0 Absolute Neutrophils 13.38 H Absolute Lymphocytes 0.89 L Absolute Monocytes 1.22 H Absolute Eosinophils 0.03 Absolute Basophils 0.06 RBC Morphology Normal VBG pH 7.38 VBG pCO2 42 VBG pO2 44 VBG HCO3 25 VBG Total CO2 21 L VBG O2 Saturation 81 VBG Base Excess 0 VBG Lactate 1.4 Sodium 139 Potassium 4.6 Chloride 100 Carbon Dioxide 25.3 Anion Gap 13.7 H BUN 12 Creatinine 1.0 Est GFR (CKD-EPI 2020) 86.16 Glucose 192 H Calcium 9.2 Magnesium 2.1 Total Bilirubin 0.84 AST 21 ALT 42 Alkaline Phosphatase 117 H Troponin I 5 4 Total Protein 8.2 Albumin 4.3 Lipase 28 Urine Color Yellow Urine Clarity Clear Urine pH 6.0 Ur Specific [place] 1.010 Urine Protein Negative Urine Ketones >=160 H Urine Blood Negative Urine Nitrite Negative Urine Bilirubin Negative Urine Urobilinogen 0.2 Ur Leukocyte Esterase Negative Urine Glucose 500 H Last Vital Signs Temp 36.3 C L 03/31/24 08:27 Pulse 80 03/31/24 11:16 Resp 17 03/31/24 12:00 BP 162/78 H 03/31/24 11:16 Pulse Ox 92 03/31/24 11:20 Time Spent Time spent with Patient: 40-54 minutes Time was spent: preparing to see the patient(eg.review tests), obtaining and/or reviewing separately otained hiistory, ordering medications,tests, procedures, referring, communicating with other health care transitions nurse, indepentently interpreting results, counseling the patient, care coordination and other
--- NOTE | 2024-03-31 12:22 | ANES.PREOP_ITS ---
General Info Date of Service Date Performed: 03/31/24 Height: 5 ft 8 in Weight: 116.573 kg Body Mass Index (BMI): 39.0 Meds Allergies and Home Medications Allergies Allergy/AdvReac Type Severity Reaction Status Date / Time Penicillins Allergy Unknown Other (See Verified 03/31/24 08:28 Comment) venom-honey bee Allergy Swelling Verified 03/31/24 08:28 metformin AdvReac Intermediate diarrhea Verified 03/31/24 08:28 diphenhydramine HCl AdvReac hyper Verified 03/31/24 08:28 Home Medication ?Medication ?Instructions ?Recorded multivitamin 1 tab PO DAILY 07/13/12 naproxen sodium 220 mg tablet 220 mg PO BID PRN 12/19/15 (Aleve) aspirin 81 mg tablet,delayed 81 mg PO DAILY 03/25/21 release blood-glucose meter #1 ea 05/14/21 lancets 28 gauge (FreeStyle #100 ea 06/18/21 Lancets) vit B complex 100 combo no.2 100 1 tab PO DAILY 06/18/21 mg tablet,extended release (Balanced B-100 Complex) empagliflozin 25 mg tablet 25 mg PO QAM #90 tabs 06/01/22 (Jardiance) glipizide 10 mg tablet, extended See Rx Instructions .Route 06/01/22 release 24 hr .COMPLEX #90 tabs rosuvastatin 10 mg tablet 10 mg PO HS #90 tabs 06/21/22 nystatin 100,000 unit/gram topical 1 - 2 applic topical BID PRN rash 07/05/22 cream #30 grams blood sugar diagnostic (Blood #100 ea 07/14/22 Glucose Test strips) lancets 33 gauge (OneTouch Delica #100 ea 09/14/22 Lancets) allopurinol 300 mg tablet 300 mg PO DAILY #90 tabs 06/06/23 esomeprazole magnesium 20 mg 20 mg PO HS #90 caps 06/06/23 capsule,delayed release (Nexium) gabapentin 300 mg capsule 300 mg PO BID #180 caps 06/06/23 lisinopril 10 mg tablet 10 mg PO DAILY #90 tabs 06/06/23 venlafaxine 75 mg capsule,extended 75 mg PO DAILY #90 caps 06/06/23 release 24 hr cyproheptadine 4 mg tablet See Rx Instructions PO HS migraine 02/20/24 headache #180 tabs metoprolol succinate 25 mg 25 mg PO DAILY 07/27/23 tablet,extended release 24 hr venlafaxine 37.5 mg 37.5 mg PO DAILY 10/13/23 capsule,extended release 24 hr risperidone 2 mg tablet (Risperdal) 2 mg PO BID 11/10/23 Current Visit Medications: Current Medications Generic Name Dose Route Start Last Admin Trade Name Wesley PRN Reason Stop Dose Admin Iohexol 100 ml 03/31/24 09:30 03/31/24 09:29 Omnipaque 350 Mg/Ml 100 Ml Btl IJ 04/30/24 23:59 100 ml DIRECTED TYSON Administration Sodium Chloride 50 ml 03/31/24 09:30 03/31/24 09:28 Normal Saline - Diluent 50 Ml Vial IJ 50 ml .FOR DI USE TYSON Administration PFSH Active Problems Active Problems: Problem Status Onset Code Diarrhea Acute R19.7 Hallucinations Acute R44.3 Worsening headaches Acute R51.9 Rotator cuff tear, right Acute M75.101 Arm pain Acute M79.603 Low back pain Acute M54.50 Wears hearing aid in both ears Acute Z97.4 Tubular adenoma of colon Acute D12.6 Abdominal pain Acute R10.9 Obesity Chronic E66.9 Left leg numbness Acute R20.0 Right leg numbness Acute R20.0 COVID-19 Acute U07.1 Anterior epistaxis Acute R04.0 Encounter for screening colonoscopy Acute Z12.11 Facial pain Acute R51.9 Bilateral impacted cerumen Acute H61.23 Fall Acute W19.XXXA Abnormal stress test Acute R94.39 LFT elevation Acute R79.89 Chest pressure Acute R07.89 Sleep apnea Acute G47.30 Encounter for annual physical exam Acute Z00.00 Tachycardia Acute R00.0 Sinus pain Acute J34.89 Migraine headache without aura Acute G43.009 Conductive hearing loss, external ear Acute H90.2 Carpal tunnel syndrome Acute G56.00 Foot pain Acute M79.673 Ventricular arrhythmia Acute 12/16/06 I49.9 Vivid dream Acute 02/08/17 R68.89 Sensorineural hearing loss (SNHL), bilateral Chronic H90.3 Chronic left-sided low back pain with left-sided sciatica Acute M54.42, G89.29 Unspecified intellectual disabilities Chronic F79 Syrinx of spinal cord Chronic 06/13/17 G95.0 Reduced libido Chronic 04/01/11 R68.82 Peptic reflux disease Chronic K21.9 Multiple somatic complaints Chronic R68.89 Hyperlipidemia Chronic 09/19/12 E78.5 Gout Chronic 06/08/17 M10.9 Essential hypertension Chronic 05/18/13 I10 Diabetes mellitus Chronic 09/19/12 E11.9 Depressive disorder Chronic F32.9 DISH (diffuse idiopathic skeletal hyperostosis) Chronic 03/09/17 M48.10 Carotid stenosis, right Chronic 07/01/16 I65.21 Anxiety Chronic F41.9 Alcohol intake above recommended sensible limits Chronic Z72.89 Hypertension Chronic I10 Hyperlipidemia Chronic E78.5 Medical History Medical History History of ETOH abuse Impacted cerumen of both ears Abdominal pain (03/17/02) Chest pain Gastrointestinal hemorrhage 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) CVA (cerebral vascular accident) Surgical History Surgical History History of esophagogastroduodenoscopy History of shoulder surgery History of tooth extraction Status post wrist surgery S/P wrist surgery 04/18/09 H/O esophagogastroduodenoscopy 02/16/11 H/O tooth extraction 04/18/89 H/O tooth extraction 04/18/89 WRIST SURGERY (~04/2009) SHOULDER SURGERY (~04/2009) EXTRACTION, TEETH (~12/1989) EGD - MAC (~02/2011) Colonoscopy - MAC (~02/2011) 04/2022 Tobacco Smoking/Tobacco Use Status: Former Tobacco Use Smokeless tobacco user: chewing tobacco Passive smoking exposure: Yes Second hand exposure: Yes Alcohol Alcohol Intake: never Substance Use Substance use: Never Substance use type: does not use Vital Signs and Lab Results Vital Signs Most Recent Vital Signs in EMR: Most Recent Vital Signs Temp Pulse Resp BP Pulse Ox 36.3 C L 80 17 162/78 H 94 03/31/24 08:27 03/31/24 11:16 03/31/24 12:05 03/31/24 11:16 03/31/24 12:05 Lab Results 03/31/24 09:00 03/31/24 09:00 Blood Type / Crossmatch: 2 Antibody Screen NEGATIVE 03/23/24 Complete Blood Count: 2 White Blood Count 15.69 10^3/uL (4.4-10.8) H 03/31/24 09:00 Red Blood Count 6.11 10^6/uL (4.36-5.78) H 03/31/24 09:00 Hemoglobin 18.2 g/dL (13.5-17.5) H 03/31/24 09:00 Hematocrit 54.2 % (40.0-50.0) H 03/31/24 09:00 Platelet Count 223 10^3/uL (130-400) 03/31/24 09:00 Venous Blood Lactate 1.4 mmol/L (0.6-1.4) 03/31/24 09:00 Complete Metabolic Panel: 2 Sodium 139 mmol/L (136-145) 03/31/24 09:00 Potassium 4.6 mmol/L (3.5-5.1) 03/31/24 09:00 Chloride 100 mmol/L (98-107) 03/31/24 09:00 Carbon Dioxide 25.3 mmol/L (21.0-32.0) 03/31/24 09:00 BUN 12 mg/dL (7-18) 03/31/24 09:00 Creatinine 1.0 mg/dL (0.70-1.30) 03/31/24 09:00 Est GFR (CKD-EPI 2020) 86.16 (mL/min/1.73m2) 03/31/24 09:00 Magnesium 2.1 mg/dL (1.8-2.4) 03/31/24 09:00 Calcium 9.2 mg/dL (8.5-10.1) 03/31/24 09:00 Albumin 4.3 g/dL (3.4-5.0) 03/31/24 09:00 Glucose 192 mg/dL (74-106) H 03/31/24 09:00 Liver Function Panel: 2 Alanine Aminotransferase (ALT/SGPT) 42 U/L (16-63) 03/31/24 09: 00 Aspartate Amino Transf (AST/SGOT) 21 U/L (15-37) 03/31/24 09:00 Coagulation Panel: 2 INR International Normalized Ratio 1.0 (0.9-1.1) 03/23/24 17:1 5 Prothrombin Time 10.1 sec (9.1-11.1) 03/23/24 17:15 Cardiac Panel: 2 Troponin I 4 ng/L (<or=76) 03/31/24 Arterial Blood Gas: 2 No Data to Display Venous Blood Gas: 2 Venous Blood pH 7.38 (7.31-7.41) 03/31/24 09:00 Venous Blood Partial Pressure O2 44 mmHg 03/31/24 09:00 Venous Blood Partial Pressure CO2 42 mmHg (41-51) 03/31/24 09:0 0 Venous Blood Oxygen Saturation 81 % 03/31/24 09:00 Venous Blood HCO3 25 mmol/L (23-28) 03/31/24 09:00 Venous Blood Base Excess 0 mmol/L (-2-3) 03/31/24 09:00 Venous Blood Total Carbon Dioxide 21 mmol/L (24-29) L 03/31/24 09:00 Pancreas Panel: 2 Lipase 28 U/L (<78) 03/31/24 09:00 Thyroid Panel: 2 No Data to Display Infectious Disease: 2 No Data to Display Blood Cultures: 2 No Data to Display Toxicology Panel: 2 No Data to Display Imaging and Studies Imaging and Studies Study information below may be from another EMR and interpreted by another provider. Please see original notes in EMR for more complete details. EKG Summary: Conclusion Sinus rhythm...normal P axis, V-rate 60- 99 Physician: Rate 78, sinus rhythm, no significant ST elevations or depressions. No evidence of STEMI. unchanged Stress Test Summary: 05/08 Stress ECG Conclusion 1. Resting electrocardiogram was normal 2. Patient exercised on the Eladio protocol. He completed a workload of 7 METS, limited by shortness of breath and leg pain. 3. Normal heart rate and blood pressure response to exercise. The patient achieved 96% of predicted heart rate for age 4. Electrocardiographically there was ST depression noted in inferior and lateral leads consistent with myocardial ischemia 5. There were no significant dysrhythmias 6. Suggest repeat with imaging if clinically indicated Kamara Treadmill Score is 4.3 which is Moderate risk. Carotid Artery Summary:: Bilateral duplex carotid ultrasound was performed. There is bilateral antegrade vertebral flow. There is little if any visible atheromatous plaque in the carotid circulation. Flow velocities in common internal and external carotid arteries are within normal limits bilaterally. IMPRESSION: No evidence of a hemodynamically significant carotid stenosis. 05/27/16 Anesthesia Assessment and Plan Anesthesia History Personal History: No History of Anesthesia Complications Family History: No Family History of Anesthesia Complications Exercise Tolerance Exercise Tolerance: Metabolic Equivalents>4 Pertinent Negatives Pertinent Negatives: No Symptoms of GERD (On Rx) Cardiac & Pulmonary Exam Cardiac Exam: Normal S1/S2 Heart Sounds Pulmonary Exam: Clear Bilateral Breath Sounds Implantable Cardiac Device Does patient have a Pacemaker or an ICD?: No Airway Exam Known Difficult Airway: No Mallampati Class: 3 Mouth Opening: Normal (> 3cm) Thyromental Distance: Greater than 3 cm Neck Range of Motion: Full ROM Neck Circumference: Thick Teeth Condition: Normal Dentition and Generalized Poor Dentition ASA Classification ASA Score: ASA 3 Emergency Case?: No NPO Status NPO Status: NPO Clears >2 hours, Solids >8 hours Anesthesia Plan Resuscitation Status: Full Code Anesthesia Technique: General Anesthesia Airway Planned: Endotracheal Tube Monitors Used: Standard Monitors
[2024-03-31 12:35] LABS: Troponin I 5 ng/L (<or=76)
[2024-03-31] MEDS: Lactated Ringers 1,000 ML 50 ML IV (13:33)
--- NOTE | 2024-03-31 14:30 | APP_PTH ---
PATIENT: Ozzie Chaudhary LOC: [id number]#:[id number] AGE/SX: 58/M ROOM: RE03/31/[address]: Trina Ibarra : 1965 BED: A DIS: 04/02/2024 SPEC #: [id number] RECD: 04/02/24 12:35 STATUS: SOUT REQ #: [id number] WEST: 03/31/24 14:[address]: Trina Ibarra DEPT: Surgical Specimen RECD BY: Valery Hopkins ENTERED: 04/02/24 12:36 SP TYPE: Appendix OTHR DR: Alvaro Lee [facility] Tissues: 1 - APPENDIX NOT INCIDENTAL Procedures: GROSS AND MICRO LEVEL 3 Comments: [id number]
[2024-03-31] MEDS: Bupivacaine 0.25% Pres-Free W/EPI 30 ML VIAL (14:35)
--- NOTE | 2024-03-31 15:26 | W.BRIEF ---
Date of service: 03/31/24 Time of Service: 15:26 Brief Operative Note Procedure/Pre & Post Op Diagnoses/Calender Machine Operator Helper: Operation Date: 03/31/24 12:25 Actual Procedures p Appendectomy Laparoscopic(Not Applicable) - Trina Ibarra DO Pre-Op Diagnosis: Acute Appendicitis Post-Op Diagnosis: Acute Appendicitis Case Staff Physician Calender Machine Operator Helper: Nadege Rossi Anesthesia Anesthesia Type: Local By Surgeon and General LMA/ETT 10 Specimen/Culture Specimen(s): 1. Appendix Culture(s): None Complications Complications: None
--- NOTE | 2024-03-31 15:27 | ROE_ITS ---
Operative Note Operative Note PRE-OP DIAGNOSIS: Appendicitis POST-OP DIAGNOSIS: same (There is purulent drainage in the pelvis. There is no manisha stool) PROCEDURE: Laparoscopic appendectomy Incidental repair of known umbilical hernia SURGEON: Seven Garcia VOCAL MUSIC INSTRUCTOR: Nadege Rossi ANESTHESIA TYPE: Local By Surgeon and General LMA/ETT Refer to Anesthesia Record ESTIMATED BLOOD LOSS: 10 PATHOLOGY: other COMPLICATIONS: None Patient was transported to: PACU Patient's condition: stable Procedure Description: The patient has signs and symptoms compatible with acute appendicitis and is brought to the OR for laparoscopic appendectomy, possible open procedure. Informed consent is obtained for the procedural (explained in simple layman's terms that the pt and/or family could understand) explaining risks vs benefits and alternatives to the procedure and consequences if we do not do the procedure. Risks include but are not limited to:bleeding,infections, pneumonia, blood clots/DVT/PE, anesthesia(aspiration, damage to teeth/airway/IL/CVA//prolonged mechanical ventilation/PTX/IV infections), damage to bowel, bladder,blood vessels, ureters. Damage to solid organs requiring removal. Infertility. Leakage from anastomosis requiring colostomy. Wound infections requirng further surgery. Scarring and disfigurement. Subsequent bowel obstructions from scar tissue. Possible open procedure if minimaly invsive procedure is being attempted. Abscess and stump appendicitis as well as others. DESCRIPTION OF PROCEDURE: The patient was brought to the operating room suite and placed in supine position. Anesthesia was administered per the Department of Anesthesia. A Gay catheter and OG tube are placed. The patient was prepped and draped in the usual sterile fashion using ChloraPrep scrub solution. Pause for the cause was done. 30 mL of 1% buffered was used for local anesthetization. He has a known umbilical hernia. A stab incision was made in the umbilicus and the Veress was inserted. Drop test was positive and insufflation was begun. When 15 mm of pressure was noted on the monitor, the Veress was removed, a #12 port inserted. Camera inserted through the port shows no damage to underlying structures. Bowel, liver and stomach that are visualized are normal in appearance. Pelvic organs are not visualized. The appendix is inflamed, erythematous,enlarged, & distened, but does not appear to have been ruptured. The tip is necrotic. There is purulent fluid in the pelvis. There is significant purulent membrane the surrounding small bowel and encapsulating fat. There is significant amount of visceral fat. A 12 mm port was then placed in the suprapubic position under direct visualization following creation of a local field block as well as a second 5 mm port in the LLQ. The ileum and surrounding fatty structures are dissected off the appendix. The appendix is quite necrotic. The appendix is elevated and a rent dissected into the mes entery. The base of the appendix is healthy and will hold juan. A Endo-CHRISTY stapler is placed across the base of the appendix and fired and 2nd stapler placed across the mesentery and fired. The appendix is placed in a bag and brought out. There is no bleeding or enteric leakage from the staple lines. The pt does require a drain due to the purulent material that was in the pelvis. The drain is placed in the right gutter and tucked down into the pelvis. There is no manisha stool in the abdomen. The abdomen was copiously irrigated with 2 liter of saline. All saline is evacuated. The fascia under the umbilical port and the hernia are closed with 0 Vicryl as well. So you are postmenopausal correct the fascia under the 12 mm port is closed with 0 Vicryl Endo Close device.. The scope and ports are removed. Pneumoperitoneum is evacuated. There was no bleeding from the port sites as when they removed and the pneumoperitoneum evacuated. The wounds were copiously irrigated and closed in 2 layers with 4-0 Monocryl.? Skin glue is used.? Sterile dressings are applied. The patient tolerated the procedure without complication, transferred to the recovery room in stable condition. Family was apprised of patient condition. Patient will be admitted to the hospital and kept overnight for antibiotics. SEVEN GARCIA, Date of Procedure: 03/31/24
--- NOTE | 2024-03-31 16:00 | RT.EKG_ITS ---
APPROVED REPORT Exam: Resting ECG Reason for Exam: ST changes in ED Patient Location: I HR:94 bpm ECG Measurements Heart Rate 94 AXIS [place] 148 P 62 QRSd 82 QRS 49 QT 322 T 22 QTc 403 Conclusion Sinus rhythm...normal P axis, V-rate 50- 99 Normal Electrocardiogram
--- NOTE | 2024-03-31 16:00 | W.ANESPOSTOP ---
Postoperative Evaluation Date, Time and Location Date Performed: 03/31/24 Time Performed: 16:00 Patient Location: PACU Vital Signs Most Recent Imported Vital Signs: Most Recent Vital Signs Temp Pulse Resp BP Pulse Ox 36.3 C L 101 H 19 131/71 95 03/31/24 15:40 03/31/24 15:51 03/31/24 15:51 03/31/24 15:51 03/31/24 15:51 Pain Score Most Recent Pain Score: Most Recent Pain Score Pain Level 0 03/31/24 15:35 Assessment Mental Status: Awake (Alert & Oriented to Patient Baseline) Airway and Respiratory Function: Patent airway with normal (patient baseline) respiratory exam Cardiovascular Function: Hemodynamically Stable Hydration Status: Adequately Hydrated Nausea & Vomiting: No Nausea or Vomiting Pain: Pt. Denies Any Pain Peripheral Nerve Block: Patient did not receive a nerve block
[2024-03-31 16:48] LABS: Troponin I 5 ng/L (<or=76)
[2024-03-31] MEDS: Acetaminophen 500 MG TAB 1000 MG PO ×2 (16:54→21:08)
[2024-03-31] MEDS: cefTRIAXone 1 GM/50 ML BAG IVPB (16:55)
--- NOTE | 2024-03-31 17:06 | W.PM.PROGNOT ---
Date of Service Date of service: 03/31/24 Time of Service: 17:14 Assessment and Plan Assessment and plan (1) S/P laparoscopic appendectomy: Status: Acute Assessment and plan: The patient is doing well post-op. Their pain is well controlled. They are having no nausea or vomiting. The pt is not having any chest pain or SOB, productive cough; no calf pain or swelling. The pt is making good urine. The pt pain is adequately controlled. The case was discussed with nursing and patient?s progress reviewed. All of the pt's home medications were addressed and adjusted accordingly for their oral intact status. HEENT: no jaundice. no eye pain/drainage/redness/swelling. Mild sore throat Cardio- NSR no chest pain, BP stable. Pulm: no sob or productive cough. no hemoptysis Incision- clean/dry. Dressing intact no excessive bleeding or drainage I discussed with the patient and/or there family about the findings in surgery and the pt's progress. We reviewed expectations for progress in the hospital; what the pt could expect for recovery time and length of stay. We discussed the importance of walking and pulmonary toilet to avoid blood clots and pneumonia. Continue current plans for pulmonary toilet, GI and DVT prophylaxis. We shall continue the current plan for pain management as it is at an appropriate level, and working well for the pt. Appropriate measures will be taken for constipation prevention, and this was also reviewed with the pt. The wound care plan was reviewed with nursing as well. Up walking tonight EKG/trop were negative tele -Pt was having problems w/ diarrhea preOp . ? is from [facility] see orders (2) Hypertension: Status: Chronic (3) Depressive disorder: Status: Chronic (4) Ventricular arrhythmia: Status: Acute (5) Hyperlipidemia: Status: Chronic (6) Diabetes mellitus: Status: Chronic (7) Obesity: Status: Chronic (8) Peptic reflux disease: Status: Chronic (9) Diarrhea: Status: Acute (10) Acute appendicitis: Status: Acute (11) Sleep apnea: Status: Acute Objective Last Vital Signs Temp 36.2 C L 03/31/24 17:04 Pulse 97 H 03/31/24 17:04 Resp 18 03/31/24 17:04 BP 132/84 03/31/24 17:04 Pulse Ox 93 03/31/24 17:04 Laboratory Results - last 24 hr 03/31/24 03/31/24 03/31/24 09:00 09:48 10:34 WBC 15.69 H RBC 6.11 H Hgb 18.2 H Hct 54.2 H MCV 89 MCH 29.8 MCHC 33.6 RDW 12.8 Plt Count 223 MPV 10.7 Immature Gran % 0.6 Neutrophils % 85.3 Lymphocytes % 5.7 Monocytes % 7.8 Eosinophils % 0.2 Basophils % 0.4 Nucleated RBC % 0.0 Absolute Neutrophils 13.38 H Absolute Lymphocytes 0.89 L Absolute Monocytes 1.22 H Absolute Eosinophils 0.03 Absolute Basophils 0.06 RBC Morphology Normal VBG pH 7.38 VBG pCO2 42 VBG pO2 44 VBG HCO3 25 VBG Total CO2 21 L VBG O2 Saturation 81 VBG Base Excess 0 VBG Lactate 1.4 Sodium 139 Potassium 4.6 Chloride 100 Carbon Dioxide 25.3 Anion Gap 13.7 H BUN 12 Creatinine 1.0 Est GFR (CKD-EPI 2020) 86.16 Glucose 192 H Calcium 9.2 Magnesium 2.1 Total Bilirubin 0.84 AST 21 ALT 42 Alkaline Phosphatase 117 H Troponin I 5 4 Total Protein 8.2 Albumin 4.3 Lipase 28 Urine Color Yellow Urine Clarity Clear Urine pH 6.0 Ur Specific [place] 1.010 Urine Protein Negative Urine Ketones >=160 H Urine Blood Negative Urine Nitrite Negative Urine Bilirubin Negative Urine Urobilinogen 0.2 Ur Leukocyte Esterase Negative Urine Glucose 500 H 03/31/24 03/31/24 12:10 16:22 WBC RBC Hgb Hct MCV MCH MCHC RDW Plt Count MPV Immature Gran % Neutrophils % Lymphocytes % Monocytes % Eosinophils % Basophils % Nucleated RBC % Absolute Neutrophils Absolute Lymphocytes Absolute Monocytes Absolute Eosinophils Absolute Basophils RBC Morphology VBG pH VBG pCO2 VBG pO2 VBG HCO3 VBG Total CO2 VBG O2 Saturation VBG Base Excess VBG Lactate Sodium Potassium Chloride Carbon Dioxide Anion Gap BUN Creatinine Est GFR (CKD-EPI 2020) Glucose Calcium Magnesium Total Bilirubin AST ALT Alkaline Phosphatase Troponin I 5 5 Total Protein Albumin Lipase Urine Color Urine Clarity Urine pH Ur Specific [place] Urine Protein Urine Ketones Urine Blood Urine Nitrite Urine Bilirubin Urine Urobilinogen Ur Leukocyte Esterase Urine Glucose Time Spent with Patient Time Spent with Patient: 25-34 minutes Time was spent: preparing to see the patient(eg.review tests), obtaining and/or reviewing separately [facility], ordering medications,tests, procedures, referring, communicating with other health plant health care technician, indepentently interpreting results, counseling the patient, care coordination and other
[2024-03-31] MEDS: Normal Saline 1,000 ML 75 ML IV (17:56)
[2024-03-31] MEDS: Pantoprazole 40 MG VIAL IVP (18:15)
[2024-03-31] MEDS: Heparin 5,000 UNITS/ML VIAL 5000 UNITS SC (18:17)
--- NOTE | 2024-03-31 18:59 | RESPIRATORY ---
Pt has NIV machine at home. He is unsure of whether he uses CPAP or BiPAP. No O2 at baseline. DME: [employer]. RT asked pt about use of hospital machine in the absence of his own unit. Pt declined to use hospital machine.
[2024-03-31] MEDS: Insulin Aspart 300 UNITS/3 ML PEN SC (21:06)
[2024-03-31] MEDS: risperiDONE 0.5 MG TAB 2 MG PO (21:07)
[2024-03-31] MEDS: Normal Saline Flush 10 ML SYR IVP (21:08)
[2024-03-31] MEDS: Gabapentin 300 MG CAP PO (21:08)
[2024-03-31] MEDS: Cyproheptadine 4 MG TAB PO (21:34)
[2024-04-01] VITALS (10 sets, daily range): BP systolic 103–132; BP diastolic 65–72; PULSE 76–81; RESP 15–22; TEMP 36.2–37; O2SAT 16–99
[2024-04-01] MEDS: metroNIDAZOLE 500 MG/100 ML BAG 100 MG IVPB ×5 (00:02→23:05)
[2024-04-01] MEDS: MORPHine 2 MG/ML SYR IVP ×2 (00:08→11:40)
[2024-04-01] MEDS: Acetaminophen 500 MG TAB 1000 MG PO ×4 (05:10→23:05)
[2024-04-01] MEDS: Heparin 5,000 UNITS/ML VIAL 5000 UNITS SC ×2 (05:10→17:17)
[2024-04-01 06:30] LABS: Abs Immature Grans 0.11 10^3/uL (0.0-0.06); Absolute Basophil Count 0.01 10^3/uL (0.0-0.2); Absolute Eosinophil Count 0.01 10^3/uL (0.0-0.7); Absolute Neutrophil Count 12.03 10^3/uL (1.2-6.7); Basophils % 0.1 %; Eosinophils % 0.1 %; HCT 49.7 % (40.0-50.0); HGB 16.4 g/dL (13.5-17.5); Immature Grans % 0.8 %; Lymphocytes % 7.5 %; MCH 30.3 pg (27.0-33.0); MCV 92 fL (80-95); MPV 10.5 fL (8.0-11.0); Monocytes % 8.2 %; Neutrophils % 83.3 %; Platelet Count 211 10^3/uL (130-400); RBC 5.42 10^6/uL (4.36-5.78); RDW 13.1 % (11.8-14.1); RDW-SD 44.6 fL; WBC 14.44 10^3/uL (4.4-10.8)
[2024-04-01 06:31] LABS: Absolute Lymphocyte Count 1.08 10^3/uL (1.2-3.4); Absolute Monocyte Count 1.18 10^3/uL (0.1-0.8)
[2024-04-01 06:52] LABS: Anion Gap 14.4 mmol/L (3-11); BUN 13 mg/dL (7-18); C-Reactive Protein 16.02 mg/dL (<or=0.5); CO2 22.6 mmol/L (21.0-32.0); CREATININE 0.9 mg/dL (0.70-1.30); Calcium 8.7 mg/dL (8.5-10.1); Chloride 103 mmol/L (98-107); Estimated GFR 97.78 (mL/min/1.73m2); Glucose 137 mg/dL (74-106); Potassium 4.9 mmol/L (3.5-5.1); Sodium 140 mmol/L (136-145); Troponin I 5 ng/L (<or=76)
--- NOTE | 2024-04-01 08:00 | RT.EKG_ITS ---
APPROVED REPORT Exam: Resting ECG Reason for Exam: few no specific ST changes in OR Patient Location: I HR:80 bpm ECG Measurements Heart Rate 80 AXIS [place] 147 P 58 QRSd 89 QRS 41 QT 367 T 0 QTc 424 Conclusion Sinus rhythm...normal P axis, V-rate 50- 99 Normal Electrocardiogram
[2024-04-01] MEDS: Venlafaxine 75 MG CAPCR PO (08:22)
[2024-04-01] MEDS: Metoprolol CR 25 MG TABCR PO (08:22)
[2024-04-01] MEDS: risperiDONE 0.5 MG TAB 2 MG PO ×2 (08:22→19:34)
[2024-04-01] MEDS: Lisinopril 10 MG TAB PO (08:22)
[2024-04-01] MEDS: Gabapentin 300 MG CAP PO ×2 (08:22→19:34)
[2024-04-01] MEDS: Aspirin E.C. 81 MG TABEC PO (08:23)
[2024-04-01] MEDS: Normal Saline Flush 10 ML SYR IVP ×3 (08:23→19:36)
[2024-04-01] MEDS: Allopurinol 300 MG TAB PO (08:23)
[2024-04-01] MEDS: Venlafaxine 37.5 MG CAPCR PO (08:23)
[2024-04-01] MEDS: traMADol 50 MG TAB PO (08:31)
--- NOTE | 2024-04-01 11:30 | INITIAL_ITS ---
Date of service: 04/01/24 Time of Service: 11:30 Care Management Initial Assmt Advance Directives Advance Directives: Do you have an Advance Directive: Y 03/23/24 16:44 AD On File at [facility]: Y 03/23/24 16:44 Date Asked 03/23/24 03/23/24 16:44 AD Date Reviewed 03/23/24 03/23/24 16:44 COLST On File at [facility] No 03/23/24 16:44 COLST Date Scanned Code Status Resuscitation Status Full Code Care Team Visit Care Team Role Provider Type Alvaro Lee Primary Care Provider NON-[facility] STAFF PHYSICIAN CARTER Whitman Emergency Provider PH[employer] MEDIA MARKETING ANALYST Trina Ibarra DO Admit Provider OSTEOPATHIC DOCTOR Attending Provider [facility] All Active Problems (Updated 03/31/24 @ 12:50 by Trina Ibarra DO) S/P laparoscopic appendectomy (Acute) Illiterate (Acute) Acute appendicitis (Acute) Bilateral inguinal hernia without obstruction or gangrene (Acute) Edentulous (Acute) Former smoker (Acute) Diarrhea (Acute) Hallucinations (Acute) Worsening headaches (Acute) Rotator cuff tear, right (Acute) Arm pain (Acute) Low back pain (Acute) Wears hearing aid in both ears (Acute) Tubular adenoma of colon (Acute) Abdominal pain (Acute) Obesity (Chronic) Left leg numbness (Acute) Right leg numbness (Acute) COVID-19 (Acute) 09/05/21 Vaccinated, booster 03/25/21 Anterior epistaxis (Acute) Encounter for screening colonoscopy (Acute) Facial pain (Acute) Bilateral impacted cerumen (Acute) Fall (Acute) Abnormal stress test (Acute) ischemic changes in inferior and lateral leads - needs cath LFT elevation (Acute) Chest pressure (Acute) Sleep apnea (Acute) Encounter for annual physical exam (Acute) Tachycardia (Acute) Sinus pain (Acute) Migraine headache without aura (Acute) Conductive hearing loss, external ear (Acute) Carpal tunnel syndrome (Acute) Foot pain (Acute) Ventricular arrhythmia (Acute 12/16/06) Vivid dream (Acute 02/08/17) Sensorineural hearing loss (SNHL), bilateral (Chronic) Chronic left-sided low back pain with left-sided sciatica (Acute) Unspecified intellectual disabilities (Chronic) IQ-53 Syrinx of spinal cord (Chronic 06/13/17) Reduced libido (Chronic 04/01/11) Peptic reflux disease (Chronic) Multiple somatic complaints (Chronic) Hyperlipidemia (Chronic 09/19/12) Gout (Chronic 06/08/17) Essential hypertension (Chronic 05/18/13) Diabetes mellitus (Chronic 09/19/12) Depressive disorder (Chronic) with psychotic features hears voices DISH (diffuse idiopathic skeletal hyperostosis) (Chronic 03/09/17) Carotid stenosis, right (Chronic 07/01/16) per ulatrsound May 2016. Asymptomatic. Needs yearly ultrasound follow-up. 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) CVA (cerebral vascular accident) Surgical History History of esophagogastroduodenoscopy History of shoulder surgery History of tooth extraction Status post wrist surgery S/P wrist surgery 04/18/09 H/O esophagogastroduodenoscopy 02/16/11 H/O tooth extraction 04/18/89 H/O tooth extraction 04/18/89 WRIST SURGERY (~04/2009) SHOULDER SURGERY (~04/2009) EXTRACTION, TEETH (~12/1989) EGD - MAC (~02/2011) Colonoscopy - MAC (~02/2011) 04/2022 Family History Mother , AGE 56 Essential hypertension Leukemia Stomach cancer Father , AGE 85 Essential hypertension Depression Stroke Alcohol abuse A-fib Heart disease Sister Essential hypertension Heart disease Hyperlipidemia Sister Essential hypertension Cancer skin Sister No problems noted. Maternal Grandfather , AGE 68 Essential hypertension Heart disease Paternal Grandfather , AGE 83 Essential hypertension Stomach cancer Colon cancer Maternal Grandmother , AGE 89 Asthma Paternal Grandmother , AGE 84 Stroke Asthma Social History Smoking/Tobacco Use Status: Former Tobacco Use tobacco type: cigarettes Quit Date: 04/18/81 Tobacco: How many years used: 35 Smokeless tobacco user: chewing tobacco Second Hand Exposure: Yes Smoking risk assessment performed?: Yes Alcohol Intake: never Drug use: Never Substance use type: does not use Caregiver/Support person: No Household members: spouse Housing: house Communication Needs: Hard of Hearing, Corrective Lenses and Cannot Read Do you need help understanding health information?: Rarely 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 Pets and animals: Yes Pets and animals: cat(s) Sexually active: No Do you think of yourself as: straight/heterosexual Current gender identity: male What is your relationship status?: How often do you talk on the phone with friends or family?: three or more times per week How often do you get together with friends or relatives?: once per week How often do you attend yarsani or rastafarian services?: 1-3 times per year Do you belong to any clubs or organized social groups?: no Panel score (0-1 are the most socially isolated patients): 2 What type of physical activity do you participate in: walking and aerobic Duration: 15-30 minutes/day Frequency: 3-4 times per week Tatianna/Zoroastrian: Temple Special tatianna needs: No Seatbelt use: always Helmet use: No Drive intox or ride w/intox septic pump truck driver: No Do you feel safe at home: Yes Victim of physical abuse: No Victim of emotional abuse: No Victim of sexual abuse: No Would you like helpful sources: No Additional Social history: unble to assess privately SDOH(Care Management) Screening Will the Patient Participate in the Screening?: Unable to obtain
--- NOTE | 2024-04-01 13:58 | PGE_ITS ---
Date of Service Date of service: 04/01/24 Time of Service: 13:58 Assessment and Plan Assessment and plan (1) Anxiety: Status: Chronic (2) Depressive disorder: Status: Chronic (3) Alcohol intake above recommended sensible limits: Status: Chronic (4) Hypertension: Status: Chronic (5) Essential hypertension: Status: Chronic (6) Hyperlipidemia: Status: Chronic (7) Diabetes mellitus: Status: Chronic Assessment and plan: Regular diabetic diet Resumed oral meds-glipizide and Jardiance. Should not require any further insulin (8) Obesity: Status: Chronic (9) Peptic reflux disease: Status: Chronic Assessment and plan: Protonix (10) Acute appendicitis: Status: Acute Assessment and plan: Postop day 1 status post laparoscopic appendectomy with suppurative appendicitis and purulent discharge in the abdomen. Antibiotics: Ceftriaxone and Flagyl DVT prophylaxis is heparin Protonix for GI prophylaxis Pulm [place] toilet and patient is up walking around. He was hypoxic postop. This is resolved today. He is still running a white count.see labs in [facility]. Repeat labs in AM. If continue to trend down then we will plan DC tomorrow Consider home PT Should be able to remove drain prior to discharge (11) Migraine headache without aura: Status: Acute (12) Unspecified intellectual disabilities: Status: Chronic (13) Sleep apnea: Status: Acute (14) Illiterate: Status: Acute (15) Former smoker: Status: Acute (16) Fecal incontinence: Status: Acute (17) Generalized weakness: Status: Acute Assessment and plan: Will have a PT evaluation and see if he needs any PT upon discharge. (18) Postoperative hypoxia: Status: Acute Assessment and plan: Patient is on room air. Sats are running around 93% patient denies any chest pain shortness of breath or productive cough Does have significant sleep apnea and is on CPAP at home. I do not know how old his machine is or what when the the last time he had a sleep eval Subjective Subjective Interval history since last seen: Patient is seen and examined: they are doing well. THey have : no headaches. No CP or SOB. no productive cough. no dysuria. no leg pain or swelling. He has been up walking around. He is tolerating a regular diet. He has minimal output from his JIMMY. He has not moved his bowels yet. Exam Narrative Exam Narrative: PHYSICAL EXAM GENERAL APPEARANCE: Alert, healthy appearance, oriented, x 3,? in no acute distress HYDRATION: Well hydrated HEAD, EYES, EARS, NECK, THROAT: Head is normocephalic, pupils equal, round, reactive to light and accommodation, ocular movement intact, sclera clear and no jaundice. ?Dentition - nnone. No sore throat.? No jaw pain. No thrush LUNGS: normal respiration/normal chest excursion. ?Clear to auscultation bilaterally. ?No wheeze. ?HEART: Regular rate and rhythm. no murmurs EXTREMITY: No edema or cyanosis.? no leg pain, redness, swelling.? He has a good pulse on his left foot. He does not have a strong put pulse on his right foot ABDOMEN: Incisions are clean dry and intact. Abdomen is somewhat protuberant. He has good bowel sounds. He has minimal serous drainage from his JIMMY drain. The site is clean dry and intact Objective Last Vital Signs Temp 36.8 C 04/01/24 11:23 Pulse 76 04/01/24 11:23 Resp 22 04/01/24 11:23 BP 129/72 04/01/24 11:23 Pulse Ox 95 04/01/24 11:23 Laboratory Results - last 24 hr 03/31/24 04/01/24 16:22 06:24 WBC 14.44 H RBC 5.42 Hgb 16.4 Hct 49.7 MCV 92 MCH 30.3 MCHC 33.0 RDW 13.1 Plt Count 211 MPV 10.5 Immature Gran % 0.8 Neutrophils % 83.3 Lymphocytes % 7.5 Monocytes % 8.2 Eosinophils % 0.1 Basophils % 0.1 Nucleated RBC % 0.0 Absolute Neutrophils 12.03 H Absolute Lymphocytes 1.08 L Absolute Monocytes 1.18 H Absolute Eosinophils 0.01 Absolute Basophils 0.01 Sodium 140 Potassium 4.9 Chloride 103 Carbon Dioxide 22.6 Anion Gap 14.4 H BUN 13 Creatinine 0.9 Est GFR (CKD-EPI 2020) 97.78 Glucose 137 H Calcium 8.7 Troponin I 5 5 C-Reactive Protein 16.02 H Time Spent with Patient Time Spent with Patient: 25-34 minutes Time was spent: preparing to see the patient(eg.review tests), obtaining and/or reviewing separately otained hiistory, ordering medications,tests, procedures, referring, communicating with other health resident care assistant, indepentently interpreting results, counseling the patient, care coordination and other
[2024-04-01] MEDS: Polyethylene Glycol 3350 17 GM PACKET PO (15:43)
[2024-04-01] MEDS: cefTRIAXone 1 GM/50 ML BAG IVPB (15:43)
--- NOTE | 2024-04-01 15:56 | W.PM.DS.N ---
Date of service: 04/02/24 DS: Diagnosis Discharge Diagnosis (1) Anxiety: Status: Chronic (2) Depressive disorder: Status: Chronic (3) Alcohol intake above recommended sensible limits: Status: Chronic (4) Hypertension: Status: Chronic (5) Essential hypertension: Status: Chronic (6) Hyperlipidemia: Status: Chronic (7) Diabetes mellitus: Status: Chronic (8) Obesity: Status: Chronic (9) Peptic reflux disease: Status: Chronic (10) Acute appendicitis: Status: Acute (11) Migraine headache without aura: Status: Acute (12) Unspecified intellectual disabilities: Status: Chronic (13) Sleep apnea: Status: Acute (14) Illiterate: Status: Acute (15) Former smoker: Status: Acute (16) Fecal incontinence: Status: Acute (17) Generalized weakness: Status: Acute (18) Postoperative hypoxia: Status: Acute Discharge Plan Disposition Condition: Improving Discharge Details Reason For Visit: Abd/stomach pain/vomiting Admit Date/Time: 03/31/24 15:45 Admit Provider: Trina Ibarra Attending Provider: Trina Ibarra Primary Care Provider: Alvaro Lee Hospital Course Hospital Course: see addendum Home Meds and New Rx's Prescriptions: New tramadol 50 mg tablet 50 mg PO Q4H PRNQty: 14 0RF Bio-K plus 50 billion cell capsule,delayed release(DR/EC) 1 cap PO DAILY Qty: 30 0RF amoxicillin-pot clavulanate 875-125 mg tablet 1 tab PO Q12H 4 Days Qty: 8 0RF Rx Instructions: Yogurt daily while taking antibiotics Continued aspirin 81 mg tablet,delayed release (DR/EC) 81 mg PO DAILY cyproheptadine 4 mg tablet See Rx Instructions PO HS Qty: 180 3RF Rx Instructions: Take 4 mg at bedtime every night. Ok to take an additional 4 mg tab once daily as needed for headaches. venlafaxine 37.5 mg capsule,extended release 24hr 37.5 mg PO DAILY (DME) blood-glucose meter Mis See Dose Instructions .ROUTE .MEDSUPPLY Qty: 1 0RF Dose Instruction: As directed Rx Instructions: One touch verio E11.9 Once daily testing Balanced B-100 Complex 100 mg tablet extended release 1 tab PO DAILY Jardiance 25 mg tablet 25 mg PO QAM Qty: 90 5RF glipizide 10 mg tablet extended release 24hr See Rx Instructions .ROUTE .COMPLEX Qty: 90 5RF Dose Instruction: TAKE 1 TABLET BY MOUTH DAILY Rx Instructions: TAKE 1 TABLET BY MOUTH DAILY metoprolol succinate 25 mg tablet extended release 24 hr 25 mg PO DAILY risperidone [Risperdal] 2 mg tablet 2 mg PO BID multivitamin 1 EACH tablet 1 tab PO DAILY (DME) lancets [FreeStyle Lancets] 28 gauge misc See Rx Instructions .ROUTE .MEDSUPPLY Qty: 100 5RF Rx Instructions: daily testing E11.9. One Touch Verio Lancets rosuvastatin 10 mg tablet 10 mg PO HS Qty: 90 6RF nystatin 100,000 unit/gram cream 1 - 2 applic TP BID PRN (Reason: rash) Qty: 30 0RF (DME) Blood Glucose Test Strip See Rx Instructions .ROUTE .MEDSUPPLY Qty: 100 7RF Rx Instructions: One Touch Verio test strips E11.9. Test daily (DME) lancets [OneTouch Delica Lancets] 33 gauge misc See Rx Instructions .ROUTE DAILY Qty: 100 5RF Rx Instructions: E11.9 daily lisinopril 10 mg tablet 10 mg PO DAILY Qty: 90 4RF allopurinol 300 mg tablet 300 mg PO DAILY Qty: 90 4RF venlafaxine 75 mg capsule,extended release 24hr 75 mg PO DAILY Qty: 90 5RF gabapentin 300 mg capsule 300 mg PO BID Qty: 180 5RF esomeprazole magnesium [Nexium] 20 mg capsule,delayed release(DR/EC) 20 mg PO HS Qty: 90 3RF naproxen sodium [Aleve] 220 MG tablet 220 mg PO BID PRN Discharge Instructions Additional Instructions: Keep an ice bag on the incision. 20 minutes on and 20 minutes off. Ice keeps the swelling down and swelling causes pain. Make sure you wrap the ice pack in a towel and don't apply directly to the skin. -No driving for 3 days or of you are taking narcotic pain medications. [facility] Surgery Clinic: [phone] -Follow-up with Dr. Ibarra in 1 week. -soft diet: No beef/pork raw vegetables x1 -week. Cooked vegetables are fine -no straining to move bowels -pain meds are very constipating: if you do not move your bowels daily take a dose of OTC Miralax -It is ok to shower. No bathe, soaking, swimming or hot tubs. Shower daily. -Keep wound clean and dry. Wash incision with soap and water daily. Pat dry, don't rub. -You may find that your appetite is smaller. Eat 3-6 small meals throughout the day. It is important to drink lots of water after surgery, 6-10 glasses a day. -If you were given an incentive spirometry (breathing delivery and installation subcontractor?), continue to do this 10x/hour while awake. -We do want you up walking, at least 5-6 times per day. This is very important to prevent pneumonia and blood clots. You can climb stairs, take them slowly. -No lifting over 5 pounds. This is very important to avoid developing a hernia in your incision. -You may find that you are very tired after surgery- this is normal. ? MEDICATIONS: Alternate Tylenol 1000mg by mouth every 8 hours and Ibuprofen 600mg every 6 hours. ?Make sure you take ibuprofen with food and not on an empty stomach. ?Take the Tylenol and ibuprofen continuously for the first 72hrs- not just when you have pain.? Use the tramadol for breakthrough pain/pain >7.? Use ICE!?? Twenty minutes on, and then off, continuously for the first 72hours. If you are taking narcotic pain medication, follow the instructions on the label and do not drive. Pain medications can make you very constipated. Make sure you are moving your bowels daily. If not, take Miralax or Milk of Magnesia.?? Activity:: see above Activity:: see above Equipment/Supplies:: No Equipment Needed Diet:: Carb Counting DS: Summary Quality:[facility] Health Related Social Needs: No Data to Display DS: Data Vitals/I&O Vitals and I&O: Vital Signs Temperature 37.0 C 04/01/24 15:08 Temperature Source Temporal Artery Scan 04/01/24 15:08 Pulse 76 04/01/24 15:08 Pulse 100 H 03/31/24 16:06 Respiratory Rate 15 04/01/24 15:08 Respiratory Effort Normal, Non-Labored 03/31/24 16:33 Respiratory Depth Normal 03/31/24 16:33 Respiratory Pattern Normal 12/14/24 16:33 Blood Pressure 103/65 12/15/24 15:08 Blood Pressure Mean 87 03/31/24 16:06 Blood Pressure Position Sitting 03/31/24 08:27 Pulse Oximetry 16 L 04/01/24 15:08 Respiratory End-tidal CO2 46 03/31/24 16:08 Oxygen Delivery Method Room Air 04/01/24 15:08 Oxygen Flow Rate 0 04/01/24 15:08 Pain Level 5 04/01/24 15:43 Comment RN Notified 03/31/24 20:48 Intake & Output 03/31/24 04/01/24 04/01/24 23:59 11:59 23:59 Intake Total 2210 / 3230 1919 / 2019 Output Total 1500 / 1500 2044 Balance 710 / 1730 -125 / -25 100 / -25 Weight 120.8 kg Intake: IV 2210 / 3230 1220 / 1320 100 / 1320 Oral 700 / 700 Output: Drainage 20 Left Lower Abdomen Urine 1475 / 1475 2024 Other: Urine Color Yellow Yellow Bright Red Urine Appearance Clear Clear Urine Odor Normal Normal Comment small bright red clot noted will notify primary nurse Emesis Description None Data Completed and Pending Labs on day of discharge: Labs from last 24 hours 04/01/24 03/31/24 06:24 16:22 WBC 14.44 H RBC 5.42 Hgb 16.4 Hct 49.7 MCV 92 MCH 30.3 MCHC 33.0 RDW 13.1 Plt Count 211 MPV 10.5 Immature Gran % 0.8 Neutrophils % 83.3 Lymphocytes % 7.5 Monocytes % 8.2 Eosinophils % 0.1 Basophils % 0.1 Nucleated RBC % 0.0 Absolute Neutrophils 12.03 H Absolute Lymphocytes 1.08 L Absolute Monocytes 1.18 H Absolute Eosinophils 0.01 Absolute Basophils 0.01 Sodium 140 Potassium 4.9 Chloride 103 Carbon Dioxide 22.6 Anion Gap 14.4 H BUN 13 Creatinine 0.9 Est GFR (CKD-EPI 2020) 97.78 Glucose 137 H Calcium 8.7 Troponin I 5 5 C-Reactive Protein 16.02 H Preliminary micro results at discharge 03/31/24 11:28 Blood Culture - Preliminary Blood NO GROWTH 24 HOURS 03/31/24 11:15 Blood Culture - Preliminary Blood NO GROWTH 24 HOURS PFSH All Active Problems (Updated 04/01/24 @ 15:44 by Trina Ibarra DO) Postoperative hypoxia (Acute) Generalized weakness (Acute) Fecal incontinence (Acute) Illiterate (Acute) Acute appendicitis (Acute) Bilateral inguinal hernia without obstruction or gangrene (Acute) Edentulous (Acute) Former smoker (Acute) Diarrhea (Acute) Hallucinations (Acute) Worsening headaches (Acute) Rotator cuff tear, right (Acute) Arm pain (Acute) Low back pain (Acute) Wears hearing aid in both ears (Acute) Tubular adenoma of colon (Acute) Abdominal pain (Acute) Obesity (Chronic) Left leg numbness (Acute) Right leg numbness (Acute) COVID-19 (Acute) 09/05/21 Vaccinated, booster 03/25/21 Anterior epistaxis (Acute) Facial pain (Acute) Bilateral impacted cerumen (Acute) Fall (Acute) Abnormal stress test (Acute) ischemic changes in inferior and lateral leads - needs cath LFT elevation (Acute) Chest pressure (Acute) Sleep apnea (Acute) Encounter for annual physical exam (Acute) Tachycardia (Acute) Sinus pain (Acute) Migraine headache without aura (Acute) Conductive hearing loss, external ear (Acute) Carpal tunnel syndrome (Acute) Foot pain (Acute) Ventricular arrhythmia (Acute 12/16/06) Vivid dream (Acute 02/08/17) Sensorineural hearing loss (SNHL), bilateral (Chronic) Chronic left-sided low back pain with left-sided sciatica (Acute) Unspecified intellectual disabilities (Chronic) IQ-53 Syrinx of spinal cord (Chronic 06/13/17) Reduced libido (Chronic 04/01/11) Peptic reflux disease (Chronic) Multiple somatic complaints (Chronic) Hyperlipidemia (Chronic 09/19/12) Gout (Chronic 06/08/17) Essential hypertension (Chronic 05/18/13) Diabetes mellitus (Chronic 09/19/12) Depressive disorder (Chronic) with psychotic features hears voices DISH (diffuse idiopathic skeletal hyperostosis) (Chronic 03/09/17) Carotid stenosis, right (Chronic 07/01/16) per ulatrsound May 2016. Asymptomatic. Needs yearly ultrasound follow-up. 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) CVA (cerebral vascular accident) Surgical History (Updated 04/01/24 @ 13:59 by Trina Ibarra DO) S/P laparoscopic appendectomy History of esophagogastroduodenoscopy History of shoulder surgery History of tooth extraction Status post wrist surgery S/P wrist surgery 04/18/09 H/O esophagogastroduodenoscopy 02/16/11 H/O tooth extraction 04/18/89 H/O tooth extraction 04/18/89 WRIST SURGERY (~04/2009) SHOULDER SURGERY (~04/2009) EXTRACTION, TEETH (~12/1989) EGD - MAC (~02/2011) Colonoscopy - MAC (~02/2011) 04/2022 Family History Mother , AGE 56 Essential hypertension Leukemia Stomach cancer Father , AGE 85 Essential hypertension Depression Stroke Alcohol abuse A-fib Heart disease Sister Essential hypertension Heart disease Hyperlipidemia Sister Essential hypertension Cancer skin Sister No problems noted. Maternal Grandfather , AGE 68 Essential hypertension Heart disease Paternal Grandfather , AGE 83 Essential hypertension Stomach cancer Colon cancer Maternal Grandmother , AGE 89 Asthma Paternal Grandmother , AGE 84 Stroke Asthma Social History Smoking/Tobacco Use Status: Former Tobacco Use tobacco type: cigarettes Quit Date: 04/18/81 Tobacco: How many years used: 35 Smokeless tobacco user: chewing tobacco Second Hand Exposure: Yes Smoking risk assessment performed?: Yes Alcohol Intake: never Drug use: Never Substance use type: does not use Caregiver/Support person: No Household members: spouse Housing: house Communication Needs: Hard of Hearing, Corrective Lenses and Cannot Read Do you need help understanding health information?: Rarely 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 Pets and animals: Yes Pets and animals: cat(s) Sexually active: No Do you think of yourself as: straight/heterosexual Current gender identity: male What is your relationship status?: How often do you talk on the phone with friends or family?: three or more times per week How often do you get together with friends or relatives?: once per week How often do you attend roman catholic or restorationism services?: 1-3 times per year Do you belong to any clubs or organized social groups?: no Panel score (0-1 are the most socially isolated patients): 2 What type of physical activity do you participate in: walking and aerobic Duration: 15-30 minutes/day Frequency: 3-4 times per week Tatianna/Zoroastrianism: Orthodox Special tatianna needs: No Seatbelt use: always Helmet use: No Drive intox or ride w/intox petroleum transport driver: No Do you feel safe at home: Yes Victim of physical abuse: No Victim of emotional abuse: No Victim of sexual abuse: No Would you like helpful sources: No Additional Social history: unble to assess privately
[2024-04-01] MEDS: Pantoprazole 40 MG VIAL IVP (17:17)
[2024-04-01] MEDS: Cyproheptadine 4 MG TAB PO (19:34)
[2024-04-02 02:59] VITALS: BP 117/77; PULSE 77; RESP 18; TEMP 36.2; O2SAT 95
[2024-04-02] MEDS: Acetaminophen 500 MG TAB 1000 MG PO ×2 (05:05→09:28)
[2024-04-02] MEDS: metroNIDAZOLE 500 MG/100 ML BAG 100 MG IVPB ×2 (05:06→11:31)
[2024-04-02] MEDS: Heparin 5,000 UNITS/ML VIAL 5000 UNITS SC (05:06)
[2024-04-02 06:39] LABS: Abs Immature Grans 0.05 10^3/uL (0.0-0.06); Absolute Basophil Count 0.05 10^3/uL (0.0-0.2); Absolute Eosinophil Count 0.23 10^3/uL (0.0-0.7); Absolute Lymphocyte Count 1.62 10^3/uL (1.2-3.4); Absolute Monocyte Count 1.27 10^3/uL (0.1-0.8); Basophils % 0.5 %; Eosinophils % 2.2 %; HCT 47.3 % (40.0-50.0); HGB 15.5 g/dL (13.5-17.5); Immature Grans % 0.5 %; Lymphocytes % 15.7 %; MCH 29.8 pg (27.0-33.0); MCHC 32.8 % (32.0-36.0); MCV 91 fL (80-95); MPV 10.7 fL (8.0-11.0); Monocytes % 12.3 %; Neutrophils % 68.8 %; Platelet Count 203 10^3/uL (130-400); RBC 5.21 10^6/uL (4.36-5.78); RDW 13.1 % (11.8-14.1); RDW-SD 44.3 fL; WBC 10.32 10^3/uL (4.4-10.8)
[2024-04-02 07:14] LABS: C-Reactive Protein 6.76 mg/dL (<or=0.5)
[2024-04-02 07:38] VITALS: BP 126/74; PULSE 67; RESP 16; TEMP 36.2; O2SAT 96
[2024-04-02] MEDS: Lisinopril 10 MG TAB PO (07:45)
[2024-04-02] MEDS: Gabapentin 300 MG CAP PO (07:45)
[2024-04-02] MEDS: Venlafaxine 75 MG CAPCR PO (07:45)
[2024-04-02] MEDS: Empaglifozin 25 MG TAB PO (07:45)
[2024-04-02] MEDS: Venlafaxine 37.5 MG CAPCR PO (07:45)
[2024-04-02] MEDS: Metoprolol CR 25 MG TABCR PO (07:45)
[2024-04-02] MEDS: Allopurinol 300 MG TAB PO (07:46)
[2024-04-02] MEDS: Aspirin E.C. 81 MG TABEC PO (07:46)
[2024-04-02] MEDS: Normal Saline Flush 10 ML SYR IVP (07:46)
[2024-04-02 08:35] VITALS: O2SAT 95
[2024-04-02] MEDS: risperiDONE 0.5 MG TAB 2 MG PO (09:27)
--- NOTE | 2024-04-02 09:27 | PT.INIE ---
PT Notes Visit Reasons: Abd/stomach pain/vomiting Physical Therapy Inpatient Initial Evaluation Date: 04/02/2024 Referring Doctor: Trina Iabrra MD PT Orders: PT CONSULT: s/p appy. generlaized weakness/walking issues Precautions: Fall. Standard. Activity as tolerated. Patient Profile/Admitting Diagnosis: Ozzie is a 58-year-old male patient S/P appendectomy on postoperative day 2 with referral sent for safety assessment for discharge. PMHX: All Active Problems (Updated 03/31/24 @ 12:50 by Trina Ibarra, ) Illiterate (Acute) Acute appendicitis (Acute) Bilateral inguinal hernia without obstruction or gangrene (Acute) Edentulous (Acute) Former smoker (Acute) Diarrhea (Acute) Hallucinations (Acute) Worsening headaches (Acute) Rotator cuff tear, right (Acute) Arm pain (Acute) Low back pain (Acute) Wears hearing aid in both ears (Acute) Tubular adenoma of colon (Acute) Abdominal pain (Acute) Obesity (Chronic) Left leg numbness (Acute) Right leg numbness (Acute) COVID-19 (Acute) 09/05/21 Vaccinated, booster 03/25/21Anterior epistaxis (Acute) Encounter for screening colonoscopy (Acute) Facial pain (Acute) Bilateral impacted cerumen (Acute) Fall (Acute) Abnormal stress test (Acute) ischemic changes in inferior and lateral leads - needs cath LFT elevation (Acute) Chest pressure (Acute) Sleep apnea (Acute) Encounter for annual physical exam (Acute) Tachycardia (Acute) Sinus pain (Acute) Migraine headache without aura (Acute) Conductive hearing loss, external ear (Acute) Carpal tunnel syndrome (Acute) Foot pain (Acute) Ventricular arrhythmia (Acute 12/16/06) Vivid dream (Acute 02/08/17) Sensorineural hearing loss (SNHL), bilateral (Chronic) Chronic left-sided low back pain with left-sided sciatica (Acute) Unspecified intellectual disabilities (Chronic) IQ-53 Syrinx of spinal cord (Chronic 06/13/17) Reduced libido (Chronic 04/01/11) Peptic reflux disease (Chronic) Multiple somatic complaints (Chronic) Hyperlipidemia (Chronic 09/19/12) Gout (Chronic 06/08/17) Essential hypertension (Chronic 05/18/13) Diabetes mellitus (Chronic 09/19/12) Depressive disorder (Chronic) with psychotic features hears voices DISH (diffuse idiopathic skeletal hyperostosis) (Chronic 03/09/17) Carotid stenosis, right (Chronic 07/01/16) per ulatrsomary May 2016. Asymptomatic. Needs yearly ultrasound follow-up. 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 Independent without AD. On disability. Equipment Owned/DME: None Subjective: No complaint of headache, chest pain, nausea, and lightheadedness throughout session. Objective: General Observation: Seated on bedside chair. Dressing over surgical incision. Telemetry monitoring in place. Mental Status: Alert and oriented as to person, place, time, and purpose. Able to pay attention, focus, and respond appropriately. Pain: 3-4/10 in the R LLQ Vital Signs: Closely monitored by nursing staff ROM: Right Lower Extremity: Hip flexion WFL. Hip abduction WFL. Knee flexion WFL. Ankle dorsiflexion WFL. Ankle plantarflexion WFL. Left Lower Extremity: Hip flexion WFL. Hip abduction WFL. Knee flexion WFL. Ankle dorsiflexion WFL. Ankle plantarflexion WFL. Strength: Right Lower Extremity: Hip flexors 4/5. Hip abductors 4/5. Knee flexors 5/5. Knee extensors 5/5. Ankle dorsiflexors 5/5. Ankle plantarflexors 5/5. Left Lower Extremity: Hip flexors 5/5. Hip abductors 5/5. Knee flexors 5/5. Knee extensors 5/5. Ankle dorsiflexors 5/5. Ankle plantarflexors 5/5. Bed Mobility/Transfers: Supine to sit independent Sit to supine independent Sit to stand independent Stand to sit independent Bed to bedside commode independent Bedside commode to bed independent Bed to reclining chair independent Reclining chair to bed independent Gait: 600 feet with no assistive device. No LOB. Mild SOB that resolved with rest. Pain stayed at 3-4/10 throughout session. No nausea, lightheadedness, headache reported. Balance: Static Sitting: Normal Dynamic Sitting: Normal Static Standing: Normal Dynamic Standing: Good Special Tests: Mobility Limitations Standardized Measure [facility]-PAC 6 clicks Basic Mobility Inpatient Short Form: Raw Score: 24 CMS Score: 0% deficit Informed Consent/Education: Patient was instructed in purpose of PT consult. Assessment: Patient at beseline mobility level without needing mobility device. Patient presents with clinical signs and symptoms consistent with current/admitting diagnoses that have resulted to mobility limitations, gait instability, generalized weakness, and overall ADL decline as demonstrated by the following impairment level findings: 1. Pain in R LLQ at 3-4/10 Impairments are contributing to the following functional limitations: 1. Increased completion time for mobility ADL performance Patient is assessed [place] a 60579 low complexity based on the following: History: 58-year-old male with past medical history as indicated above Examination: Demonstrable impairment in strength, balance, and mobility level with underlying impairments and functional limitations as exhibited above as well as deficit score of Presentation: Stable Decision Makin low complexity Goals: N/A. PT evaluation only. Plan of Care/Treatment Plan: N/A. PT evaluation only. DISCHARGE RECOMMENDATIONS: [X] Home with no services. HOme when medically cleared by surgeon. No PT services needed at home. [] Home with services [specify] [] Home with outpatient PT [] [] SNF for continued rehabilitation [] [] Assisted Care [] [] SNF versus LTC based on ability to participate and progress [] TREATMENT CODE/TIME: 25597 x 22 minutes for 1 unit (9:01-9:23). Thank you for the opportunity to participate in the care of this patient. Melody Thompson PT, DPT, CLT [facility] [place], [place]
--- NOTE | 2024-04-02 11:12 | PDOC.CMIN ---
Date of service: 04/02/24 Time of Service: 11:12 Care Management Initial Assmt Functional Status/Living Situation Town of Residence: [place] Resides with: Spouse (Edna) Advance Directives Advance Directives: Do you have an Advance Directive: Y 03/23/24 16:44 AD On File at [facility]: Y 03/23/24 16:44 Date Asked 03/23/24 03/23/24 16:44 AD Date Reviewed 03/23/24 03/23/24 16:44 COLST On File at [facility] No 03/23/24 16:44 COLST Date Scanned Code Status Resuscitation Status Full Code Insurance Coverage/Financial Issues Insurance: [employer] Medicare Replacement Care Team Visit Care Team Role Provider Type Alvaro Lee Primary Care Provider NON-[facility] STAFF PHYSICIAN InPatient Shaka Keating Other Providers OTHER CARTER [facility] Emergency Provider [employer] ADVERTISING & ONLINE Trina Ibarra DO Admit Provider OSTEOPATHIC DOCTOR Attending Provider Discharge Potential Discharge Needs: Surgical F/U Appt Anticipated Barriers to Discharge: None Identified Patient/Family Education Needs: Review discharge instructions, discuss Ask Me Three Transportation: Private vehicle Plan: Anticipate Arie will be discharged home with no new services when medically stable. He will follow up with his community providers and plan of care and transport with family. CM will follow. PFSH All Active Problems (Updated 04/01/24 @ 15:44 by Trina Ibarra DO) Postoperative hypoxia (Acute) Generalized weakness (Acute) Fecal incontinence (Acute) Illiterate (Acute) Acute appendicitis (Acute) Bilateral inguinal hernia without obstruction or gangrene (Acute) Edentulous (Acute) Former smoker (Acute) Diarrhea (Acute) Hallucinations (Acute) Worsening headaches (Acute) Rotator cuff tear, right (Acute) Arm pain (Acute) Low back pain (Acute) Wears hearing aid in both ears (Acute) Tubular adenoma of colon (Acute) Abdominal pain (Acute) Obesity (Chronic) Left leg numbness (Acute) Right leg numbness (Acute) COVID-19 (Acute) 09/05/21 Vaccinated, booster 03/25/21 Anterior epistaxis (Acute) Facial pain (Acute) Bilateral impacted cerumen (Acute) Fall (Acute) Abnormal stress test (Acute) ischemic changes in inferior and lateral leads - needs cath LFT elevation (Acute) Chest pressure (Acute) Sleep apnea (Acute) Encounter for annual physical exam (Acute) Tachycardia (Acute) Sinus pain (Acute) Migraine headache without aura (Acute) Conductive hearing loss, external ear (Acute) Carpal tunnel syndrome (Acute) Foot pain (Acute) Ventricular arrhythmia (Acute 12/16/06) Vivid dream (Acute 02/08/17) Sensorineural hearing loss (SNHL), bilateral (Chronic) Chronic left-sided low back pain with left-sided sciatica (Acute) Unspecified intellectual disabilities (Chronic) IQ-53 Syrinx of spinal cord (Chronic 06/13/17) Reduced libido (Chronic 04/01/11) Peptic reflux disease (Chronic) Multiple somatic complaints (Chronic) Hyperlipidemia (Chronic 09/19/12) Gout (Chronic 06/08/17) Essential hypertension (Chronic 05/18/13) Diabetes mellitus (Chronic 09/19/12) Depressive disorder (Chronic) with psychotic features hears voices DISH (diffuse idiopathic skeletal hyperostosis) (Chronic 03/09/17) Carotid stenosis, right (Chronic 07/01/16) per ulatrsound May 2016. Asymptomatic. Needs yearly ultrasound follow-up. 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) CVA (cerebral vascular accident) Surgical History (Updated 04/01/24 @ 13:59 by Trina Ibarra DO) S/P laparoscopic appendectomy History of esophagogastroduodenoscopy History of shoulder surgery History of tooth extraction Status post wrist surgery S/P wrist surgery 04/18/09 H/O esophagogastroduodenoscopy 02/16/11 H/O tooth extraction 04/18/89 H/O tooth extraction 04/18/89 WRIST SURGERY (~04/2009) SHOULDER SURGERY (~04/2009) EXTRACTION, TEETH (~12/1989) EGD - MAC (~02/2011) Colonoscopy - MAC (~02/2011) 04/2022 Family History Mother , AGE 56 Essential hypertension Leukemia Stomach cancer Father , AGE 85 Essential hypertension Depression Stroke Alcohol abuse A-fib Heart disease Sister Essential hypertension Heart disease Hyperlipidemia Sister Essential hypertension Cancer skin Sister No problems noted. Maternal Grandfather , AGE 68 Essential hypertension Heart disease Paternal Grandfather , AGE 83 Essential hypertension Stomach cancer Colon cancer Maternal Grandmother , AGE 89 Asthma Paternal Grandmother , AGE 84 Stroke Asthma Social History Smoking/Tobacco Use Status: Former Tobacco Use tobacco type: cigarettes Quit Date: 04/18/81 Tobacco: How many years used: 35 Smokeless tobacco user: chewing tobacco Second Hand Exposure: Yes Smoking risk assessment performed?: Yes Alcohol Intake: never Drug use: Never Substance use type: does not use Caregiver/Support person: No Household members: spouse Housing: house Communication Needs: Hard of Hearing, Corrective Lenses and Cannot Read Do you need help understanding health information?: Rarely current occupation: [employer] T[employer]ER Pets and animals: Yes Pets and animals: cat(s) Sexually active: No Do you think of yourself as: straight/heterosexual Current gender identity: male What is your relationship status?: How often do you talk on the phone with friends or family?: three or more times per week How often do you get together with friends or relatives?: once per week How often do you attend congregation or islam services?: 1-3 times per year Do you belong to any clubs or organized social groups?: no Panel score (0-1 are the most socially isolated patients): 2 What type of physical activity do you participate in: walking and aerobic Duration: 15-30 minutes/day Frequency: 3-4 times per week Tatianna/Quaker: Voodoo Special tatianna needs: No Seatbelt use: always Helmet use: No Drive intox or ride w/intox medical delivery driver: No Do you feel safe at home: Yes Victim of physical abuse: No Victim of emotional abuse: No Victim of sexual abuse: No Would you like helpful sources: No Additional Social history: unble to assess privately SDOH(Care Management) Screening Will the Patient Participate in the Screening?: Unable to obtain
[2024-04-02] MEDS: Polyethylene Glycol 3350 17 GM PACKET PO (11:31)
[2024-04-02 11:39] VITALS: BP 132/83; PULSE 69; RESP 18; TEMP 36.4; O2SAT 94
--- NOTE | 2024-04-02 12:50 | PHA.REVIEW2 ---
Pharmacy Admission Review Admission Clinical Review Admission Pharmacy Review: Postoperative hypoxia (Acute) Generalized weakness (Acute) Fecal incontinence (Acute) Illiterate (Acute) Acute appendicitis (Acute) Bilateral inguinal hernia without obstruction or gangrene (Acute) Edentulous (Acute) Former smoker (Acute) Diarrhea (Acute) Sleep apnea (Acute) Migraine headache without aura (Acute) Ventricular arrhythmia (Acute 12/16/06) Penicillins Allergy (Unknown, Verified 03/31/24 08:28) Other (See Comment) venom-honey bee Allergy (Verified 03/31/24 08:28) Swelling metformin Adverse Reaction (Intermediate, Verified 03/31/24 08:28) diarrhea diphenhydramine HCl Adverse Reaction (Verified 03/31/24 08:28) hyper Resuscitation Status Full Code Height 5 ft 8 in Weight 120.8 kg Comments Comments/Follow Ups: POD #2 laparoscopic appendectomy Pharmacy Admission Review Renal Dosing Renal Dosing: BUN 13 mg/dL (7-18) 04/01/24 06:24 Creatinine 0.9 mg/dL (0.70-1.30) 04/01/24 06:24 Medications needing adjustments: Reviewed (CrCl 99.28 mL/min) List of meds needing interventions: Current medications are okay Anticoagulation Anticoagulation: Hgb 15.5 g/dL (13.5-17.5) 04/02/24 06:21 Hct 47.3 % (40.0-50.0) 04/02/24 06:21 Plt Count 203 10^3/uL (130-400) 04/02/24 06:21 Creatinine 0.9 mg/dL (0.70-1.30) 04/01/24 06:24 DVT Prophylaxis: Reviewed Medications: Heparin (q12h) Opiate Usage Evaluate Pain Scale/Pains Meds: Reviewed (morphine 2mg IVP q1h PRN - 2 doses given total, none in the pats 24 hours) Scheduled Bowel Reg ordered if on Opiates?: No (PRN Miralax) Relevant Labs Relevant Labs: Sodium 140 mmol/L (136-145) 04/01/24 06:24 Potassium 4.9 mmol/L (3.5-5.1) 04/01/24 06:24 Chloride 103 mmol/L (98-107) 04/01/24 06:24 Magnesium 2.1 mg/dL (1.8-2.4) 03/31/24 09:00 C-Reactive Protein 6.76 mg/dL (<or=0.5) H 04/02/24 06:21 Electrolytes, C-Reactive P, ESR: Reviewed (No new labs for today) DM Control DM Control: Glucose 137 mg/dL (74-106) H 04/01/24 06:24 Finger Stick Blood Glucose 131 1132 Finger Stick Blood Glucose 131 1132 Finger Stick Blood Glucose 131 1132 Finger Stick Blood Glucose 137 0940 Finger Stick Blood Glucose 137 0751 Finger Stick Blood Glucose 137 0751 DM Control: Reviewed Insulin Dosing, Diabetic Medication: Has order for SS insulin, glipizide 10mg daily and Jardiance 25mg daily Cardiac Review Cardiac Review: Troponin I 5 ng/L (<or=76) 04/01/24 06:24 BP, HR, EF%: Reviewed (BP and HR WNL) List meds needing interventions: Has order for lisinopril 10mg daily and metoprolol XL 25mg daily QTc Review QTc: Reviewed (386 from 03/31/24) IV to PO Switch IV Medications: Reviewed (ceftriaxone, metronidazole and morphine) Home Meds Home Med List reviewed: Reviewed Relevent Home Meds Not ordered & why?: esomeprazole, multivitamin, naproxen (PRN), rosuvastatin and vitamin B complex Updated glipizide on home med list and changed order based on recent fill history - takes glipizide 10mg daily, was on home med and ordered as glipizide 10mg ER daily. Current Meds Current Medication Order Review: Intervened Comments: Added 2nd PRN to nystatin order per pharmacy protocol Pharmacy Antibiotic Review Relevant Labs: Relevant Labs 04/02/24 06:21 C-Reactive Protein 6.76 H WBC 10.32 10^3/uL (4.4-10.8) 04/02/24 06:21 Temperature 36.4 C Temperature 36.2 C Temperature 36.2 C Microbiology 03/31/24 11:28 Blood Culture - Preliminary Blood NO GROWTH 24 HOURS 03/31/24 11:15 Blood Culture - Preliminary Blood NO GROWTH 24 HOURS Pharmacy Antibiotic Activity: C/S review and Reviewed, no change Comments: Patient is on ceftriaxone and metronidazole, day 3. WBC decreased from 14.44 and blood cultures showing no growth. Comments Comments/Follow Ups: POD #2 laparoscopic appendectomy
[2024-04-02] MEDS: traMADol 50 MG TAB PO (12:55)
--- NOTE | 2024-04-02 14:01 | INITIAL_ITS ---
Care Management Initial Assmt Initial Assessment Reason for Hospitalization: appendicitis Functional Status/Living Situation Patient Presentation: Arie was sitting up in a chair visiting with his when CM met with him. He was pleasant in manner and engaged easily with CM. Arie has 2 sons who live locally and several grandchildren and great grandchildren. Arie was admitted with appendicitis and had an appendectomy on 03/31/24. He has done well and will be discharged home this afternoon. Arie is disabled but is independnet with ADLs and self care and does not receive any community services. Town of Residence: [place] Resides with: Spouse (Edna) Significant Other/Family: [facility] Employment Status: Disabled Instrumental Activities of Daily Living (ADLs): Independent Medications Medication Management: No Issues/Barriers identified Advance Directives Advance Directives: Do you have an Advance Directive: Y 03/23/24 16:44 AD On File at [facility]: Y 03/23/24 16:44 Date Asked 03/23/24 03/23/24 16:44 AD Date Reviewed 03/23/24 03/23/24 16:44 COLST On File at [facility] No 03/23/24 16:44 COLST Date Scanned Code Status Resuscitation Status Full Code Insurance Coverage/Financial Issues Insurance: [facility] Medicare Replacement Care Team Visit Care Team Role Provider Type Alvaro Lee Primary Care Provider NON-[facility] STAFF PHYSICIAN InPatient Shaka Keating Other Providers OTHER CARTER [facility] Emergency Provider PHYSICIANS LOGISTICS SUPERVISOR Trina Ibarra, DO Admit Provider OSTEOPATHIC DOCTOR Attending Provider Discharge Potential Discharge Needs: Surgical F/U Appt Anticipated Barriers to Discharge: None Identified Patient/Family Education Needs: Review discharge instructions, discuss Ask Me Three Transportation: Private vehicle Plan: Arie will be discharged home with no new services. He will follow up with his surgeon and plan of care and transport with [facility] . [facility] All Active Problems Postoperative hypoxia (Acute) Generalized weakness (Acute) Fecal incontinence (Acute) Illiterate (Acute) Acute appendicitis (Acute) Bilateral inguinal hernia without obstruction or gangrene (Acute) Edentulous (Acute) Former smoker (Acute) Diarrhea (Acute) Hallucinations (Acute) Worsening headaches (Acute) Rotator cuff tear, right (Acute) Arm pain (Acute) Low back pain (Acute) Wears hearing aid in both ears (Acute) Tubular adenoma of colon (Acute) Abdominal pain (Acute) Obesity (Chronic) Left leg numbness (Acute) Right leg numbness (Acute) COVID-19 (Acute) 09/05/21 Vaccinated, booster 03/25/21 Anterior epistaxis (Acute) Facial pain (Acute) Bilateral impacted cerumen (Acute) Fall (Acute) Abnormal stress test (Acute) ischemic changes in inferior and lateral leads - needs cath LFT elevation (Acute) Chest pressure (Acute) Sleep apnea (Acute) Encounter for annual physical exam (Acute) Tachycardia (Acute) Sinus pain (Acute) Migraine headache without aura (Acute) Conductive hearing loss, external ear (Acute) Carpal tunnel syndrome (Acute) Foot pain (Acute) Ventricular arrhythmia (Acute 12/16/06) Vivid dream (Acute 02/08/17) Sensorineural hearing loss (SNHL), bilateral (Chronic) Chronic left-sided low back pain with left-sided sciatica (Acute) Unspecified intellectual disabilities (Chronic) IQ-53 Syrinx of spinal cord (Chronic 06/13/17) Reduced libido (Chronic 04/01/11) Peptic reflux disease (Chronic) Multiple somatic complaints (Chronic) Hyperlipidemia (Chronic 09/19/12) Gout (Chronic 06/08/17) Essential hypertension (Chronic 05/18/13) Diabetes mellitus (Chronic 09/19/12) Depressive disorder (Chronic) with psychotic features hears voices DISH (diffuse idiopathic skeletal hyperostosis) (Chronic 03/09/17) Carotid stenosis, right (Chronic 07/01/16) per ulatrsound May 2016. Asymptomatic. Needs yearly ultrasound follow-up. 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) CVA (cerebral vascular accident) Surgical History S/P laparoscopic appendectomy History of esophagogastroduodenoscopy History of shoulder surgery History of tooth extraction Status post wrist surgery S/P wrist surgery 04/18/09 H/O esophagogastroduodenoscopy 02/16/11 H/O tooth extraction 04/18/89 H/O tooth extraction 04/18/89 WRIST SURGERY (~04/2009) SHOULDER SURGERY (~04/2009) EXTRACTION, TEETH (~12/1989) EGD - MAC (~02/2011) Colonoscopy - MAC (~02/2011) 04/2022 Family History Mother , AGE 56 Essential hypertension Leukemia Stomach cancer Father , AGE 85 Essential hypertension Depression Stroke Alcohol abuse A-fib Heart disease Sister Essential hypertension Heart disease Hyperlipidemia Sister Essential hypertension Cancer skin Sister No problems noted. Maternal Grandfather , AGE 68 Essential hypertension Heart disease Paternal Grandfather , AGE 83 Essential hypertension Stomach cancer Colon cancer Maternal Grandmother , AGE 89 Asthma Paternal Grandmother , AGE 84 Stroke Asthma Social History Smoking/Tobacco Use Status: Former Tobacco Use tobacco type: cigarettes Quit Date: 04/18/81 Tobacco: How many years used: 35 Smokeless tobacco user: chewing tobacco Second Hand Exposure: Yes Smoking risk assessment performed?: Yes Alcohol Intake: never Drug use: Never Substance use type: does not use Caregiver/Support person: No Household members: spouse Housing: house Communication Needs: Hard of Hearing, Corrective Lenses and Cannot Read Do you need help understanding health information?: Rarely 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 Pets and animals: Yes Pets and animals: cat(s) Sexually active: No Do you think of yourself as: straight/heterosexual Current gender identity: male What is your relationship status?: How often do you talk on the phone with friends or family?: three or more times per week How often do you get together with friends or relatives?: once per week How often do you attend spiritism or baptist services?: 1-3 times per year Do you belong to any clubs or organized social groups?: no Panel score (0-1 are the most socially isolated patients): 2 What type of physical activity do you participate in: walking and aerobic Duration: 15-30 minutes/day Frequency: 3-4 times per week Tatianna/Holiness: Adventist Special tatianna needs: No Seatbelt use: always Helmet use: No Drive intox or ride w/intox milk pickup truck driver: No Do you feel safe at home: Yes Victim of physical abuse: No Victim of emotional abuse: No Victim of sexual abuse: No Would you like helpful sources: No Additional Social history: unble to assess privately SDOH(Care Management) Screening Will the Patient Participate in the Screening?: Unable to obtain
--- NOTE | 2024-04-02 14:03 | W.PM.DS.N ---
Date of service: 04/02/24 Time of Service: 14:03 DS: Diagnosis Discharge Diagnosis (1) Anxiety: Status: Chronic (2) Depressive disorder: Status: Chronic (3) Alcohol intake above recommended sensible limits: Status: Chronic (4) Hypertension: Status: Chronic (5) Essential hypertension: Status: Chronic (6) Hyperlipidemia: Status: Chronic (7) Diabetes mellitus: Status: Chronic (8) Obesity: Status: Chronic (9) Peptic reflux disease: Status: Chronic (10) Acute appendicitis: Status: Acute (11) Migraine headache without aura: Status: Acute (12) Unspecified intellectual disabilities: Status: Chronic (13) Sleep apnea: Status: Acute (14) Illiterate: Status: Acute (15) Former smoker: Status: Acute (16) Fecal incontinence: Status: Acute (17) Generalized weakness: Status: Acute (18) Postoperative hypoxia: Status: Acute Discharge Plan Disposition Condition: Improving Discharge Details Reason For Visit: Abd/stomach pain/vomiting Admit Date/Time: 03/31/24 15:45 Admit Provider: Trina Ibarra Attending Provider: Trina Ibarra Primary Care Provider: Alvaro Lee Hospital Course Hospital Course: see addendum Home Meds and New Rx's Prescriptions: New tramadol 50 mg tablet 50 mg PO Q4H PRNQty: 14 0RF Bio-K plus 50 billion cell capsule,delayed release(DR/EC) 1 cap PO DAILY Qty: 30 0RF amoxicillin-pot clavulanate 875-125 mg tablet 1 tab PO Q12H 4 Days Qty: 8 0RF Rx Instructions: Yogurt daily while taking antibiotics Continued aspirin 81 mg tablet,delayed release (DR/EC) 81 mg PO DAILY cyproheptadine 4 mg tablet See Rx Instructions PO HS Qty: 180 3RF Rx Instructions: Take 4 mg at bedtime every night. Ok to take an additional 4 mg tab once daily as needed for headaches. venlafaxine 37.5 mg capsule,extended release 24hr 37.5 mg PO DAILY (DME) blood-glucose meter Misc See Dose Instructions .ROUTE .MEDSUPPLY Qty: 1 0RF Dose Instruction: As directed Rx Instructions: One touch verio E11.9 Once daily testing Balanced B-100 Complex 100 mg tablet extended release 1 tab PO DAILY Jardiance 25 mg tablet 25 mg PO QAM Qty: 90 5RF metoprolol succinate 25 mg tablet extended release 24 hr 25 mg PO DAILY risperidone [Risperdal] 2 mg tablet 2 mg PO BID multivitamin 1 EACH tablet 1 tab PO DAILY (DME) lancets [FreeStyle Lancets] 28 gauge misc See Rx Instructions .ROUTE .MEDSUPPLY Qty: 100 5RF Rx Instructions: daily testing E11.9. One Touch Verio Lancets rosuvastatin 10 mg tablet 10 mg PO HS Qty: 90 6RF nystatin 100,000 unit/gram cream 1 - 2 applic TP BID PRN (Reason: rash) Qty: 30 0RF (DME) Blood Glucose Test Strip See Rx Instructions .ROUTE .MEDSUPPLY Qty: 100 7RF Rx Instructions: One Touch Verio test strips E11.9. Test daily (DME) lancets [OneTouch Delica Lancets] 33 gauge misc See Rx Instructions .ROUTE DAILY Qty: 100 5RF Rx Instructions: E11.9 daily lisinopril 10 mg tablet 10 mg PO DAILY Qty: 90 4RF allopurinol 300 mg tablet 300 mg PO DAILY Qty: 90 4RF venlafaxine 75 mg capsule,extended release 24hr 75 mg PO DAILY Qty: 90 5RF gabapentin 300 mg capsule 300 mg PO BID Qty: 180 5RF esomeprazole magnesium [Nexium] 20 mg capsule,delayed release(DR/EC) 20 mg PO HS Qty: 90 3RF naproxen sodium [Aleve] 220 MG tablet 220 mg PO BID PRN No Action glipizide 10 mg tablet 10 mg PO DAILY Patient Comments: TAKE ONE TABLET BY MOUTH EVERY DAY Discharge Instructions Additional Instructions: Keep an ice bag on the incision. 20 minutes on and 20 minutes off. Ice keeps the swelling down and swelling causes pain. Make sure you wrap the ice pack in a towel and don't apply directly to the skin. -No driving for 3 days or of you are taking narcotic pain medications. [facility] Surgery Clinic: [phone] -Follow-up with Dr. Ibarra in 1 week. -soft diet: No beef/pork raw vegetables x1 -week. Cooked vegetables are fine -no straining to move bowels -pain meds are very constipating: if you do not move your bowels daily take a dose of OTC Miralax -It is ok to shower. No bathe, soaking, swimming or hot tubs. Shower daily. -Keep wound clean and dry. Wash incision with soap and water daily. Pat dry, don't rub. -You may find that your appetite is smaller. Eat 3-6 small meals throughout the day. It is important to drink lots of water after surgery, 6-10 glasses a day. -If you were given an incentive spirometry (breathing middle or intermediate school principal?), continue to do this 10x/hour while awake. -We do want you up walking, at least 5-6 times per day. This is very important to prevent pneumonia and blood clots. You can climb stairs, take them slowly. -No lifting over 5 pounds. This is very important to avoid developing a hernia in your incision. -You may find that you are very tired after surgery- this is normal. ? MEDICATIONS: Alternate Tylenol 1000mg by mouth every 8 hours and Ibuprofen 600mg every 6 hours. ?Make sure you take ibuprofen with food and not on an empty stomach. ?Take the Tylenol and ibuprofen continuously for the first 72hrs- not just when you have pain.? Use the tramadol for breakthrough pain/pain >7.? Use ICE!?? Twenty minutes on, and then off, continuously for the first 72hours. If you are taking narcotic pain medication, follow the instructions on the label and do not drive. Pain medications can make you very constipated. Make sure you are moving your bowels daily. If not, take Miralax or Milk of Magnesia.?? Referrals: Trina Ibarra, [OSTEOPATHIC DOCTOR] - (April 16 at 1 PM) Activity:: see above Activity:: see above Equipment/Supplies:: No Equipment Needed Diet:: Carb Counting DS: Summary Time Spent with Patient providing and/or coordinating discharge services: Less than 30 minutes Status at Discharge Functional status at discharge: independent ambulation Overall status at discharge: patient is progressing back to baseline Mental Status: mental status grossly normal Speech and Movement: speech and movement normal Mood: congruent mood Affect: normal affect Quality:SDOH Health Related Social Needs: No Data to Display Exam Psych Mental Status: mental status grossly normal Speech and Movement: speech and movement normal Mood: congruent mood Affect: normal affect DS: Data Vitals/I&O Vitals and I&O: Vital Signs Temperature 97.5 F L 04/02/24 11:39 Temperature Source Tympanic 04/02/24 11:39 Pulse 69 04/02/24 11:39 Pulse 100 H 03/31/24 16:06 Respiratory Rate 18 04/02/24 11:39 Respiratory Effort Normal, Non-Labored 03/31/24 16:33 Respiratory Depth Normal 03/31/24 16:33 Respiratory Pattern Normal 03/31/24 16:33 Blood Pressure 132/83 04/02/24 11:39 Blood Pressure Mean 87 03/31/24 16:06 Blood Pressure Position Sitting 03/31/24 08:27 Pulse Oximetry 94 04/02/24 11:39 Respiratory End-tidal CO2 46 03/31/24 16:08 Oxygen Delivery Method Room Air 04/02/24 11:39 Oxygen Flow Rate 0 04/02/24 11:39 Pain Level 9 04/02/24 12:55 Comment RN Notified 03/31/24 20:48 Intake & Output 04/01/24 04/02/24 04/02/24 23:59 11:59 23:59 Intake Total 1080 / 3000 220 / 320 100 / 320 Output Total 2064 5 / 5 Balance 1060 / 935 215 / 315 100 / 315 Intake: IV 280 / 1500 220 / 320 100 / 320 Oral 800 / 1500 Output: Drainage 40 5 / 5 Left Lower Abdomen 40 5 / 5 Other: Comment pt voided x1 pt voids independently, voided in toilet per pt Data Completed and Pending Labs on day of discharge: Labs from last 24 hours 04/02/24 06:21 WBC 10.32 RBC 5.21 Hgb 15.5 Hct 47.3 MCV 91 MCH 29.8 MCHC 32.8 RDW 13.1 Plt Count 203 MPV 10.7 Immature Gran % 0.5 Neutrophils % 68.8 Lymphocytes % 15.7 Monocytes % 12.3 Eosinophils % 2.2 Basophils % 0.5 Nucleated RBC % 0.0 Absolute Neutrophils 7.10 H Absolute Lymphocytes 1.62 Absolute Monocytes 1.27 H Absolute Eosinophils 0.23 Absolute Basophils 0.05 C-Reactive Protein 6.76 H Preliminary micro results at discharge 03/31/24 11:28 Blood Culture - Preliminary Blood NO GROWTH 48 HOURS 03/31/24 11:15 Blood Culture - Preliminary Blood NO GROWTH 48 HOURS PFSH All Active Problems Postoperative hypoxia (Acute) Generalized weakness (Acute) Fecal incontinence (Acute) Illiterate (Acute) Acute appendicitis (Acute) Bilateral inguinal hernia without obstruction or gangrene (Acute) Edentulous (Acute) Former smoker (Acute) Diarrhea (Acute) Hallucinations (Acute) Worsening headaches (Acute) Rotator cuff tear, right (Acute) Arm pain (Acute) Low back pain (Acute) Wears hearing aid in both ears (Acute) Tubular adenoma of colon (Acute) Abdominal pain (Acute) Obesity (Chronic) Left leg numbness (Acute) Right leg numbness (Acute) COVID-19 (Acute) 09/05/21 Vaccinated, booster 03/25/21 Anterior epistaxis (Acute) Facial pain (Acute) Bilateral impacted cerumen (Acute) Fall (Acute) Abnormal stress test (Acute) ischemic changes in inferior and lateral leads - needs cath LFT elevation (Acute) Chest pressure (Acute) Sleep apnea (Acute) Encounter for annual physical exam (Acute) Tachycardia (Acute) Sinus pain (Acute) Migraine headache without aura (Acute) Conductive hearing loss, external ear (Acute) Carpal tunnel syndrome (Acute) Foot pain (Acute) Ventricular arrhythmia (Acute 12/16/06) Vivid dream (Acute 02/08/17) Sensorineural hearing loss (SNHL), bilateral (Chronic) Chronic left-sided low back pain with left-sided sciatica (Acute) Unspecified intellectual disabilities (Chronic) IQ-53 Syrinx of spinal cord (Chronic 06/13/17) Reduced libido (Chronic 04/01/11) Peptic reflux disease (Chronic) Multiple somatic complaints (Chronic) Hyperlipidemia (Chronic 09/19/12) Gout (Chronic 06/08/17) Essential hypertension (Chronic 05/18/13) Diabetes mellitus (Chronic 09/19/12) Depressive disorder (Chronic) with psychotic features hears voices DISH (diffuse idiopathic skeletal hyperostosis) (Chronic 03/09/17) Carotid stenosis, right (Chronic 07/01/16) per ulatrsound May 2016. Asymptomatic. Needs yearly ultrasound follow-up. 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) CVA (cerebral vascular accident) Surgical History S/P laparoscopic appendectomy History of esophagogastroduodenoscopy History of shoulder surgery History of tooth extraction Status post wrist surgery S/P wrist surgery 04/18/09 H/O esophagogastroduodenoscopy 02/16/11 H/O tooth extraction 04/18/89 H/O tooth extraction 04/18/89 WRIST SURGERY (~04/2009) SHOULDER SURGERY (~04/2009) EXTRACTION, TEETH (~12/1989) EGD - MAC (~02/2011) Colonoscopy - MAC (~02/2011) 04/2022 Family History Mother , AGE 56 Essential hypertension Leukemia Stomach cancer Father , AGE 85 Essential hypertension Depression Stroke Alcohol abuse A-fib Heart disease Sister Essential hypertension Heart disease Hyperlipidemia Sister Essential hypertension Cancer skin Sister No problems noted. Maternal Grandfather , AGE 68 Essential hypertension Heart disease Paternal Grandfather , AGE 83 Essential hypertension Stomach cancer Colon cancer Maternal Grandmother , AGE 89 Asthma Paternal Grandmother , AGE 84 Stroke Asthma Social History Smoking/Tobacco Use Status: Former Tobacco Use tobacco type: cigarettes Quit Date: 04/18/81 Tobacco: How many years used: 35 Smokeless tobacco user: chewing tobacco Second Hand Exposure: Yes Smoking risk assessment performed?: Yes Alcohol Intake: never Drug use: Never Substance use type: does not use Caregiver/Support person: No Household members: spouse Housing: house Communication Needs: Hard of Hearing, Corrective Lenses and Cannot Read Do you need help understanding health information?: Rarely 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 Pets and animals: Yes Pets and animals: cat(s) Sexually active: No Do you think of yourself as: straight/heterosexual Current gender identity: male What is your relationship status?: How often do you talk on the phone with friends or family?: three or more times per week How often do you get together with friends or relatives?: once per week How often do you attend pentecostalism or gnosticism services?: 1-3 times per year Do you belong to any clubs or organized social groups?: no Panel score (0-1 are the most socially isolated patients): 2 What type of physical activity do you participate in: walking and aerobic Duration: 15-30 minutes/day Frequency: 3-4 times per week Tatianna/Zoroastrian: Jainism Special tatianna needs: No Seatbelt use: always Helmet use: No Drive intox or ride w/intox milk delivery driver: No Do you feel safe at home: Yes Victim of physical abuse: No Victim of emotional abuse: No Victim of sexual abuse: No Would you like helpful sources: No Additional Social history: unble to assess privately Time Spent with Patient Time Spent with Patient: <45 minutes Time was spent: preparing to see the patient(eg.review tests), indepentently interpreting results and counseling the patient
--- NOTE | 2024-04-02 14:09 | W.PM.PROGNOT ---
Date of Service Date of service: 04/02/24 Time of Service: 14:09 Assessment and Plan Assessment and plan (1) Acute appendicitis: Status: Acute Assessment and plan: Arie seems to be doing quite well after laparoscopic appendectomy. I removed his drain today in the usual fashion without any difficulty. He did have a few runs of SVT on the telemetry, but this been completely asymptomatic, and his postoperative troponins are all normal. At this point, I think it is reasonable to discharge him home. We talked about what to expect in terms of the recovery over the next few days. He has some MiraLAX at home that he can help use with any constipation symptoms if they evolve, and we can certainly work out some of those treatments over the phone if needed. Subjective Subjective Interval history since last seen: Arie looks very good. Has been up and out of bed walking around the hallway. Pain seems very well-controlled. He has not had any bowel movement today, but he has been able to tolerate meals without any nausea or vomiting. Exam GI Other: The abdomen is soft, and nontender. He is not distended. Drain is serosanguineous, and is only drained about 10 mL through this morning time. Incisions are all clean. Objective Last Vital Signs Temp 97.5 F L 04/02/24 11:39 Pulse 69 04/02/24 11:39 Resp 18 04/02/24 11:39 BP 132/83 04/02/24 11:39 Pulse Ox 94 04/02/24 11:39 Laboratory Results - last 24 hr 04/02/24 06:21 WBC 10.32 RBC 5.21 Hgb 15.5 Hct 47.3 MCV 91 MCH 29.8 MCHC 32.8 RDW 13.1 Plt Count 203 MPV 10.7 Immature Gran % 0.5 Neutrophils % 68.8 Lymphocytes % 15.7 Monocytes % 12.3 Eosinophils % 2.2 Basophils % 0.5 Nucleated RBC % 0.0 Absolute Neutrophils 7.10 H Absolute Lymphocytes 1.62 Absolute Monocytes 1.27 H Absolute Eosinophils 0.23 Absolute Basophils 0.05 C-Reactive Protein 6.76 H Time Spent with Patient Time Spent with Patient: <25 minutes Time was spent: preparing to see the patient(eg.review tests), indepentently interpreting results and counseling the patient
--- NOTE | 2024-04-02 17:23 | PDOC.CMDIS ---
Date of service: 04/02/24 Time of Service: 17:24 LACE Index Scoring Tool Questions: Length of Stay (in days): 2 Was the patient admitted via the E.D.?: Yes Comorbidities: Cerebrovascular Disease and Diabetes w/o Complication E.D. Visits: 2 Answers: Total Score: 9 Risk of Readmission: Low Risk Care Management Discharge Plan Reason for Hospitalization: appendicitis Discharge Plan: Arie will be discharged home with no new services. He will follow up with his surgeon and plan of care and transport with his . Patient/Family Education Needs: Review discharge instructions, discuss Ask Me Three [facility] Health Related Social Needs: No Data to Display
== END 2024-04-02 15:33 | disposition home or self-care (01) | DRG 398 ==
LOC: ER 08:26 → SUR 13:37 → MS 16:17
PROVIDERS: Admitting Provider Surgery; Emergency Provider Physician Assistant; PCP Physician Assistant; Visit Provider Surgery
PROC: 0DTJ4ZZ Resection of Appendix, Percutaneous Endoscopic Approach (ICD-10-PCS; CPT 44970; principal; 2024-03-31 12:25)
DX: K35.80 Unspecified acute appendicitis (principal); I47.10 Supraventricular tachycardia, unspecified; Z68.41 Body mass index [BMI] 40.0-44.9, adult; Z55.0 Illiteracy and low-level literacy; G43.009 Migraine without aura, not intractable, without status migrainosus; R15.9 Full incontinence of feces; R53.1 Weakness; R09.02 Hypoxemia; K42.9 Umbilical hernia without obstruction or gangrene; I10 Essential (primary) hypertension; F41.9 Anxiety disorder, unspecified; F32.A Depression, unspecified; G47.33 Obstructive sleep apnea (adult) (pediatric); Z87.891 Personal history of nicotine dependence; E66.9 Obesity, unspecified; E11.9 Type 2 diabetes mellitus without complications; E78.5 Hyperlipidemia, unspecified; F10.10 Alcohol abuse, uncomplicated; K21.9 Gastro-esophageal reflux disease without esophagitis; H90.3 Sensorineural hearing loss, bilateral; Z97.4 Presence of external hearing-aid; M54.42 Lumbago with sciatica, left side; G89.29 Other chronic pain; I65.21 Occlusion and stenosis of right carotid artery; M48.10 Ankylosing hyperostosis [Forestier], site unspecified; E11.42 Type 2 diabetes mellitus with diabetic polyneuropathy; Z86.73 Personal history of transient ischemic attack (TIA), and cerebral infarction without residual deficits; Z79.84 Long term (current) use of oral hypoglycemic drugs; F79 Unspecified intellectual disabilities
CPT/HCPCS: 44970; 36415; 36416; 80048; 80053; 82805; 82962; 83690; 87040; 93005; 96361; 96365; 96367; 96375; 96376; 97161; 99223; 99285; 74177; 81003; 83605; 83735; 84484; 85025; 86140; 88304; 93010; 94760; J0131; J0696; J0780; J1100; J1644; J1815; J1836; J1885; J2270; J2371; J2405; J2470; J2704; J3010; J3490

== ENCOUNTER 2024-04-11 20:03 | Emergency (ER) | payer MEDICARE, MEDICAID, SELFPAY ==
[2024-04-11 20:06] VITALS: BP 151/80; PULSE 116; RESP 16; TEMP 36.9; O2SAT 92
--- NOTE | 2024-04-11 20:15 | ED.GENADUL_ITS ---
Discharge Plan Disposition Patient Disposition: Home Condition: Good Discharge Details Clinical Impression: C. difficile colitis Primary Care Provider: Alvaro Lee ED Provider: Ozzie Gan Meds and New Rx's Prescriptions: New vancomycin [Vancocin] 125 mg capsule 125 mg PO QID Qty: 38 0RF Continued aspirin 81 mg tablet,delayed release (DR/EC) 81 mg PO DAILY cyproheptadine 4 mg tablet See Rx Instructions PO HS Qty: 180 3RF Rx Instructions: Take 4 mg at bedtime every night. Ok to take an additional 4 mg tab once daily as needed for headaches. venlafaxine 37.5 mg capsule,extended release 24hr 37.5 mg PO DAILY (DME) blood-glucose meter Misc See Dose Instructions .ROUTE .MEDSUPPLY Qty: 1 0RF Dose Instruction: As directed Rx Instructions: One touch verio E11.9 Once daily testing Balanced B-100 Complex 100 mg tablet extended release 1 tab PO DAILY Jardiance 25 mg tablet 25 mg PO QAM Qty: 90 5RF metoprolol succinate 25 mg tablet extended release 24 hr 25 mg PO DAILY risperidone [Risperdal] 2 mg tablet 2 mg PO BID multivitamin 1 EACH tablet 1 tab PO DAILY (DME) lancets [FreeStyle Lancets] 28 gauge misc See Rx Instructions .ROUTE .MEDSUPPLY Qty: 100 5RF Rx Instructions: daily testing E11.9. One Touch Verio Lancets rosuvastatin 10 mg tablet 10 mg PO HS Qty: 90 6RF nystatin 100,000 unit/gram cream 1 - 2 applic TP BID PRN (Reason: rash) Qty: 30 0RF (DME) Blood Glucose Test Strip See Rx Instructions .ROUTE .MEDSUPPLY Qty: 100 7RF Rx Instructions: One Touch Verio test strips E11.9. Test daily (DME) lancets [OneTouch Delica Lancets] 33 gauge misc See Rx Instructions .ROUTE DAILY Qty: 100 5RF Rx Instructions: E11.9 daily lisinopril 10 mg tablet 10 mg PO DAILY Qty: 90 4RF allopurinol 300 mg tablet 300 mg PO DAILY Qty: 90 4RF venlafaxine 75 mg capsule,extended release 24hr 75 mg PO DAILY Qty: 90 5RF gabapentin 300 mg capsule 300 mg PO BID Qty: 180 5RF esomeprazole magnesium [Nexium] 20 mg capsule,delayed release(DR/EC) 20 mg PO HS Qty: 90 3RF naproxen sodium [Aleve] 220 MG tablet 220 mg PO BID PRN tramadol 50 mg tablet 50 mg PO Q4H PRNQty: 14 0RF Bio-K plus 50 billion cell capsule,delayed release(DR/EC) 1 cap PO DAILY Qty: 30 0RF glipizide 10 mg tablet 10 mg PO DAILY Patient Comments: TAKE ONE TABLET BY MOUTH EVERY DAY Discharge Instructions Instructions: Clostridioides difficile ED Additional Instructions: You were seen for worsening abdominal pain and diarrhea after finishing the antibiotic for your infection related to your appendicitis. Unfortunately, this caused an infection in your colon which we will treat with a different antibiotic. It is important to stay hydrated. You will need to take the new antibiotic every 6 hours for the next 10 days. You should alternate acetaminophen with ibuprofen to help control pain, you may take your tramadol if needed for severe pain. Follow-up with surgery on Tuesday as scheduled. Return to ED for severe worsening pain, spiking fevers, bloody diarrhea, persistent vomiting, other concerns. Referrals: [facility] [Provider Group] Discharge Data Discharge Date/Time-TO BE ENTERED AT DEPARTURE: 04/12/24 00:14 HPI General Mode of arrival: ambulatory . Date/Time Provider Initiated Documentation: 04/11/24 20:15 . Limitations to Documentation: no limitations . Information obtained by: patient, RN notes reviewed and old records reviewed . HPI Narrative: Patient presents to ED with worsening abdominal pain, rectal pain, tenesmus, diarrhea that began today. He denies any fever, nausea, vomiting and has a normal appetite. He is having no difficulty urinating. He is status post laparoscopic appendectomy on the and was discharged home on antibiotic due to infection. He was doing fine postoperatively until today. Today was actually the first time he had to take the tramadol he had been prescribed for pain if needed. Occasionally today has seen a little bit of blood in his stool. Denies any cough, chest pain, shortness of breath. Related Data Home Medications ?Medication ?Instructions ?Recorded ?Confirmed multivitamin 1 tab PO DAILY 07/13/12 04/11/24 naproxen sodium 220 mg tablet 220 mg PO BID PRN 12/19/15 04/11/24 (Aleve) aspirin 81 mg tablet,delayed 81 mg PO DAILY 03/25/21 04/11/24 release blood-glucose meter #1 ea 05/14/21 04/11/24 lancets 28 gauge (FreeStyle #100 ea 06/18/21 04/11/24 Lancets) vit B complex 100 combo no.2 100 1 tab PO DAILY 06/18/21 04/11/24 mg tablet,extended release (Balanced B-100 Complex) empagliflozin 25 mg tablet 25 mg PO QAM #90 tabs 06/01/22 04/11/24 (Jardiance) rosuvastatin 10 mg tablet 10 mg PO HS #90 tabs 06/21/22 04/11/24 nystatin 100,000 unit/gram topical 1 - 2 applic topical BID PRN rash 07/05/22 04/11/24 cream #30 grams blood sugar diagnostic (Blood #100 ea 07/14/22 04/11/24 Glucose Test strips) lancets 33 gauge (OneTouch Delica #100 ea 09/14/22 04/11/24 Lancets) allopurinol 300 mg tablet 300 mg PO DAILY #90 tabs 06/06/23 04/11/24 esomeprazole magnesium 20 mg 20 mg PO HS #90 caps 06/06/23 04/11/24 capsule,delayed release (Nexium) gabapentin 300 mg capsule 300 mg PO BID #180 caps 06/06/23 04/11/24 lisinopril 10 mg tablet 10 mg PO DAILY #90 tabs 06/06/23 04/11/24 venlafaxine 75 mg capsule,extended 75 mg PO DAILY #90 caps 06/06/23 04/11/24 release 24 hr cyproheptadine 4 mg tablet See Rx Instructions PO HS migraine 06/07/23 04/11/24 headache #180 tabs metoprolol succinate 25 mg 25 mg PO DAILY 07/27/23 04/11/24 tablet,extended release 24 hr venlafaxine 37.5 mg 37.5 mg PO DAILY 10/13/23 04/11/24 capsule,extended release 24 hr risperidone 2 mg tablet (Risperdal) 2 mg PO BID 11/10/23 04/11/24 L. acidophilus,casei,rhamnosus 50 1 cap PO DAILY #30 caps 04/01/24 04/11/24 billion cell capsule,delayed release (Bio-K plus) tramadol 50 mg tablet 50 mg PO Q4H PRN #14 tabs 04/01/24 04/11/24 glipizide 10 mg tablet 10 mg PO DAILY 04/02/24 04/11/24 vancomycin 125 mg capsule 125 mg PO QID #38 caps 04/11/24 (Vancocin) Previous Rx's ?Medication ?Instructions ?Recorded blood-glucose meter #1 ea 05/14/21 lancets 28 gauge (FreeStyle #100 ea 06/18/21 Lancets) empagliflozin 25 mg tablet 25 mg PO QAM #90 tabs 06/01/22 (Jardiance) rosuvastatin 10 mg tablet 10 mg PO HS #90 tabs 06/21/22 nystatin 100,000 unit/gram topical 1 - 2 applic topical BID PRN rash 07/05/22 cream #30 grams blood sugar diagnostic (Blood #100 ea 07/14/22 Glucose Test strips) lancets 33 gauge (OneTouch Delica #100 ea 09/14/22 Lancets) allopurinol 300 mg tablet 300 mg PO DAILY #90 tabs 06/06/23 esomeprazole magnesium 20 mg 20 mg PO HS #90 caps 06/06/23 capsule,delayed release (Nexium) gabapentin 300 mg capsule 300 mg PO BID #180 caps 06/06/23 lisinopril 10 mg tablet 10 mg PO DAILY #90 tabs 06/06/23 venlafaxine 75 mg capsule,extended 75 mg PO DAILY #90 caps 06/06/23 release 24 hr cyproheptadine 4 mg tablet See Rx Instructions PO HS migraine 06/07/23 headache #180 tabs L. acidophilus,casei,rhamnosus 50 1 cap PO DAILY #30 caps 04/01/24 billion cell capsule,delayed release (Bio-K plus) tramadol 50 mg tablet 50 mg PO Q4H PRN #14 tabs 04/01/24 vancomycin 125 mg capsule 125 mg PO QID #38 caps 04/11/24 (Vancocin) Allergies Allergy/AdvReac Type Severity Reaction Status Date / Time Penicillins Allergy Unknown Other (See Verified 04/11/24 20:10 Comment) venom-honey bee Allergy Swelling Verified 04/11/24 20:10 metformin AdvReac Intermediate diarrhea Verified 04/11/24 20:10 diphenhydramine HCl AdvReac hyper Verified 04/11/24 20:10 General Stated Complaint: Abd Prob SIS: 3 Review of Systems Narrative: Per HPI Exam Narrative Exam Narrative: Const: Obese male in NAD. VS per triage. HEENT: NC/AT. Normal facial exam. Neck: Supple. Trachea midline. Lungs: Normal respiratory effort. Cor: Tachycardia, regular rhythm. Good radial pulses. GI: Soft/ND/NT. Bruising noted LUQ. Neuro: A+O x 3. Normal speech, mentation, gait. Cranial nerves II - XII grossly intact. No gross motor or sensory deficit. Course Vital Signs Vital signs: Vital Signs Temperature 98.4 F 04/11/24 20:06 Pulse 116 H 04/11/24 20:06 Respiratory Rate 16 04/11/24 20:06 Blood Pressure 151/80 H 04/11/24 20:06 Pulse Oximetry 92 04/11/24 20:06 Temperature 98.4 F 04/11/24 20:06 Pulse 116 H 04/11/24 20:06 Respiratory Rate 16 04/11/24 20:06 Blood Pressure 151/80 H 04/11/24 20:06 Pulse Oximetry 92 04/11/24 20:06 Pain Level 2 04/11/24 20:06 Medical Decision Making Patient presenting to ED with worsening abdominal pain, tenesmus, diarrhea, status post appendectomy on the after which home on antibiotic. He is mildly tachycardic which is actually his baseline. He has had no fever or vomiting. Abdomen overall is soft and nontender. Presentation is highly suspicious for C. difficile colitis. Consider possible postoperative complication. IV established laboratory studies obtained. CT scan of the abdomen pelvis ordered. Stool specimen for C. difficile PCR ordered. 22:00 - Patient's laboratory studies are unremarkable other than an elevated wh ite count. CT scan preliminary read per radiology with expected postoperative changes and other chronic findings. No evidence of significant acute pathology. Patient encouraged to provide urine and stool sample to make disposition. 23:45 - Patient's urinalysis is negative. PCR for C. difficile is positive as expected. I do think patient is appropriate for outpatient management. He has been given his initial dose of oral vancomycin 125 mg here. He will be given 1 tablet to take at home in the morning and prescription for 10-day course sent to pharmacy. He has follow-up with surgery this coming Tuesday. He may use acetaminophen or ibuprofen for pain and still has tramadol if needed for severe pain. Return precautions provided. Medical Records Medical records reviewed: Yes I reviewed the patient's medical records. Medical records narrative: notes from surgical admission Lab Data Lab results reviewed: Yes I reviewed the patient's lab results. Lab results narrative: see [facility] All Active Problems (Updated 04/11/24 @ 23:45 by Ozzie Gan MD) C. difficile colitis (Acute) Skin lesion (Acute 04/19/17) Neuropathy of right foot (Acute 01/21/15) Generalized weakness (Acute) Fecal incontinence (Acute) Illiterate (Acute) Bilateral inguinal hernia without obstruction or gangrene (Acute) Edentulous (Acute) Former smoker (Acute) Diarrhea (Acute) Hallucinations (Acute) Worsening headaches (Acute) Rotator cuff tear, right (Acute) Arm pain (Acute) Low back pain (Acute) Wears hearing aid in both ears (Acute) Tubular adenoma of colon (Acute) Abdominal pain (Acute) Obesity (Chronic) Left leg numbness (Acute) Right leg numbness (Acute) Facial pain (Acute) Abnormal stress test (Acute) ischemic changes in inferior and lateral leads - needs cath LFT elevation (Acute) Sleep apnea (Acute) Encounter for annual physical exam (Acute) Tachycardia (Acute) Migraine headache without aura (Acute) Conductive hearing loss, external ear (Acute) Carpal tunnel syndrome (Acute) Foot pain (Acute) Ventricular arrhythmia (Acute 12/16/06) Vivid dream (Acute 02/08/17) Sensorineural hearing loss (SNHL), bilateral (Chronic) Chronic left-sided low back pain with left-sided sciatica (Acute) Unspecified intellectual disabilities (Chronic) IQ-53 Reduced libido (Chronic 04/01/11) Peptic reflux disease (Chronic) Multiple somatic complaints (Chronic) Depressive disorder (Chronic) with psychotic features hears voices Anxiety (Chronic) Alcohol intake above recommended sensible limits (Chronic) Medical History Syrinx of spinal cord (06/13/17) Hyperlipidemia (09/19/12) Gout (06/08/17) Diabetes mellitus (09/19/12) DISH (diffuse idiopathic skeletal hyperostosis) (03/09/17) Carotid stenosis, right (07/01/16) per ulatrsound May 2016. Asymptomatic. Needs yearly ultrasound follow-up. 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) Weakness of right side of body (05/26/16) Carpal tunnel syndrome Right facial numbness (05/26/16) OCCASIONALLY Plantar fascia syndrome (11/04/14) Neuropathy of right foot (01/21/15) CVA (cerebral vascular accident) Surgical History S/P laparoscopic appendectomy History of esophagogastroduodenoscopy History of shoulder surgery History of tooth extraction Status post wrist surgery Family History Mother , AGE 56 Essential hypertension Leukemia Stomach cancer Father , AGE 85 Essential hypertension Depression Stroke Alcohol abuse A-fib Heart disease Sister Essential hypertension Heart disease Hyperlipidemia Sister Essential hypertension Cancer skin Sister No problems noted. Maternal Grandfather , AGE 68 Essential hypertension Heart disease Paternal Grandfather , AGE 83 Essential hypertension Stomach cancer Colon cancer Maternal Grandmother , AGE 89 Asthma Paternal Grandmother , AGE 84 Stroke Asthma Social History Smoking/Tobacco Use Status: Former Tobacco Use tobacco type: cigarettes Quit Date: 04/18/81 Tobacco: How many years used: 35 Smokeless tobacco user: chewing tobacco Second Hand Exposure: Yes Smoking risk assessment performed?: Yes Alcohol Intake: never Drug use: Never Substance use type: does not use Caregiver/Support person: No Household members: spouse Housing: house Communication Needs: Hard of Hearing, Corrective Lenses and Cannot Read Do you need help understanding health information?: Rarely 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 Pets and animals: Yes Pets and animals: cat(s) Sexually active: No Do you think of yourself as: straight/heterosexual Current gender identity: male What is your relationship status?: How often do you talk on the phone with friends or family?: three or more times per week How often do you get together with friends or relatives?: once per week How often do you attend pentecostalism or scientology services?: 1-3 times per year Do you belong to any clubs or organized social groups?: no Panel score (0-1 are the most socially isolated patients): 2 What type of physical activity do you participate in: walking and aerobic Duration: 15-30 minutes/day Frequency: 3-4 times per week Tatianna/Bahai: L[employer] Special tatianna needs: No Seatbelt use: always Helmet use: No Drive intox or ride w/intox 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
--- NOTE | 2024-04-11 20:15 | DI.CT_ITS ---
Exam(s) CT ABDOMEN PELVIS W EXAM: CT ABDOMEN PELVIS W CLINICAL HISTORY: post op from [facility] on the , worsening pain now. TECHNIQUE: Imaging Protocol: Axial computed tomography images with coronal and sagittal reformatted images were created and reviewed CONTRAST MATERIAL: Intravenous: Omnipaque 350 Contrast volume:85 ml Oral: No COMPARISON: CT CT ABDOMEN PELVIS W from 03/31/2024 FINDINGS: ABDOMEN and PELVIS: Lung Bases: No acute findings. Stable trace pericardial fluid Liver: Enlarged. Mild hepatic steatosis. No suspicious mass. Gallbladder and biliary tract: No radiodense calculus. No biliary dilation. Pancreas: Normal density. No abnormal calcifications or inflammatory process. No evidence of mass. Spleen: Normal. Kidneys: Normal size, contour and axis. No radiodense stones. No obstructive uropathy. No suspicious masses seen. Adrenal glands: No masses seen. Vasculature: Abdominal aorta non-dilated. Soft tissues: Bilateral fat containing inguinal hernias. Mild stranding at the level of the umbilicu s and or abdominal wall consistent with recent surgery. No evidence of abscess or gas collection. Bladder: Mild wall thickening. No calculi.No focal mass. Bowel: No obstruction. No bowel wall thickening. Status post appendectomy. Normal quantity of stoo l. Peritoneal cavity: No ascites. No focal collection. No mesenteric inflammatory response. No free air . Bones: Unremarkable for age. Reproductive organs: Prostate is mildly enlarged. Lymph nodes: No pathologically enlarged lymph nodes. IMPRESSION:: Status post appendectomy. No evidence of abscess collection. The bowel is of unremark able. Postsurgical changes in the anterior abdominal wall. No evidence of abscess or abnormal gas collecti on. RADIATION DOSE DELIVERED: 889.16mGy.cm Total DLP DATA REPOSITORY: All CT scans at this facility are submitted to the National Radiology Data Registry (NRDR) Dose Index Registry (DIR) with the [employer] (ACR). RADIATION OPTIMIZATION: All CT scans at this facility use at least one of these dose optimization te chniques: automated exposure control; mA and/or kV adjustment per patient size (includes targeted exa ms where dose is matched to clinical indication); or iterative reconstruction.
[2024-04-11 20:51] LABS: Abs Immature Grans 0.06 10^3/uL (0.0-0.06); Basophils % 0.3 %; HGB 16.4 g/dL (13.5-17.5); Immature Grans % 0.4 %; Lymphocytes % 10.5 %; MCH 29.8 pg (27.0-33.0); MCHC 33.5 % (32.0-36.0); MCV 89 fL (80-95); MPV 10.1 fL (8.0-11.0); Monocytes % 10.3 %; Neutrophils % 76.5 %; Platelet Count 243 10^3/uL (130-400); RBC 5.51 10^6/uL (4.36-5.78); RDW 12.9 % (11.8-14.1); RDW-SD 42.2 fL; WBC 14.34 10^3/uL (4.4-10.8)
[2024-04-11 20:52] LABS: Absolute Basophil Count 0.04 10^3/uL (0.0-0.2); Absolute Eosinophil Count 0.29 10^3/uL (0.0-0.7); Absolute Lymphocyte Count 1.51 10^3/uL (1.2-3.4); Absolute Monocyte Count 1.48 10^3/uL (0.1-0.8); Absolute Neutrophil Count 10.97 10^3/uL (1.2-6.7)
[2024-04-11 20:53] LABS: Lactate 2.1 mmol/L (0.6-1.4)
[2024-04-11] MEDS: Normal Saline - Diluent 50 ML VIAL IJ (21:02)
[2024-04-11] MEDS: Omnipaque 350 MG/ML 100 ML BTL IJ (21:03)
[2024-04-11 21:04] LABS: Lipase 61 U/L (<78)
[2024-04-11 21:10] LABS: ALT 39 U/L (16-63); AST 17 U/L (15-37); Albumin 3.6 g/dL (3.4-5.0); Alkaline Phosphatase 103 U/L (46-116); Anion Gap 10.1 mmol/L (3-11); BUN 14 mg/dL (7-18); Bilirubin, Total 0.38 mg/dL (0.2-1.0); CO2 26.9 mmol/L (21.0-32.0); Chloride 102 mmol/L (98-107); Estimated GFR 86.16 (mL/min/1.73m2); Glucose 169 mg/dL (74-106); Potassium 3.8 mmol/L (3.5-5.1); Sodium 139 mmol/L (136-145); Total Protein 7.1 g/dL (6.4-8.2)
[2024-04-11 21:14] LABS: Calcium 8.5 mg/dL (8.5-10.1)
--- NOTE | 2024-04-11 21:40 | DI.VRAD_ITS ---
PROCEDURE INFORMATION: Exam: CT Abdomen And Pelvis With Contrast Exam date and time: 04/11/2024 20:57 Age: 58 years old Clinical indication: Abdominal pain; Prior surgery; Surgery date: <1 month; Surgery type: Post op from [facility] on the ; Additional info: Post op from [facility] on the , worsening pain now TECHNIQUE: Imaging protocol: Computed tomography of the abdomen and pelvis with contrast. Contrast material: OMNI 350; Contrast volume: 85 ml; Contrast route: INTRAVENOUS (IV); COMPARISON: CT ABDOMEN PELVIS W 03/31/2024 09:29 FINDINGS: Heart: Small dependent pericardial fluid, similar to prior. Liver: Fatty liver with no mass lesions. Gallbladder and biliary ducts: The gallbladder is contracted. No significant biliary dilation or radiopaque stones in the biliary tree. Pancreas: No ductal dilation. No mass . Spleen: No splenomegaly or suspicious lesions. Adrenal glands: No suspicious mass. Kidneys and ureters: No hydronephrosis. No masses. Stomach and bowel: Submucosal fat deposition in the colon, likely habitus and or diet related. Minor residual wall thickening in the cecum. No focal pathology in the small bowel. Appendix: Appendectomy since prior, satisfactory appearance. No postoperative collections. Intraperitoneal space: No free air. No significant fluid collection. Vasculature: No abdominal aortic aneurysm. Lymph nodes: No significantly enlarged lymph nodes. Urinary bladder: Mild probable chronic outlet obstructive changes of the urinary bladder. Reproductive: Moderate prostatic enlargement. Bones/joints: No acute fracture or subluxation. Soft tissues: Mild dependent subcutaneous edema. Small fat-containing right inguinal hernia. Moderate fat-containing left inguinal hernia. Minor post laparoscopy changes in the ventral abdominal wall. No collections. IMPRESSION: 1. Appendectomy since prior, satisfactory appearance. No postoperative collections. 2. Minor residual colitis of the cecum. 3. Incidental findings as described. Dictated and Authenticated by: Diane Green MD. Ordering:JOVANA Horne MD
[2024-04-11 22:29] LABS: Bilirubin Negative (Negative); Blood Negative (Negative); Clarity Clear (Clear); Glucose >=1000 mg/dL (Negative); Ketones Negative (Negative); Leukocyte Esterase Negative (Negative); Nitrite Negative (Negative); Urobilinogen 0.2 mg/dL (Up to 0.2); pH 6.5 (5-8)
[2024-04-11 22:37] LABS: Bacteria Negative HPF (Negative); C & S Indicated? No; Casts Negative LPF (Negative); Crystals Negative HPF (Negative); Epithelial Cells Rare HPF (Negative); Mucus Negative (Negative); RBC 0-2 HPF (0-2); WBC Negative HPF (0-5)
[2024-04-11 23:35] LABS: C Diff PCR Positive (Negative)
[2024-04-11 23:41] VITALS: BP 138/72; PULSE 72; RESP 18; TEMP 37.1; O2SAT 95
[2024-04-11] MEDS: Vancomycin 125 MG CAP PO (23:49)
[2024-04-11] MEDS: ACETAMINOPHEN 1,000 MG/100 ML BAG 400 MG IVPB (23:50)
[2024-04-12] MEDS: Vancomycin 125 MG CAP PO (00:08)
[2024-04-12 00:14] VITALS: BP 138/72; PULSE 72; RESP 18; TEMP 37.1; O2SAT 95
== END 2024-04-12 00:14 | disposition home or self-care (01) ==
PROVIDERS: Emergency Provider Emergency Medicine; PCP Physician Assistant
DX: R10.32 Left lower quadrant pain (principal); A04.72 Enterocolitis due to Clostridium difficile, not specified as recurrent; Z98.890 Other specified postprocedural states; R19.7 Diarrhea, unspecified
CPT/HCPCS: 36415; 80053; 83690; 87493; 96365; 99285; 74177; 81003; 81015; 83605; 85025; 99284; J0131; J3490

== ENCOUNTER → 2024-04-16 12:56 | Outpatient (BNVA) | payer MEDICARE, MEDICAID, SELFPAY | PROVIDERS: PCP Physician Assistant; Referring Provider Physician Assistant; Visit Provider Surgery ==

== ENCOUNTER 2024-04-16 13:36 | Emergency (ER) | payer MEDICARE, MEDICAID, SELFPAY ==
[2024-04-16] VITALS (11 sets, daily range): BP systolic 119–138; BP diastolic 66–83; PULSE 79–100; RESP 10–20; TEMP 36.6; O2SAT 92–94
--- NOTE | 2024-04-16 13:45 | RT.EKG_ITS ---
APPROVED REPORT Exam: Resting ECG Reason for Exam: chest pain Patient Location: E HR:84 bpm ECG Measurements Heart Rate 84 AXIS NJ 143 P 63 QRSd 87 QRS 41 QT 340 T -63 QTc 402 Conclusion Sinus arrhythmia...V-rate 66- 96, variation>10% physician: Q wave in III, no stemi, unchanged from prior ekg on 04/01/24
--- NOTE | 2024-04-16 13:50 | DI.CT_ITS ---
Exam(s) CT CHEST PE ABD PELVIS W EXAM: CT CHEST PE ABD PELVIS W CLINICAL HISTORY: chest pain, recent surgery, recent ruptured appe, eval for infection. TECHNIQUE: Imaging Protocol: Axial computed tomography images with coronal and sagittal reformatted images were created and reviewed. Computer aided detection (CAD) was utilized. CONTRAST MATERIAL: Intravenous: Omnipaque 350 Contrast volume:100 ml Oral: no COMPARISON: CT CT ABDOMEN PELVIS W from 04/11/2024 FINDINGS: CHEST: Tracheobronchial tree: Patent. Pulmonary parenchyma: No consolidation or dominant measurable mass. Mild bilateral multifocal atelec tasis. Pleura: No effusion or pneumothorax. Mediastinum: Within normal limits. Aorta: Thoracic portion non-dilated. Pulmonary arteries: Well opacified. No visible emboli. Heart: No pericardial effusion. Bones: Unremarkable for age. No lytic or blastic lesions.No compression fractures. Soft tissues: Unremarkable. ABDOMEN and PELVIS: Liver: Normal density. No measurable mass. Gallbladder and biliary tract: No evidence of stones or wall thickening. No biliary dilatation. Pancreas: Normal density, no abnormal calcifications or inflammatory process. Spleen: Normal. Kidneys: Normal size, contour and axis. No radiodense stones. No obstructive uropathy. No suspicious masses seen. Adrenal glands: No masses seen. Aorta: Abdominal portion non-dilated. Lymph nodes: Within normal limits. Soft tissues: Bilateral fatty containing inguinal hernias. Minimal stranding in the anterior abdomin al wall and umbilical region consistent with recent surgery. Bladder: Unremarkable. Bowel: No obstruction or bowel wall thickening. Status post appendectomy. Normal quantity of stool . Peritoneal cavity: No ascites. No focal collection. No mesenteric inflammatory response. No free ai r. Bones: Unremarkable for age. Reproductive organs: Enlarged prostate. IMPRESSION: No acute abnormality in the chest, abdomen or pelvis. RADIATION DOSE DELIVERED: Total DLP DATA REPOSITORY: All CT scans at this facility are submitted to the National Radiology Data Registry (NRDR) Dose Index Registry (DIR) with the [employer] (ACR). RADIATION OPTIMIZATION: All CT scans at this facility use at least one of these dose optimization te chniques: automated exposure control; mA and/or kV adjustment per patient size (includes targeted exa ms where dose is matched to clinical indication); or iterative reconstruction.
[2024-04-16 14:42] LABS: Lactate 1.9 mmol/L (0.6-1.4)
[2024-04-16 14:43] LABS: Abs Immature Grans 0.05 10^3/uL (0.0-0.06); Absolute Basophil Count 0.07 10^3/uL (0.0-0.2); Absolute Eosinophil Count 0.12 10^3/uL (0.0-0.7); Absolute Lymphocyte Count 1.69 10^3/uL (1.2-3.4); Absolute Monocyte Count 0.77 10^3/uL (0.1-0.8); Absolute Neutrophil Count 4.87 10^3/uL (1.2-6.7); Basophils % 0.9 %; Eosinophils % 1.6 %; HCT 50.5 % (40.0-50.0); HGB 16.8 g/dL (13.5-17.5); Immature Grans % 0.7 %; Lymphocytes % 22.3 %; MCH 29.5 pg (27.0-33.0); MCHC 33.3 % (32.0-36.0); MCV 89 fL (80-95); MPV 10.1 fL (8.0-11.0); Monocytes % 10.2 %; Neutrophils % 64.3 %; Platelet Count 261 10^3/uL (130-400); RBC 5.69 10^6/uL (4.36-5.78); RDW 12.9 % (11.8-14.1); RDW-SD 41.8 fL; WBC 7.57 10^3/uL (4.4-10.8)
[2024-04-16 15:09] LABS: ALT 47 U/L (16-63); AST 32 U/L (15-37); Albumin 3.9 g/dL (3.4-5.0); Alkaline Phosphatase 95 U/L (46-116); Anion Gap 11.5 mmol/L (3-11); BUN 10 mg/dL (7-18); Bilirubin, Total 0.39 mg/dL (0.2-1.0); CO2 26.5 mmol/L (21.0-32.0); CREATININE 0.8 mg/dL (0.70-1.30); Chloride 104 mmol/L (98-107); Estimated GFR 101.32 (mL/min/1.73m2); Glucose 127 mg/dL (74-106); Lipase 50 U/L (<78); Potassium 3.8 mmol/L (3.5-5.1); Sodium 142 mmol/L (136-145); Total Protein 7.6 g/dL (6.4-8.2); Troponin I < 4 ng/L (<or=76)
[2024-04-16 15:13] LABS: Calcium 9.3 mg/dL (8.5-10.1)
[2024-04-16 15:17] LABS: Procalcitonin < 0.10 ng/mL
--- NOTE | 2024-04-16 15:42 | ED.GENADUL_ITS ---
Discharge Plan Disposition Patient Disposition: Home Condition: Good Discharge Details Chief Complaint: Abd Prob Clinical Impression: Epigastric discomfort Primary Care Provider: Alvaro Lee ED Provider: Anthony Gandhi Home Meds and New Rx's Prescriptions: No Action aspirin 81 mg tablet,delayed release (DR/EC) 81 mg PO DAILY cyproheptadine 4 mg tablet See Rx Instructions PO HS Qty: 180 3RF Rx Instructions: Take 4 mg at bedtime every night. Ok to take an additional 4 mg tab once daily as needed for headaches. venlafaxine 37.5 mg capsule,extended release 24hr 37.5 mg PO DAILY (DME) blood-glucose meter Misc See Dose Instructions .ROUTE .MEDSUPPLY Qty: 1 0RF Dose Instruction: As directed Rx Instructions: One touch verio E11.9 Once daily testing Balanced B-100 Complex 100 mg tablet extended release 1 tab PO DAILY Jardiance 25 mg tablet 25 mg PO QAM Qty: 90 5RF metoprolol succinate 25 mg tablet extended release 24 hr 25 mg PO DAILY risperidone [Risperdal] 2 mg tablet 2 mg PO BID multivitamin 1 EACH tablet 1 tab PO DAILY (DME) lancets [FreeStyle Lancets] 28 gauge misc See Rx Instructions .ROUTE .MEDSUPPLY Qty: 100 5RF Rx Instructions: daily testing E11.9. One Touch Verio Lancets rosuvastatin 10 mg tablet 10 mg PO HS Qty: 90 6RF nystatin 100,000 unit/gram cream 1 - 2 applic TP BID PRN (Reason: rash) Qty: 30 0RF (DME) Blood Glucose Test Strip See Rx Instructions .ROUTE .MEDSUPPLY Qty: 100 7RF Rx Instructions: One Touch Verio test strips E11.9. Test daily (DME) lancets [OneTouch Delica Lancets] 33 gauge misc See Rx Instructions .ROUTE DAILY Qty: 100 5RF Rx Instructions: E11.9 daily lisinopril 10 mg tablet 10 mg PO DAILY Qty: 90 4RF allopurinol 300 mg tablet 300 mg PO DAILY Qty: 90 4RF venlafaxine 75 mg capsule,extended release 24hr 75 mg PO DAILY Qty: 90 5RF gabapentin 300 mg capsule 300 mg PO BID Qty: 180 5RF esomeprazole magnesium [Nexium] 20 mg capsule,delayed release(DR/EC) 20 mg PO HS Qty: 90 3RF naproxen sodium [Aleve] 220 MG tablet 220 mg PO BID PRN vancomycin [Vancocin] 125 mg capsule 125 mg PO QID Qty: 38 0RF tramadol 50 mg tablet 50 mg PO Q4H PRNQty: 14 0RF Bio-K plus 50 billion cell capsule,delayed release(DR/EC) 1 cap PO DAILY Qty: 30 0RF glipizide 10 mg tablet 10 mg PO DAILY Patient Comments: TAKE ONE TABLET BY MOUTH EVERY DAY Discharge Instructions Instructions: Abdominal Pain, Adult ED Additional Instructions: At this time your workup is returned very reassuring with no significant abnormalities or evidence of infection cardiac abnormality or life-threatening etiology. Please continue to take your oral vancomycin as prescribed. If you notice any worsening of your symptoms, or any new symptoms such as vomiting, diarrhea, fever, chills, shortness of breath, chest pain, numbness, weakness, or fainting , please return immediately to the emergency department for reevaluation. Please follow up with your primary care provider as soon as possible for reassessment and reevaluation. As always, it was a pleasure participating in your medical care today. Referrals: Alvaro Lee [Primary Care Provider] - Trina Ibarra DO [OSTEOPATHIC DOCTOR] - [facility] General Date/Time Provider Initiated Documentation: 04/16/24 13:42 . HPI Narrative: 58-year-old male with a past medical history of recent ruptured appendectomy 5 days ago on with surgical management, subsequent C. difficile colitis after antibiotic therapy, currently now on oral vancomycin, as well as a past medical history of carotid artery stenosis, suspected coronary artery disease, previous stroke, high cholesterol, hypertension, diabetes mellitus, presents today for evaluation of epigastric pain with slight radiation to his chest. Patient states that starting at around 8 AM this morning he had some mild epigastric discomfort that then radiated to his chest. He states that it started out as burning, but then became slightly achy. He did eat today and this did not seem to change his symptoms. He denies any exertional dyspnea or exertional worsening of his symptoms. He denies any tearing or ripping sensation. No pain in his arms neck or shoulder. No other pains at this time. Related Data Home Medications ?Medication ?Instructions ?Recorded ?Confirmed multivitamin 1 tab PO DAILY 07/13/12 04/16/24 naproxen sodium 220 mg tablet 220 mg PO BID PRN 12/19/15 04/16/24 (Aleve) aspirin 81 mg tablet,delayed 81 mg PO DAILY 03/25/21 04/16/24 release blood-glucose meter #1 ea 05/14/21 04/16/24 lancets 28 gauge (FreeStyle #100 ea 06/18/21 04/16/24 Lancets) vit B complex 100 combo no.2 100 1 tab PO DAILY 06/18/21 04/16/24 mg tablet,extended release (Balanced B-100 Complex) empagliflozin 25 mg tablet 25 mg PO QAM #90 tabs 06/01/22 04/16/24 (Jardiance) rosuvastatin 10 mg tablet 10 mg PO HS #90 tabs 06/21/22 04/16/24 nystatin 100,000 unit/gram topical 1 - 2 applic topical BID PRN rash 07/05/22 04/16/24 cream #30 grams blood sugar diagnostic (Blood #100 ea 07/14/22 04/16/24 Glucose Test strips) lancets 33 gauge (OneTouch Delica #100 ea 09/14/22 04/16/24 Lancets) allopurinol 300 mg tablet 300 mg PO DAILY #90 tabs 06/06/23 04/16/24 esomeprazole magnesium 20 mg 20 mg PO HS #90 caps 06/06/23 04/16/24 capsule,delayed release (Nexium) gabapentin 300 mg capsule 300 mg PO BID #180 caps 06/06/23 04/16/24 lisinopril 10 mg tablet 10 mg PO DAILY #90 tabs 06/06/23 04/16/24 venlafaxine 75 mg capsule,extended 75 mg PO DAILY #90 caps 06/06/23 04/16/24 release 24 hr cyproheptadine 4 mg tablet See Rx Instructions PO HS migraine 06/07/23 04/16/24 headache #180 tabs metoprolol succinate 25 mg 25 mg PO DAILY 07/27/23 04/16/24 tablet,extended release 24 hr venlafaxine 37.5 mg 37.5 mg PO DAILY 10/13/23 04/16/24 capsule,extended release 24 hr risperidone 2 mg tablet (Risperdal) 2 mg PO BID 11/10/23 04/16/24 L. acidophilus,casei,rhamnosus 50 1 cap PO DAILY #30 caps 04/01/24 04/16/24 billion cell capsule,delayed release (Bio-K plus) tramadol 50 mg tablet 50 mg PO Q4H PRN #14 tabs 04/01/24 04/16/24 glipizide 10 mg tablet 10 mg PO DAILY 04/02/24 04/16/24 vancomycin 125 mg capsule 125 mg PO QID #38 caps 04/11/24 04/16/24 (Vancocin) Previous Rx's ?Medication ?Instructions ?Recorded blood-glucose meter #1 ea 05/14/21 lancets 28 gauge (FreeStyle #100 ea 06/18/21 Lancets) empagliflozin 25 mg tablet 25 mg PO QAM #90 tabs 06/01/22 (Jardiance) rosuvastatin 10 mg tablet 10 mg PO HS #90 tabs 06/21/22 nystatin 100,000 unit/gram topical 1 - 2 applic topical BID PRN rash 07/05/22 cream #30 grams blood sugar diagnostic (Blood #100 ea 07/14/22 Glucose Test strips) lancets 33 gauge (OneTouch Delica #100 ea 09/14/22 Lancets) allopurinol 300 mg tablet 300 mg PO DAILY #90 tabs 06/06/23 esomeprazole magnesium 20 mg 20 mg PO HS #90 caps 06/06/23 capsule,delayed release (Nexium) gabapentin 300 mg capsule 300 mg PO BID #180 caps 06/06/23 lisinopril 10 mg tablet 10 mg PO DAILY #90 tabs 06/06/23 venlafaxine 75 mg capsule,extended 75 mg PO DAILY #90 caps 06/06/23 release 24 hr cyproheptadine 4 mg tablet See Rx Instructions PO HS migraine 06/07/23 headache #180 tabs L. acidophilus,casei,rhamnosus 50 1 cap PO DAILY #30 caps 04/01/24 billion cell capsule,delayed release (Bio-K plus) tramadol 50 mg tablet 50 mg PO Q4H PRN #14 tabs 04/01/24 vancomycin 125 mg capsule 125 mg PO QID #38 caps 04/11/24 (Vancocin) Allergies Allergy/AdvReac Type Severity Reaction Status Date / Time Penicillins Allergy Unknown Other (See Verified 04/16/24 13:12 Comment) venom-honey bee Allergy Swelling Verified 04/16/24 13:12 metformin AdvReac Intermediate diarrhea Verified 04/16/24 13:12 diphenhydramine HCl AdvReac hyper Verified 04/16/24 13:12 General Stated Complaint: Abd Prob SIS: 3 Exam Narrative Exam Narrative: 1.Const: Well-nourished, Well-developed, appearing stated age 2.Eyes: PERRL, no conjunctival injection, and symmetrical lids. 3.ENT: Atraumatic external nose and ears. Moist MM. Neck: Symmetric, trachea midline, No thyromegaly. 4.CVS: +S1/S2, Peripheral pulses 2+ and equal in all extremities. Brisk capillary refill in all extremities. 5.RESP: Unlabored respiratory effort. Clear to auscultation bilaterally. No wheezes rales or rhonchi 6.GI: Soft, Nontender/Nondistended, No hepatosplenomegaly. No guarding or rebound. Mild postoperative bruising. No focal tenderness. Minimal epigastric achiness. 7.MSK: Normocephalic/Atraumatic, Extremities w/o deformity or ttp No cyanosis or clubbing, Normal movement of all extremities 8.Skin: Warm, Dry. No rashes or lesions. 9.Neuro: retirement assistant II-XII grossly intact. Sensation grossly intact, no focal neurologic deficits. 10.Psych: (AAO) x3. Appropriate mood and affect Course Vital Signs Vital signs: Vital Signs Temperature 36.6 C 04/16/24 13:45 Pulse 100 H 04/16/24 13:45 Respiratory Rate 20 04/16/24 13:45 Blood Pressure 138/83 04/16/24 13:45 Pulse Oximetry 94 04/16/24 13:45 Temperature 36.6 C 04/16/24 13:49 Pulse 100 H 04/16/24 13:49 Respiratory Rate 20 04/16/24 13:49 Blood Pressure 138/83 04/16/24 13:49 Blood Pressure Position Sitting 04/16/24 13:49 Pulse Oximetry 94 04/16/24 13:49 Oxygen Delivery Method Room Air 04/16/24 13:49 Oxygen Flow Rate 0 04/16/24 13:49 Lab/Test Results Lab/Test Results: 04/16/24 14:20 Blood Blood Culture - Pending 04/16/24 13:42 Blood Blood Culture - Pending Laboratory Tests Range/Units 04/16/24 04/16/24 04/16/24 14:20 14:20 14:20 WBC (4.4-10.8) 10^3/uL 7.57 RBC (4.36-5.78) 10^6/uL 5.69 Hgb (13.5-17.5) g/dL 16.8 Hct (40.0-50.0) % 50.5 H MCV (80-95) fL 89 MCH (27.0-33.0) pg 29.5 MCHC (32.0-36.0) % 33.3 RDW (11.8-14.1) % 12.9 Plt Count (130-400) 10^3/uL 261 MPV (8.0-11.0) fL 10.1 Immature Gran % % 0.7 Neutrophils % % 64.3 Lymphocytes % % 22.3 Monocytes % % 10.2 Eosinophils % % 1.6 Basophils % % 0.9 Nucleated RBC % (0.0-0.3) % 0.0 Absolute Neutrophils (1.2-6.7) 10^3/uL 4.87 Absolute Lymphocytes (1.2-3.4) 10^3/uL 1.69 Absolute Monocytes (0.1-0.8) 10^3/uL 0.77 Absolute Eosinophils (0.0-0.7) 10^3/uL 0.12 Absolute Basophils (0.0-0.2) 10^3/uL 0.07 VBG Lactate (0.6-1.4) mmol/L 1.9 H Sodium (136-145) mmol/L 142 Potassium (3.5-5.1) mmol/L 3.8 Chloride (98-107) mmol/L 104 Carbon Dioxide (21.0-32.0) mmol/L 26.5 Anion Gap (3-11) mmol/L 11.5 H BUN (7-18) mg/dL 10 Creatinine (0.70-1.30) mg/dL 0.8 Est GFR (CKD-EPI 2020) (mL/min/1.73m2) 101.32 Glucose (74-106) mg/dL 127 H Calcium (8.5-10.1) mg/dL 9.3 Total Bilirubin (0.2-1.0) mg/dL 0.39 AST (15-37) U/L 32 ALT (16-63) U/L 47 Alkaline Phosphatase (46-116) U/L 95 Troponin I (<or=76) ng/L < 4 Cancelled Total Protein (6.4-8.2) g/dL 7.6 Albumin (3.4-5.0) g/dL 3.9 Lipase (<78) U/L 50 Cancelled Procalcitonin ng/mL < 0.10 Medical Decision Making 58-year-old male with a past medical history of recent ruptured appendectomy 5 days ago on with surgical management, subsequent C. difficile colitis after antibiotic therapy, currently now on oral vancomycin, as well as a past medical history of carotid artery stenosis, suspected coronary artery disease, previous stroke, high cholesterol, hypertension, diabetes mellitus, presents today for evaluation of epigastric pain with slight radiation to his chest. Patient states that starting at around 8 AM this morning he had some mild epigastric discomfort that then radiated to his chest. He states that it started out as burning, but then became slightly achy. He did eat today and this did not seem to change his symptoms. He denies any exertional dyspnea or exertional worsening of his symptoms. He denies any tearing or ripping sensation. No pain in his arms neck or shoulder. No other pains at this time. Exam demonstrates a well-appearing male. No significant epigastric tenderness or discomfort. No guarding or rebound. Vital signs stable. Differential is broad but includes postoperative infection or complication, less likely PE. Cardiac etiology on the differential but unlikely. Will evaluate for concerning etiologies, monitor closely and reassess. Patient does not want a thing for pain at this point. 5:14 PM PM Laboratory workup has returned, no white count bandemia or left shift. Lactate slightly elevated at 1.9. Electrolytes normal, troponin normal, procalcitonin normal, lipase normal, CT imaging demonstrates no acute process. No evidence of PE or other abnormality in the abdomen. Patient feels well. Patient stable for discharge. No hemodynamic instability. Labs demonstrate no evidence of sepsis. Serial troponins are negative for evidence of abnormality. EKG benign. Troponins are all less than 4. Patient ruled out. Patient stable for discharge. Recommend continued outpatient vancomycin oral therapy for C. difficile. Discussed red flags which to return. I have extensively reviewed the treatment plan and discharge instructions with the patient. I have addressed all patient concerns at this time. The patient was made aware of what symptoms to monitor for that would warrant a return to the emergency department. Discussed the plan with the patient, they demonstrate verbal understanding and agreement with our assessment and plan at this time. The documentation in this chart was dictated using [employer] dictation software. Please excuse any dictation errors. FINDINGS: CHEST: Tracheobronchial tree: Patent. Pulmonary parenchyma: No consolidation or dominant measurable mass. Mild bilateral multifocal atelectasis. Pleura: No effusion or pneumothorax. Mediastinum: Within normal limits. Aorta: Thoracic portion non-dilated. Pulmonary arteries: Well opacified. No visible emboli. Heart: No pericardial effusion. Bones: Unremarkable for age. No lytic or blastic lesions.No compression fractures. Soft tissues: Unremarkable. ABDOMEN and PELVIS: Liver: Normal density. No measurable mass. Gallbladder and biliary tract: No evidence of stones or wall thickening. No biliary dilatation. Pancreas: Normal density, no abnormal calcifications or inflammatory process. Spleen: Normal. Kidneys: Normal size, contour and axis. No radiodense stones. No obstructive uropathy. No suspicious masses seen. Adrenal glands: No masses seen. Aorta: Abdominal portion non-dilated. Lymph nodes: Within normal limits. Soft tissues: Bilateral fatty containing inguinal hernias. Minimal stranding in the anterior abdominal wall and umbilical region consistent with recent surgery. Bladder: Unremarkable. Bowel: No obstruction or bowel wall thickening. Status post appendectomy. Normal quantity of stool. Peritoneal cavity: No ascites. No focal collection. No mesenteric inflammatory response. No free air. Bones: Unremarkable for age. Reproductive organs: Enlarged prostate. IMPRESSION: No acute abnormality in the chest, abdomen or pelvis. Quality:[facility] Health Related Social Needs: No Data to Display PFSH All Active Problems (Updated 04/16/24 @ 17:15 by Anthony Gandhi DO) Epigastric discomfort (Acute) Fever and chills (Acute) Acute abdominal pain in left lower quadrant (Acute) Left-sided chest wall pain (Acute) Metabolic dysfunction-associated steatohepatitis (MASH) (Acute) C. difficile colitis (Acute) Skin lesion (Acute 04/19/17) Neuropathy of right foot (Acute 01/21/15) Generalized weakness (Acute) Fecal incontinence (Acute) Illiterate (Acute) Bilateral inguinal hernia without obstruction or gangrene (Acute) Edentulous (Acute) Former smoker (Acute) Diarrhea (Acute) Hallucinations (Acute) Worsening headaches (Acute) Rotator cuff tear, right (Acute) Arm pain (Acute) Low back pain (Acute) Wears hearing aid in both ears (Acute) Tubular adenoma of colon (Acute) Abdominal pain (Acute) Obesity (Chronic) Left leg numbness (Acute) Right leg numbness (Acute) Facial pain (Acute) Abnormal stress test (Acute) ischemic changes in inferior and lateral leads - needs cath LFT elevation (Acute) Sleep apnea (Acute) Encounter for annual physical exam (Acute) Tachycardia (Acute) Migraine headache without aura (Acute) Conductive hearing loss, external ear (Acute) Carpal tunnel syndrome (Acute) Foot pain (Acute) Ventricular arrhythmia (Acute 12/16/06) Vivid dream (Acute 02/08/17) Sensorineural hearing loss (SNHL), bilateral (Chronic) Chronic left-sided low back pain with left-sided sciatica (Acute) Unspecified intellectual disabilities (Chronic) IQ-53 Reduced libido (Chronic 04/01/11) Peptic reflux disease (Chronic) Multiple somatic complaints (Chronic) Depressive disorder (Chronic) with psychotic features hears voices Anxiety (Chronic) Alcohol intake above recommended sensible limits (Chronic) Medical History Syrinx of spinal cord (06/13/17) Hyperlipidemia (09/19/12) Gout (06/08/17) Diabetes mellitus (09/19/12) DISH (diffuse idiopathic skeletal hyperostosis) (03/09/17) Carotid stenosis, right (07/01/16) per ulatrsound May 2016. Asymptomatic. Needs yearly ultrasound follow-up. 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) Weakness of right side of body (05/26/16) Carpal tunnel syndrome Right facial numbness (05/26/16) OCCASIONALLY Plantar fascia syndrome (11/04/14) Neuropathy of right foot (01/21/15) CVA (cerebral vascular accident) Surgical History S/P laparoscopic appendectomy History of esophagogastroduodenoscopy History of shoulder surgery History of tooth extraction Status post wrist surgery Family History Mother , AGE 56 Essential hypertension Leukemia Stomach cancer Father , AGE 85 Essential hypertension Depression Stroke Alcohol abuse A-fib Heart disease Sister Essential hypertension Heart disease Hyperlipidemia Sister Essential hypertension Cancer skin Sister No problems noted. Maternal Grandfather , AGE 68 Essential hypertension Heart disease Paternal Grandfather , AGE 83 Essential hypertension Stomach cancer Colon cancer Maternal Grandmother , AGE 89 Asthma Paternal Grandmother , AGE 84 Stroke Asthma Social History Smoking/Tobacco Use Status: Former Tobacco Use tobacco type: cigarettes Quit Date: 04/18/81 Tobacco: How many years used: 35 Smokeless tobacco user: chewing tobacco Second Hand Exposure: Yes Smoking risk assessment performed?: Yes Alcohol Intake: never Drug use: Never Substance use type: does not use Caregiver/Support person: No Household members: spouse Housing: house Communication Needs: Hard of Hearing, Corrective Lenses and Cannot Read Do you need help understanding health information?: Rarely 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 Pets and animals: Yes Pets and animals: cat(s) Sexually active: No Do you think of yourself as: straight/heterosexual Current gender identity: male What is your relationship status?: How often do you talk on the phone with friends or family?: three or more times per week How often do you get together with friends or relatives?: once per week How often do you attend confucianism or mosque services?: 1-3 times per year Do you belong to any clubs or organized social groups?: no Panel score (0-1 are the most socially isolated patients): 2 What type of physical activity do you participate in: walking and aerobic Duration: 15-30 minutes/day Frequency: 3-4 times per week Tatianna/Mormonism: Anglican Special tatianna needs: No Seatbelt use: always Helmet use: No Drive intox or ride w/intox truck driver's offsider: No Do you feel safe at home: Yes Victim of physical abuse: No Victim of emotional abuse: No Victim of sexual abuse: No Would you like helpful sources: No Additional Social history: unble to assess privately
[2024-04-16] MEDS: Omnipaque 350 MG/ML 100 ML BTL IJ (15:53)
[2024-04-16] MEDS: Normal Saline - Diluent 50 ML VIAL IJ (15:55)
[2024-04-16 16:48] LABS: Troponin I < 4 ng/L (<or=76)
[2024-04-16 17:59] LABS: Troponin I 4 ng/L (<or=76)
--- NOTE | 2024-04-17 14:14 | W.ED.FU ---
Date of service: 04/17/24 Time of Service: 14:14 Follow Up Plan: patient had a postive blood culture growing gram positive cocci in clusters, reviewed chart and had no white count or fevers so doubt this is a true positive. Called and spoke with pt and his and he is feeling better and has not had fevers so advised he can stay home and follow up with his providers, strict return precautions given.
== END 2024-04-16 18:16 | disposition home or self-care (01) ==
PROVIDERS: Emergency Provider Student in an Organized Health Care Education/Training Program; PCP Physician Assistant
DX: R10.13 Epigastric pain (principal); I10 Essential (primary) hypertension; E78.5 Hyperlipidemia, unspecified; E11.9 Type 2 diabetes mellitus without complications; Z86.73 Personal history of transient ischemic attack (TIA), and cerebral infarction without residual deficits; Z79.82 Long term (current) use of aspirin; Z79.84 Long term (current) use of oral hypoglycemic drugs
CPT/HCPCS: 36415; 71275; 74177; 80053; 83690; 84145; 87040; 87077; 93005; 99285; 83605; 84484; 85025; 87186; 93010; 99284; J3490

== ENCOUNTER → 2024-05-03 09:18 | Outpatient (BNVA) | payer MEDICARE, MEDICAID, SELFPAY | PROVIDERS: PCP Physician Assistant; Referring Provider Physician Assistant; Visit Provider Surgery | DX: Z48.815 Encounter for surgical aftercare following surgery on the digestive system (principal); Z90.49 Acquired absence of other specified parts of digestive tract ==

== ENCOUNTER → 2024-06-26 10:01 | Outpatient (BNVA) | payer MEDICARE, MEDICAID, SELFPAY | PROVIDERS: PCP Physician Assistant; Referring Provider Physician Assistant; Visit Provider Podiatrist | DX: M79.672 Pain in left foot (principal); E11.42 Type 2 diabetes mellitus with diabetic polyneuropathy; L25.9 Unspecified contact dermatitis, unspecified cause; L60.2 Onychogryphosis | CPT/HCPCS: 11719; 11750; 99204; 99214 ==

== ENCOUNTER 2024-06-26 16:22 | Outpatient (REF) | payer MEDICARE, MEDICAID, SELFPAY ==
--- NOTE | 2024-06-26 09:30 | SKI_PTH ---
PATIENT: Ozzie Chaudhary LOC: [facility] U#:[id number] AGE/SX: 59/M ROOM: RE06/26/[address]: Alvaro Lee : 1965 BED: DIS: 06/26/2024 SPEC #: [id number] RECD: 06/26/24 17:37 STATUS: XAVIER REKatya #: [id number] WEST: 06/26/24 09:[address]: Alvaro Lee DEPT: Surgical Specimen RECD BY: Valery Hopkins Tissues: 1 - SKIN BIOPSY(SHAVE/PUNCH) Procedures: SKIN LEVEL 4 Comments: [id number]
== END 2024-06-26 16:23 | disposition home or self-care (01) ==
LOC: NCHCN 16:22
PROVIDERS: PCP Physician Assistant; Visit Provider Physician Assistant
DX: D22.5 Melanocytic nevi of trunk (principal)
CPT/HCPCS: 88305

== ENCOUNTER → 2024-07-25 13:24 | Outpatient (BNVA) | payer MEDICARE, MEDICAID, SELFPAY | PROVIDERS: PCP Physician Assistant; Referring Provider Physician Assistant; Visit Provider Podiatrist | DX: L60.0 Ingrowing nail (principal); M79.672 Pain in left foot; E11.9 Type 2 diabetes mellitus without complications; G62.9 Polyneuropathy, unspecified; L25.9 Unspecified contact dermatitis, unspecified cause | CPT/HCPCS: 99213 ==

== ENCOUNTER → 2024-09-03 13:53 | Outpatient (BNVA) | payer MEDICARE, SELFPAY | PROVIDERS: PCP Physician Assistant; Referring Provider Physician Assistant; Visit Provider Nurse Practitioner Adult Health | DX: G43.009 Migraine without aura, not intractable, without status migrainosus (principal) | CPT/HCPCS: 99214 ==

== ENCOUNTER 2024-10-25 11:31 | Outpatient (REF) | payer MEDICARE, SELFPAY ==
[2024-10-25 16:12] LABS: Hemoglobin A1C 6.7 % (<5.7)
[2024-10-25 16:25] LABS: ALT 40 U/L (16-63); AST 21 U/L (15-37); Albumin 4.2 g/dL (3.4-5.0); Alkaline Phosphatase 90 U/L (46-116); Anion Gap 11.3 mmol/L (3-11); BUN 20 mg/dL (7-18); Bilirubin, Total 0.6 mg/dL (0.2-1.0); CO2 26.7 mmol/L (21.0-32.0); Calcium 9.0 mg/dL (8.5-10.1); Calculated LDL 60 mg/dL (<100); Chloride 101 mmol/L (98-107); Cholesterol 152 mg/dL (<200); Estimated GFR 100.69 (mL/min/1.73m2); Glucose 178 mg/dL (74-106); HDL Cholesterol 48 mg/dL (>or=40); Potassium 4.3 mmol/L (3.5-5.1); Sodium 139 mmol/L (136-145); Total Protein 7.3 g/dL (6.4-8.2); Triglyceride 223 mg/dL (<150)
== END 2024-10-25 11:32 | disposition home or self-care (01) ==
LOC: NCHCN 11:31
PROVIDERS: PCP Physician Assistant; Visit Provider Physician Assistant
DX: E11.9 Type 2 diabetes mellitus without complications (principal); E78.5 Hyperlipidemia, unspecified
CPT/HCPCS: 80053; 80061; 83036

== ENCOUNTER → 2024-10-30 13:17 | Outpatient (BNVA) | payer MEDICARE, SELFPAY | PROVIDERS: PCP Physician Assistant; Referring Provider Physician Assistant; Visit Provider Podiatrist | DX: L60.2 Onychogryphosis (principal); B35.1 Tinea unguium; M79.671 Pain in right foot; M79.672 Pain in left foot; E11.42 Type 2 diabetes mellitus with diabetic polyneuropathy; I73.89 Other specified peripheral vascular diseases; L60.3 Nail dystrophy; L60.8 Other nail disorders | CPT/HCPCS: 11719 ==

== ENCOUNTER → 2024-12-03 12:23 | Outpatient (BNVA) | payer MEDICARE, SELFPAY | PROVIDERS: PCP Physician Assistant; Referring Provider Physician Assistant; Visit Provider Nurse Practitioner Adult Health | DX: G43.009 Migraine without aura, not intractable, without status migrainosus (principal) | CPT/HCPCS: 99213 ==

== ENCOUNTER 2024-12-04 01:37 | Outpatient (CLI) | payer MEDICARE, SELFPAY ==
--- NOTE | 2024-12-04 | DI.MRI_ITS ---
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 IV CONTRAST injected was 20 mL Dotarem COMPARISON: MR MRI - THORACIC SPINE W/WO CONT from 07/04/2017 MR MR BRAIN WO from 11/09/2023 FINDINGS: Brain MRI of October 2023 did not reveal evidence of cerebellar tonsillar ectopia. OSSEOUS: There are no acute appearing thoracic vertebral fractures. There are no ominous osseous lesions in the thoracic vertebrae. There is no osseous encroachment upon the thoracic spinal column. THORACIC SPINAL CORD: There is no evidence of mass at the level the conus medullaris which is at T12-L1 level. There is mild prominence of the central channel/syringomyelia of the spinal cord from lower T7 level to upper T9 level. Maximum dimension of the central spinal cord canal at this level is 1.5 mm. There is no abnormal mass nor enhancement in the cord in this region nor proximal or distal to this region. There is also similar focal dilatation of the central channel at the upper T6 level. Diameter of the canal at this level is also 1.5 mm. Also no mass nor abnormal enhancement. There is also no abnormal compression of the thecal sac and spinal cord at these levels. There is no evidence of thoracic spinal cord dysraphism/diastomyelia. SIGNIFICANT INDIVIDUAL LEVEL FINDINGS: There are no disc herniations. PARASPINAL TISSUES: No significant masses nor fluid collections evident. IMPRESSION: 1. 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 There is also focal thin syringomyelia(1.5 mm) at the T6 level. 3. There is no evidence of focal cord swelling, focal cord atrophy, lesion within the spinal cord and/or conus medullaris nor evidence of external compression of the spinal cord. 4. No evidence of vertebral compression fractures and no significant kyphosis. DATA REPOSITORY:
[2024-12-04] MEDS: Normal Saline Flush 10 ML SYR IVP (12:26)
[2024-12-04] MEDS: Gadoterate meglumine 20 ML SYRINGE IVP (12:26)
== END 2024-12-04 01:57 ==
LOC: DI 01:37
PROVIDERS: PCP Physician Assistant; Visit Provider Physician Assistant
DX: G95.0 Syringomyelia and syringobulbia (principal)
CPT/HCPCS: 72157

== ENCOUNTER → 2025-03-05 13:12 | Outpatient (BNVA) | payer MEDICARE, SELFPAY | PROVIDERS: PCP Physician Assistant; Referring Provider Physician Assistant; Visit Provider Podiatrist | DX: L60.3 Nail dystrophy (principal); B35.1 Tinea unguium; E11.42 Type 2 diabetes mellitus with diabetic polyneuropathy; G60.8 Other hereditary and idiopathic neuropathies; L25.9 Unspecified contact dermatitis, unspecified cause; L60.8 Other nail disorders; L60.2 Onychogryphosis; R20.2 Paresthesia of skin | CPT/HCPCS: 11719 ==

== ENCOUNTER 2025-03-26 16:08 | Emergency (ER) | payer MEDICARE, SELFPAY ==
[2025-03-26 16:10] VITALS: BP 139/69; PULSE 90; RESP 16; TEMP 36.4; O2SAT 96
--- NOTE | 2025-03-26 16:15 | RT.EKG_ITS ---
APPROVED REPORT Exam: Resting ECG Reason for Exam: falls Patient Location: E HR:74 bpm ECG Measurements Heart Rate 74 AXIS CA 142 P 52 QRSd 87 QRS 34 QT 371 T 26 QTc 411 Conclusion Sinus rhythm...normal P axis, V-rate 60- 99 No STEMI
--- NOTE | 2025-03-26 16:15 | DI.CT_ITS ---
Exam(s) CT HEAD CERVICAL SPINE WO EXAM: CT HEAD CERVICAL SPINE WO CLINICAL HISTORY: Trauma. TECHNIQUE: Imaging Protocol: Axial computed tomography images with coronal and sagittal reformatted images were created and reviewed COMPARISON: CT HEAD NECK FACIAL WO from 11/12/2017 FINDINGS: BRAIN: There are no skull fractures nor fluid in the visualized paranasal sinuses. There is no evidence of intracranial hemorrhage, mass effect, or shift of midline structures. There are no extra-axial fluid collections. The ventricles are not enlarged or shifted and there is no blood within the ventricular system nor within the basal cisterns. CERVICAL SPINE: There is no evidence of fracture nor listhesis. No significant prevertebral soft tissue swelling. There is no significant facet joint malalignment. No significant osseous lesions evident. IMPRESSION: No acute intracranial findings on this noninfused CT scan of the brain. No evidence of cervical spine fracture, malalignment, nor acute compromise of the cervical spinal canal. Report called by myself to ER physician 03/26/2025 at 5:10 p.m. RADIATION DOSE DELIVERED: 1,317.31mGy.cm Total DLP DATA REPOSITORY: All CT scans at this facility are submitted to the National Radiology Data Registry (NRDR) Dose Index Registry (DIR) with the [employer] (ACR). RADIATION OPTIMIZATION: All CT scans at this facility use at least one of these dose optimization techniques: automated exposure control; mA and/or kV adjustment per patient size (includes targeted exams where dose is matched to clinical indication); or iterative reconstruction.
[2025-03-26 16:50] LABS: Abs Immature Grans 0.04 10^3/uL (0.0-0.06); HCT 49.6 % (40.0-50.0); HGB 16.8 g/dL (13.5-17.5); Immature Grans % 0.6 %; MCH 29.7 pg (27.0-33.0); MCHC 33.9 % (32.0-36.0); MCV 88 fL (80-95); MPV 10.8 fL (8.0-11.0); Platelet Count 202 10^3/uL (130-400); RBC 5.66 10^6/uL (4.36-5.78); RDW 12.4 % (11.8-14.1); RDW-SD 39.7 fL; WBC 7.02 10^3/uL (4.4-10.8)
[2025-03-26 17:05] LABS: Magnesium 2.2 mg/dL (1.6-2.6)
[2025-03-26 17:07] LABS: ALT 30 U/L (10-49); AST 25 U/L (<34); Albumin 4.6 g/dL (3.2-5.0); Alkaline Phosphatase 78 U/L (46-116); Anion Gap 9.8 mmol/L (3-11); BUN 15 mg/dL (9-23); Bilirubin, Total 0.4 mg/dL (0.2-1.2); CO2 27.2 mmol/L (20.0-31.0); Calcium 8.9 mg/dL (8.3-10.6); Chloride 104 mmol/L (98-107); Glucose 118 mg/dL (74-106); Potassium 3.8 mmol/L (3.5-5.1); Sodium 141 mmol/L (136-145); Total Protein 7.5 g/dL (5.7-8.2)
[2025-03-26 17:13] LABS: Troponin I < 3 ng/L (<54)
--- NOTE | 2025-03-26 17:37 | W.ED.GENAD ---
Discharge Plan Disposition Patient Disposition: Home Discharge Details Clinical Impression: Neuropathy, Multiple falls Primary Care Provider: Alvaro Lee ED Provider: Joss Ortega Home Meds and New Rx's Prescriptions: No Action aspirin 81 mg tablet,delayed release (DR/EC) 81 mg PO DAILY venlafaxine 37.5 mg capsule,extended release 24hr 37.5 mg PO DAILY ketoconazole 2 % cream 1 applic topical DAILY Qty: 120 6RF Rx Instructions: Apply to 1g to skin and toenails once daily pioglitazone 15 mg tablet 15 mg PO DAILY Patient Comments: for 90 days allopurinol 300 mg tablet 300 mg PO DAILY (DME) blood-glucose meter Misc See Dose Instructions .ROUTE .MEDSUPPLY Qty: 1 0RF Dose Instruction: As directed Rx Instructions: One touch verio E11.9 Once daily testing Balanced B-100 Complex 100 mg tablet extended release 1 tab PO DAILY Jardiance 25 mg tablet 25 mg PO QAM Qty: 90 5RF metoprolol succinate 25 mg tablet extended release 24 hr 25 mg PO DAILY risperidone [Risperdal] 2 mg tablet 2 mg PO BID lisinopril 10 mg tablet 5 mg PO DAILY cyproheptadine 4 mg tablet See Rx Instructions PO HS Qty: 180 3RF Rx Instructions: Take 4 mg at bedtime every night. Ok to take an additional 4 mg tab once daily as needed for headaches. multivitamin 1 EACH tablet 1 tab PO DAILY (DME) lancets [FreeStyle Lancets] 28 gauge misc See Rx Instructions .ROUTE .MEDSUPPLY Qty: 100 5RF Rx Instructions: daily testing E11.9. One Touch Verio Lancets rosuvastatin 10 mg tablet 10 mg PO HS Qty: 90 6RF nystatin 100,000 unit/gram cream 1 - 2 applic TP BID PRN (Reason: rash) Qty: 30 0RF (DME) Blood Glucose Test Strip See Rx Instructions .ROUTE .MEDSUPPLY Qty: 100 7RF Rx Instructions: One Touch Verio test strips E11.9. Test daily (DME) lancets [OneTouch Delica Lancets] 33 gauge misc See Rx Instructions .ROUTE DAILY Qty: 100 5RF Rx Instructions: E11.9 daily venlafaxine 75 mg capsule,extended release 24hr 75 mg PO DAILY Qty: 90 5RF gabapentin 300 mg capsule 300 mg PO BID Qty: 180 5RF esomeprazole magnesium [Nexium] 20 mg capsule,delayed release(DR/EC) 20 mg PO HS Qty: 90 3RF glipizide 10 mg tablet 10 mg PO DAILY Patient Comments: TAKE ONE TABLET BY MOUTH EVERY DAY Discharge Instructions Instructions: Preventing falls in adults, Peripheral Neuropathy (DC) Additional Instructions: As discussed, you have been referred to physical therapy for further evaluation as I believe that your frequent falls are due to worsening neuromuscular function of your lower extremities due to your chronic neuropathy. Please follow-up with your primary care provider regarding your visit to the emergency department today. Be sure to discuss results of all test performed here today to include radiology, and laboratory testing as well as results for any pending cultures. Should your symptoms worsen, or if you develop new concerning symptoms, please return immediately emergency department for further evaluation. Stand Alone Forms: Portal Information HPI General Date/Time Provider Initiated Documentation: 03/26/25 16:10. HPI Narrative: MDM/Narrative: 59-year-old male with past medical history of diabetes with well-established peripheral neuropathy, presents for multiple falls over the past several weeks. Vital signs are normal limits. Physical exam shows no focal evidence of acute traumatic injuries. Neurologic exam shows no focal deficits other than decreased sensation of the bilateral lower extremities. Suspect that patient's falls are due to worsening proprioception of his chronic diseases, however will screen for evidence of acute intracranial injury, metabolic derangement or infection/inflammation which may explain the patient's progressive symptoms. ED course: ED labs are unremarkable, CT imaging of the head and neck showed no acute findings, plan of care discussed with the patient and , patient notes that he lives in a ranch style home does not need to ascend stairs, we talked at length about proprioception, and how his chronic diabetes may be causing worsening of his ability to sense and handle tripping hazards. Patient also notes that he currently has a walker at home which I recommend he uses if he is feeling unsteady. I have recommended the patient discuss with his primary care provider indications for obtaining a walker, and to return to the emergency department should he have any other new or concerning symptoms. Disposition: Home HPI: 59-year-old male with past medical history of diabetes, CVA, hyperlipidemia, presents for evaluation of multiple falls. Patient states that he recently was told by his healthcare provider that he should go to the ER for further testing as he described that he has been having multiple falls over the past several weeks. He notes most recently yesterday, when entering a house, he tripped over the door frame, was able to catch himself with his hands. He notes similar instances in which he visited his son's house, and tripped over the threshold of the door as well. He denies any significant head trauma, preceding symptoms such as dizziness, palpitations, chest pain, shortness of breath or vertigo. And denies any complaints currently. He does note chronic neuropathy in his feet, but denies any numbness that is new, weakness, change in vision, and changes in speech or any other new or concerning symptoms. ROS: Negative besides as mentioned above Exam: Gen: A&O NAD HEENT: NCAT, EOMI, not icteric. External ears normal. No rhinorrhea. Moist mucous membranes. Neck: Supple, full range of motion, no observable masses, No meningeal sign. Lungs: No Respiratory distress. CV: RRR, no edema. Abdomen: Soft, nondistended, No rebound tenderness. MSK: No joint swelling, no redness. Skin: No rashes, petechiae, lesions. Normal color per patient. Neuro: Normal Gait, Grossly intact. Decreased sensation to light touch in bilateral lower extremities. Psych: Appropriate for situation. Rhythm: NSR Rate: 74 [place]: Normal axis Intervals: Normal intervals Other findings: No acute ST segment or T wave changes to suggest acute ischemia. Labs: Laboratory Tests Range/Units 03/26/25 16:45 WBC (4.4-10.8) 10^3/uL 7.02 RBC (4.36-5.78) 10^6/uL 5.66 Hgb (13.5-17.5) g/dL 16.8 Hct (40.0-50.0) % 49.6 MCV (80-95) fL 88 MCH (27.0-33.0) pg 29.7 MCHC (32.0-36.0) % 33.9 RDW (11.8-14.1) % 12.4 Plt Count (130-400) 10^3/uL 202 MPV (8.0-11.0) fL 10.8 Immature Gran % % 0.6 Neutrophils % % 60.8 Lymphocytes % % 24.5 Monocytes % % 12.0 Eosinophils % % 1.4 Basophils % % 0.7 Nucleated RBC % (0.0-0.3) % 0.0 Absolute Neutrophils (1.2-6.7) 10^3/uL 4.27 Absolute Lymphocytes (1.2-3.4) 10^3/uL 1.72 Absolute Monocytes (0.1-0.8) 10^3/uL 0.84 H Absolute Eosinophils (0.0-0.7) 10^3/uL 0.10 Absolute Basophils (0.0-0.2) 10^3/uL 0.05 Sodium (136-145) mmol/L 141 Potassium (3.5-5.1) mmol/L 3.8 Chloride (98-107) mmol/L 104 Carbon Dioxide (20.0-31.0) mmol/L 27.2 Anion Gap (3-11) mmol/L 9.8 BUN (9-23) mg/dL 15 Creatinine (0.73-1.18) mg/dL 0.79 Est GFR (CKD-EPI 2020) (mL/min/1.73m2) 99.43 Glucose (74-106) mg/dL 118 H Calcium (8.3-10.6) mg/dL 8.9 Magnesium (1.6-2.6) mg/dL 2.2 Total Bilirubin (0.2-1.2) mg/dL 0.4 AST (<34) U/L 25 ALT (10-49) U/L 30 Alkaline Phosphatase (46-116) U/L 78 Troponin I (<54) ng/L < 3 NT-Pro-B Natriuret Pep (<300) pg/mL < 35 Total Protein (5.7-8.2) g/dL 7.5 Albumin (3.2-5.0) g/dL 4.6 Radiology: Accession No. : [id number] Creator : Manav Conner Dictator : Manav Conner Test Engine Evaluator : Sausage Grinder : Manav Conner Approver2 : Report Date : 03/26/2025 17:11:30 Exam(s) CT HEAD CERVICAL SPINE WO EXAM: CT HEAD CERVICAL SPINE WO CLINICAL HISTORY: Trauma. TECHNIQUE: Imaging Protocol: Axial computed tomography images with coronal and sagittal reformatted images were created and reviewed COMPARISON: CT HEAD NECK FACIAL WO from 11/12/2017 FINDINGS: BRAIN: There are no skull fractures nor fluid in the visualized paranasal sinuses. There is no evidence of intracranial hemorrhage, mass effect, or shift of midline structures. There are no extra-axial fluid collections. The ventricles are not enlarged or shifted and there is no blood within the ventricular system nor within the basal cisterns. CERVICAL SPINE: There is no evidence of fracture nor listhesis. No significant prevertebral soft tissue swelling. There is no significant facet joint malalignment. No significant osseous lesions evident. IMPRESSION: No acute intracranial findings on this noninfused CT scan of the brain. No evidence of cervical spine fracture, malalignment, nor acute compromise of the cervical spinal canal. Report called by myself to ER physician 03/26/2025 at 5:10 p.m. RADIATION DOSE DELIVERED: 1,317.31mGy.cm Total DLP DATA REPOSITORY: All CT scans at this facility are submitted to the National Radiology Data Registry (NRDR) Dose Index Registry (DIR) with the [employer] (ACR). RADIATION OPTIMIZATION: All CT scans at this facility use at least one of these dose optimization techniques: automated exposure control; mA and/or kV adjustment per patient size (includes targeted exams where dose is matched to clinical indication); or iterative reconstruction. Related Data Home Medications ?Medication ?Instructions ?Recorded ?Confirmed multivitamin 1 tab PO DAILY 07/13/12 03/26/25 aspirin 81 mg tablet,delayed 81 mg PO DAILY 03/25/21 03/26/25 release blood-glucose meter #1 ea 05/14/21 03/26/25 lancets 28 gauge (FreeStyle #100 ea 06/18/21 03/26/25 Lancets) vit B complex 100 combo no.2 100 1 tab PO DAILY 06/18/21 03/26/25 mg tablet,extended release (Balanced B-100 Complex) empagliflozin 25 mg tablet 25 mg PO QAM #90 tabs 06/01/22 03/26/25 (Jardiance) rosuvastatin 10 mg tablet 10 mg PO HS #90 tabs 06/21/22 03/26/25 nystatin 100,000 unit/gram topical 1 - 2 applic topical BID PRN rash 07/05/22 03/26/25 cream #30 grams blood sugar diagnostic (Blood #100 ea 07/14/22 03/26/25 Glucose Test strips) lancets 33 gauge (OneTouch Delica #100 ea 09/14/22 03/26/25 Lancets) esomeprazole magnesium 20 mg 20 mg PO HS #90 caps 06/06/23 03/26/25 capsule,delayed release (Nexium) gabapentin 300 mg capsule 300 mg PO BID #180 caps 06/06/23 03/26/25 venlafaxine 75 mg capsule,extended 75 mg PO DAILY #90 caps 06/06/23 03/26/25 release 24 hr metoprolol succinate 25 mg 25 mg PO DAILY 07/27/23 03/26/25 tablet,extended release 24 hr venlafaxine 37.5 mg 37.5 mg PO DAILY 10/13/23 03/26/25 capsule,extended release 24 hr risperidone 2 mg tablet (Risperdal) 2 mg PO BID 11/10/23 03/26/25 glipizide 10 mg tablet 10 mg PO DAILY 04/02/24 03/26/25 lisinopril 10 mg tablet 5 mg PO DAILY 06/26/24 03/26/25 ketoconazole 2 % topical cream 1 applic topical DAILY #120 grams 10/30/24 03/26/25 cyproheptadine 4 mg tablet See Rx Instructions PO HS migraine 12/03/24 03/26/25 headache #180 tabs pioglitazone 15 mg tablet 15 mg PO DAILY 02/28/25 03/26/25 allopurinol 300 mg tablet 300 mg PO DAILY 03/05/25 03/26/25 Previous Rx's ?Medication ?Instructions ?Recorded blood-glucose meter #1 ea 05/14/21 lancets 28 gauge (FreeStyle #100 ea 06/18/21 Lancets) empagliflozin 25 mg tablet 25 mg PO QAM #90 tabs 06/01/22 (Jardiance) rosuvastatin 10 mg tablet 10 mg PO HS #90 tabs 06/21/22 nystatin 100,000 unit/gram topical 1 - 2 applic topical BID PRN rash 07/05/22 cream #30 grams blood sugar diagnostic (Blood #100 ea 07/14/22 Glucose Test strips) lancets 33 gauge (OneTouch Delica #100 ea 09/14/22 Lancets) esomeprazole magnesium 20 mg 20 mg PO HS #90 caps 06/06/23 capsule,delayed release (Nexium) gabapentin 300 mg capsule 300 mg PO BID #180 caps 06/06/23 venlafaxine 75 mg capsule,extended 75 mg PO DAILY #90 caps 06/06/23 release 24 hr ketoconazole 2 % topical cream 1 applic topical DAILY #120 grams 10/30/24 cyproheptadine 4 mg tablet See Rx Instructions PO HS migraine 12/03/24 headache #180 tabs Allergies Allergy/AdvReac Type Severity Reaction Status Date / Time Penicillins Allergy Unknown Other (See Verified 03/26/25 16:13 Comment) venom-honey bee Allergy Swelling Verified 03/26/25 16:13 metformin AdvReac Intermediate diarrhea Verified 03/26/25 16:13 diphenhydramine HCl AdvReac hyper Verified 03/26/25 16:13 General Stated Complaint: Fall/Non TraumaCriteria SIS: 3 Course Vital Signs Vital signs: Vital Signs Temperature 36.4 C 03/26/25 16:10 Pulse 90 03/26/25 16:10 Respiratory Rate 16 03/26/25 16:10 Blood Pressure 139/69 03/26/25 16:10 Pulse Oximetry 96 03/26/25 16:10 Temperature 36.4 C 03/26/25 16:10 Pulse 90 03/26/25 16:10 Respiratory Rate 16 03/26/25 16:10 Blood Pressure 139/69 03/26/25 16:10 Pulse Oximetry 96 03/26/25 16:10 Pain Level 0 03/26/25 16:10 Lab/Test Results Lab/Test Results: Laboratory Tests Range/Units 03/26/25 16:45 WBC (4.4-10.8) 10^3/uL 7.02 RBC (4.36-5.78) 10^6/uL 5.66 Hgb (13.5-17.5) g/dL 16.8 Hct (40.0-50.0) % 49.6 MCV (80-95) fL 88 MCH (27.0-33.0) pg 29.7 MCHC (32.0-36.0) % 33.9 RDW (11.8-14.1) % 12.4 Plt Count (130-400) 10^3/uL 202 MPV (8.0-11.0) fL 10.8 Immature Gran % % 0.6 Neutrophils % % 60.8 Lymphocytes % % 24.5 Monocytes % % 12.0 Eosinophils % % 1.4 Basophils % % 0.7 Nucleated RBC % (0.0-0.3) % 0.0 Absolute Neutrophils (1.2-6.7) 10^3/uL 4.27 Absolute Lymphocytes (1.2-3.4) 10^3/uL 1.72 Absolute Monocytes (0.1-0.8) 10^3/uL 0.84 H Absolute Eosinophils (0.0-0.7) 10^3/uL 0.10 Absolute Basophils (0.0-0.2) 10^3/uL 0.05 Sodium (136-145) mmol/L 141 Potassium (3.5-5.1) mmol/L 3.8 Chloride (98-107) mmol/L 104 Carbon Dioxide (20.0-31.0) mmol/L 27.2 Anion Gap (3-11) mmol/L 9.8 BUN (9-23) mg/dL 15 Creatinine (0.73-1.18) mg/dL 0.79 Est GFR (CKD-EPI 2020) (mL/min/1.73m2) 99.43 Glucose (74-106) mg/dL 118 H Calcium (8.3-10.6) mg/dL 8.9 Magnesium (1.6-2.6) mg/dL 2.2 Total Bilirubin (0.2-1.2) mg/dL 0.4 AST (<34) U/L 25 ALT (10-49) U/L 30 Alkaline Phosphatase (46-116) U/L 78 Troponin I (<54) ng/L < 3 NT-Pro-B Natriuret Pep (<300) pg/mL < 35 Total Protein (5.7-8.2) g/dL 7.5 Albumin (3.2-5.0) g/dL 4.6 PFSH All Active Problems (Updated 03/26/25 @ 18:12 by Joss Ortega MD) Multiple falls (Acute) Neuropathy (Acute) Dystrophia unguium (Acute) Onychomycosis (Acute) Contact dermatitis (Acute) Peripheral neuropathy (Acute) Pain in left foot (Acute) Ingrown toenail (Acute) PVD (peripheral vascular disease) (Chronic) CVA, bi-lat basal ganglia infarcts on 2016 MRI. R carotid stenosis; no significant stenosis on 2023 u/s. 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 Asymptomatic. Needs yearly ultrasound follow-up. Gout (Chronic 06/08/17) Hyperlipidemia (Acute 09/19/12) Metabolic dysfunction-associated steatohepatitis (MASH) (Acute) Generalized weakness (Acute) Fecal incontinence (Acute) Illiterate (Acute) Edentulous (Acute) Former smoker (Acute) Hallucinations (Acute) Worsening headaches (Acute) Low back pain (Acute) Wears hearing aid in both ears (Acute) Tubular adenoma of colon (Acute) Obesity (Chronic) Left leg numbness (Acute) Right leg numbness (Acute) Facial pain (Acute) Abnormal stress test (Acute) ischemic changes in inferior and lateral leads - needs cath LFT elevation (Acute) Sleep apnea (Acute) Tachycardia (Acute) Migraine headache without aura (Acute) Conductive hearing loss, external ear (Acute) Ventricular arrhythmia (Acute 12/16/06) Vivid dream (Acute 02/08/17) Sensorineural hearing loss (SNHL), bilateral (Chronic) Chronic left-sided low back pain with left-sided sciatica (Acute) Unspecified intellectual disabilities (Chronic) IQ-53 Reduced libido (Chronic 04/01/11) Peptic reflux disease (Chronic) Multiple somatic complaints (Chronic) Depressive disorder (Chronic) with psychotic features hears voices Anxiety (Chronic) Alcohol intake above recommended sensible limits (Chronic) Medical History Fever and chills Acute abdominal pain in left lower quadrant Left-sided chest wall pain Bilateral inguinal hernia without obstruction or gangrene Diarrhea Rotator cuff tear, right History of ETOH abuse Carpal tunnel syndrome Gastrointestinal hemorrhage Skin lesion (04/19/17) Weakness of right side of body (05/26/16) Right facial numbness (05/26/16) OCCASIONALLY Plantar fascia syndrome (11/04/14) Surgical History History of colonoscopy (~2022) S/P laparoscopic appendectomy w/ umbilical hernia repair History of esophagogastroduodenoscopy History of shoulder surgery History of tooth extraction Status post wrist surgery Family History Mother , AGE 56 Essential hypertension Leukemia Stomach cancer Father , AGE 85 Essential hypertension Depression Stroke Alcohol abuse A-fib Heart disease Sister Essential hypertension Heart disease Hyperlipidemia Sister Essential hypertension Cancer skin Sister No problems noted. Maternal Grandfather , AGE 68 Essential hypertension Heart disease Paternal Grandfather , AGE 83 Essential hypertension Stomach cancer Colon cancer Maternal Grandmother , AGE 89 Asthma Paternal Grandmother , AGE 84 Stroke Asthma Social History Smoking/Tobacco Use Status: Former Tobacco Use tobacco type: cigarettes Quit Date: 04/18/81 Tobacco: How many years used: 35 Smokeless tobacco user: chewing tobacco Second Hand Exposure: Yes Smoking risk assessment performed?: Yes Alcohol Intake: never Drug use: Never Substance use type: does not use Caregiver/Support person: No Household members: spouse Housing: house Communication Needs: Hard of Hearing, Corrective Lenses and Cannot Read Do you need help understanding health information?: Rarely 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 Pets and animals: Yes Pets and animals: cat(s) Sexually active: No Do you think of yourself as: straight/heterosexual Current gender identity: male What is your relationship status?: How often do you talk on the phone with friends or family?: three or more times per week How often do you get together with friends or relatives?: once per week How often do you attend hoahaoism or quaker services?: 1-3 times per year Do you belong to any clubs or organized social groups?: no Panel score (0-1 are the most socially isolated patients): 2 What type of physical activity do you participate in: walking and aerobic Duration: 15-30 minutes/day Frequency: 3-4 times per week Tatianna/Methodist: Jew Special tatianna needs: No Seatbelt use: always Helmet use: No Drive intox or ride w/intox bulk tank driver: No Do you feel safe at home: Yes Victim of physical abuse: No Victim of emotional abuse: No Victim of sexual abuse: No Would you like helpful sources: No Additional Social history: unble to assess privately
[2025-03-26 18:21] VITALS: BP 142/76; PULSE 92; RESP 16; O2SAT 93
[2025-03-26 18:45] LABS: Troponin I < 3 ng/L (<54)
== END 2025-03-26 18:44 | disposition home or self-care (01) ==
PROVIDERS: Emergency Provider General Practice; PCP Physician Assistant
DX: G62.9 Polyneuropathy, unspecified (principal); R29.6 Repeated falls
CPT/HCPCS: 99283; 99284; 80053; 93005; 70450; 72125; 83735; 83880; 84484; 85025; 93010